=== PATIENT | female | born 1935 | race Caucasian/White ===

== ENCOUNTER 2017-05-13 10:35 | Inpatient (IN) | payer OTHER, BC ==
[~2017-05-13] VITALS: Ht 154.9 cm; Wt 94.4 kg
[~2017-05-13 10:35] MED LIST: ASPI-232 PO; CALC200T PO; CLOP1TAB15 PO; DIGO0.1267 PO; FENO160T PO; FURO40TA3 PO; GABA300C19 PO; INSU70IN2 SC; ISOS60TA2 PO; PANT40TA PO; RMR15 PO; TPRSR/50 PO; TRAM-10 PO; VYT1080 PO; WARF7.5T4 PO
[2017-05-13] MEDS ORDERED: ALBUT/IPRATROP 3MG/0.5MG NEB 3 ML VIAL INH STA (11:07)
--- NOTE | 2017-05-13 11:13 | EMERGENCY ROOM VISIT NOTE ---
History Report prepared by Annalee: Hiren Maravilla Under the Supervision of: Dr. Sin Vemra M.D. First contact with patient: 10:57 Chief Complaint: NAUSEA Stated Complaint: NAUSEA, UNABLE TO STAND UP Nursing Triage Summary: Nauseated since last night and dyspnea. Last BM a few days ago. Chronic constipation issues. History of Present Illness The patient is an 81 year old female who presents to the Emergency Room with complaints of persistent nausea since last night. That patient's states that "she just feels sick." She describes feeling generally weak. This morning she has also had urinary frequency and burning with urination. She has baseline shortness of breath secondary to asthma, but notes that she is more short of breath today. She also started coughing yesterday. She has inhalers at home. She denies fevers, headache, chest pain, abdominal pain, back pain, or numbness. The patient states that she hasn't taken her medications for two days , however her states that she took her medications this morning. The patient denies the possibility of taking too much medication. The patient has constipation chronically. She hasn't had a BM in several days. The patient takes Plavix, Coumadin, and Digoxin. She is diabetic. The patient's BSG was 219 this morning per . She takes insulin. The patient's notes that she is intermittently confused. The patient has a history of cancer, and is currently in remission. The patient is s/p colon resection. Source of History: patient, spouse/significant other Onset: last night Position: other (GI) Quality: other (nausea) Timing: other (persistent) Associated Symptoms: + cough, + SOB, + urinary symptoms, + weakness, No fevers, No headache, No chest pain, No vomiting, No abdominal pain, No back pain , No numbness Review of Systems See HPI for pertinent positives & negatives. A total of 10 systems reviewed and were otherwise negative. Past Medical & Surgical Medical Problems: (1) Coronary artery disease (2) Depression (3) Diabetes (4) Elevated troponin (5) Fever Old medical records were reviewed. Nurse's notes were reviewed and I agree with. Cardiac disease. She tells me she's had 7 stents in the past Family History Patient reports no known family medical history. Social History Smoking Status: Never Smoker Drug Use: none Marital Status: Occupation Status: retired Current/Historical Medications Scheduled Aspirin (Aspir-81), 81 MG PO DAILY Calcium Carbonate-Vitamin D (Oscal 500/200 D-3), 1 TAB PO BID Citalopram Hydrobromide (Celexa), 20 MG PO DAILY Clopidogrel (Plavix), 75 MG PO DAILY Digoxin (Digoxin), 0.125 MG PO MWF Ezetimibe/Simvastatin (Vytorin 10-80 mg), 1 TAB PO QPM Fenofibrate (Tricor), 160 MG PO DAILY Fluticasone-Salmeterol 115/21 Mcg (Advair Hfa 115/21 Mcg), 2 PUFF INH BID Gabapentin (Neurontin), 300 MG PO HS Insulin Isophan/Regular (Novolin 70/30), 32 UNITS SC QAM Insulin Isophan/Regular (Novolin 70/30), 34 UNITS SC QPM Isosorbide Mononitrate Ext Rel (Imdur Ext Rel), 30 MG PO DAILY Metoprolol Succinate (Metoprolol Succinate ER), 75 MG PO DAILY Nitroglycerin (Nitrostat), 0.4 MG UT PRN Pantoprazole Sodium (Protonix), 40 MG PO DAILY Warfarin Sodium (Warfarin Sodium), 0 PO UD Scheduled PRN Albuterol Sulfate (Proventil Hfa), 2 PUFFS INH Q4 PRN for Wheezing Furosemide (Lasix), 40 MG PO PRN PRN for fluid retention Hydrocodone/Acetaminophen 5MG/325MG ([place] 5MG/325MG), 1 TABLET PO Q4H PRN for Pain Allergies Coded Allergies: Sulfa Antibiotics (Unverified Allergy, Unknown, HIVES, 06/07/16) Physical Exam Vital Signs Date Time Temp Pulse Resp B/P (MAP) Pulse Ox O2 Delivery O2 Flow Rate FiO2 05/13/17 13:13 95 Room Air 05/13/17 12:33 85 25 190/108 95 Room Air 05/13/17 10:50 36.7 62 24 195/92 94 Room Air Physical Exam General: Mildly tachypneic older female, otherwise in no acute distress. Alert to person and place but not date. HEENT: Normal cephalic atraumatic. Pupils are equal round and reactive to light. Extraocular movements are intact. Oropharynx is pink with moist mucous membranes. No swelling of the mouth lips or tongue. Neck: Supple with a midline trachea. No meningeal signs or stiffness, no JVD or bruits. No Stridor. Chest: Clear to auscultation bilaterally. No wheezes or rhonchi. No increased work of breathing. Heart: regular rate and rhythm. Abdomen: Soft nontender, nondistended without rebound guarding or rigidity. Extremities: 1+ bilateral lower extremity edema with chronic venous changes. No cyanosis or clubbing. No calf tenderness or assymetry Spine/Back. Non tender to palpation. No CVA tenderness Skin: Good turgor without rashes. Neurologic exam: Cranial nerves two through 12 are intact. Motor and sensation are intact and symmetrical throughout. Medical Decision & Procedures ER Provider Diagnostic Interpretation: X-ray results as stated below per interpretation by me and the radiologist: Radiology results as stated below per my review and radiologist interpretation: CHEST ONE VIEW PORTABLE CLINICAL HISTORY: Chest pain and nausea. COMPARISON STUDY: Chest radiograph June 07, 2016. FINDINGS: There is no pneumothorax or pleural effusion. There is no evidence for pulmonary edema. There is mild lower lung interstitial thickening which is similar to prior exam. Moderate cardiomegaly is noted. There is no lobar consolidation. IMPRESSION: 1. Mild lower lung interstitial thickening. This is similar to prior exam and may be chronic. 2. Moderate cardiomegaly. No evidence of overt edema. Electronically signed by: Artie Hassan M.D. 05/13/2017 11:39 AM Dictated Date/Time: 05/13/2017 11:[address] OF THE HEAD WITHOUT CONTRAST CLINICAL HISTORY: Weakness. Nausea. COMPARISON STUDY: No previous studies for comparison. CT DOSE: 537.48 mGy.cm TECHNIQUE: Helical axial images of the head were obtained without IV contrast. Automated exposure control was utilized for the study. FINDINGS: No acute intracranial hemorrhage, midline shift or mass effect is present. Ventricular system is unremarkable for age. Basilar cisterns are patent. There are no extra axial collections. White matter hypodensity suggests small vessel disease. There are no findings to suggest acute dural sinus thrombosis or acute territorial infarct. There are no significant calvarial abnormalities. Visualized portions of the sinuses and mastoid air cells are clear. IMPRESSION: No acute intracranial findings. Electronically signed by: Artie Hassan M.D. 05/13/2017 12:28 PM Dictated Date/Time: 05/13/2017 12:26 PM Laboratory Results 05/13/17 11:20 Red Blood Count 5.17, Mean Corpuscular Volume 89.2, Mean Corpuscular Hemoglobin 27.7, Mean Corpuscular Hemoglobin Concent 31.0, Mean Platelet Volume 10.8, Neutrophils (%) (Auto) 74.3, Lymphocytes (%) (Auto) 14.3, Monocytes (%) (Auto) 9.0, Eosinophils (%) (Auto) 1.4, Basophils (%) (Auto) 0.3, Neutrophils # (Auto) 5.17, Lymphocytes # (Auto) 1.00, Monocytes # (Auto) 0.63, Eosinophils # (Auto) 0.10, Basophils # (Auto) 0.02 05/13/17 11:20 Test 05/13/17 11:20 05/13/17 12:07 White Blood Count 6.97 K/uL (4.8-10.8) Red Blood Count 5.17 M/uL (4.2-5.4) Hemoglobin 14.3 g/dL (12.0-16.0) Hematocrit 46.1 % (37-47) Mean Corpuscular Volume 89.2 fL (80-100) Mean Corpuscular Hemoglobin 27.7 pg (25-34) Mean Corpuscular Hemoglobin Concent 31.0 g/dl (32-36) Platelet Count 216 K/uL (130-400) Mean Platelet Volume 10.8 fL (7.4-10.4) Neutrophils (%) (Auto) 74.3 % Lymphocytes (%) (Auto) 14.3 % Monocytes (%) (Auto) 9.0 % Eosinophils (%) (Auto) 1.4 % Basophils (%) (Auto) 0.3 % Neutrophils # (Auto) 5.17 K/uL (1.4-6.5) Lymphocytes # (Auto) 1.00 K/uL (1.2-3.4) Monocytes # (Auto) 0.63 K/uL (0.11-0.59) Eosinophils # (Auto) 0.10 K/uL (0-0.5) Basophils # (Auto) 0.02 K/uL (0-0.2) RDW Standard Deviation 44.4 fL (36.4-46.3) RDW Coefficient of Variation 13.6 % (11.5-14.5) Immature Granulocyte % (Auto) 0.7 % Immature Granulocyte # (Auto) 0.05 K/uL (0.00-0.02) Prothrombin Time 16.5 SECONDS (9.0-12.0) Prothromb Time International Ratio 1.5 (0.9-1.1) Activated Partial Thromboplast Time 31.7 SECONDS (21.0-31.0) Partial Thromboplastin Ratio 1.2 Anion Gap 8.0 mmol/L (3-11) Est Creatinine Clear Calc Drug Dose 33.7 ml/min Estimated GFR () 41.0 Estimated GFR (Non- 35.4 BUN/Creatinine Ratio 9.3 (10-20) Calcium Level 9.3 mg/dl (8.5-10.1) Total Bilirubin 0.9 mg/dl (0.2-1) Direct Bilirubin 0.2 mg/dl (0-0.2) Aspartate Amino Transf (AST/SGOT) 14 U/L (15-37) Alanine Aminotransferase (ALT/SGPT) 22 U/L (12-78) Alkaline Phosphatase 71 U/L (45-117) Total Creatine Kinase 104 U/L (26-192) Creatine Kinase MB 1.5 ng/ml (0.5-3.6) Creatine Kinase MB Ratio 1.4 (0-3.0) Troponin I 0.121 ng/ml (0-0.045) Total Protein 7.5 gm/dl (6.4-8.2) Albumin 3.8 gm/dl (3.4-5.0) Lipase 170 U/L (73-393) Thyroid Stimulating Hormone (TSH) 1.520 uIu/ml (0.300-4.500) Digoxin Level 0.5 ng/ml (0.8-2.0) Urine Color YELLOW Urine Appearance CLEAR (CLEAR) Urine pH >= 9.0 (4.5-7.5) Urine Specific [place] 1.018 (1.000-1.030) Urine Protein NEG (NEG) Urine Glucose (UA) 2+ (NEG) Urine Ketones NEG (NEG) Urine Occult Blood NEG (NEG) Urine Nitrite NEG (NEG) Urine Bilirubin NEG (NEG) Urine Urobilinogen NEG (NEG) Urine Leukocyte Esterase MODERATE (NEG) Urine WBC (Auto) >30 /hpf (0-5) Urine RBC (Auto) 0-4 /hpf (0-4) Urine Hyaline Casts (Auto) 1-5 /lpf (0-5) Urine Epithelial Cells (Auto) >30 /lpf (0-5) Urine Bacteria (Auto) NEG (NEG) Urine Renal Epithelial Cells /lpf (0-5) Laboratory studies as stated above per my review. Medications Administered Medications (Trade) Dose Ordered Sig/Jos Route Start Time Stop Time Status Last Admin Dose Admin Albuterol/ Ipratropium (Duoneb) 3 ml NOW STAT INH 05/13/17 11:07 05/13/17 11:10 DC 05/13/17 11:39 3 ML Aspirin (Aspirin Chew) 324 mg NOW STAT PO 05/13/17 12:56 05/13/17 12:57 DC 05/13/17 13:00 324 MG ECG Indication: weakness Rate (beats per minute): 78 Rhythm: atrial fibrillation Findings: other (non-specific T wave abnormalities, no ST elevation) Comparison ECG Date: 09 June 2016 Change: no significant change ED Course 1100: Past medical records reviewed. The patient was evaluated in room B5, and a complete history and physical examination were performed. 1107: DuoNeb 3 ml INH. 1140: The patient was resting comfortably. IV was established she is receiving a Nebulizer treatment while an EKG is being obtained. 1235: Rechecked the patient. 1255: The patient was resting comfortably. I discussed hospitalization with her and she agrees with the plan. 1256: Aspirin 324 mg PO. 1315: Discussed the case with Dr. Ram, [facility] Hospitalist .The patient will be evaluated. Medical Decision Differential diagnosis includes CHF, cardiac disease, electrolyte or metabolic abnormality, infection, intracranial process. Blood pressure Screening: Patient was found to have an elevated blood pressure and was referred to their primary doctor for recheck and further treatment. Medication Reconciliation: I attest that I have personally reviewed the patient' s current medication list. This patient comes in as described above. She has vague symptoms of not feeling well. I saw her when she was brought back from triage and she seemed pretty tachypneic after just transporting from the wheelchair to the bed after while she seemed to be doing better and after receiving albuterol/Atrovent neb. She is non-hypoxemic. EKG does not show any definite acute ischemic changes. Her troponin was mildly elevated however. She has no significant electrolyte or metabolic abnormalities acutely. She has nothing to suggest sepsis or infection as far. Chest x-ray shows cardiomegaly but no overt CHF, her BNP was also elevated. I do think she needs to be admitted. She's been weak and tired and also had some mildly elevated troponin and it is possible this is an underlying cardiac event. I have consulted Dr. Ram to see the patient in the ER. Consults Time Called: 1305 Consulting Physician: Dr. Ram [facility] Hospitalist Returned Call: [phone] The patient will be evaluated. Impression Primary Impression: Weakness Additional Impressions: Elevated troponin SOB (shortness of breath) Scribe Attestation The scribe's documentation has been prepared under my direction and personally reviewed by me in its entirety. I confirm that the note above accurately reflects all work, treatment, procedures, and medical decision making performed by me. Departure Information Dispostion Being Evaluated By Hospitalist Referrals Dipika Cox M.D. (PCP) Patient Instructions [facility] Problem Qualifiers
[2017-05-13 11:40] LABS: BASO % 0.3 %; BASO ABS # 0.02 K/uL (0-0.2); COMPLETE YES; EOS % 1.4 %; HEMATOCRIT 46.1 % (37-47); IG% 0.7 %; LYMPH % 14.3 %; MEAN CELL VOLUME 89.2 fL (80-100); MEAN CORPUSCULAR HEMOGLOBIN 27.7 pg (25-34); MEAN PLATELET VOLUME 10.8 fL (7.4-10.4); NEUT % 74.3 %; PLATELET COUNT 216 K/uL (130-400); RED BLOOD COUNT 5.17 M/uL (4.2-5.4); WHITE BLOOD COUNT 6.97 K/uL (4.8-10.8)
--- NOTE | 2017-05-13 11:40 | DIAGNOSTIC IMAGING REPORT ---
CHEST ONE VIEW PORTABLE CLINICAL HISTORY: Chest pain and nausea. COMPARISON STUDY: Chest radiograph June 07, 2016. FINDINGS: There is no pneumothorax or pleural effusion. There is no evidence for pulmonary edema. There is mild lower lung interstitial thickening which is similar to prior exam. Moderate cardiomegaly is noted. There is no lobar consolidation. IMPRESSION: 1. Mild lower lung interstitial thickening. This is similar to prior exam and may be chronic. 2. Moderate cardiomegaly. No evidence of overt edema. Electronically signed by: Artie Hassan M.D. 05/13/2017 11:39 AM Dictated Date/Time: 05/13/2017 11:37 AM
[2017-05-13 11:57] LABS: BUN/CREATININE RATIO 9.3 (10-20); CALCIUM 9.3 mg/dl (8.5-10.1); CREATININE 1.4 mg/dl (0.60-1.20); INR 1.5 (0.9-1.1); PARTIAL THROMBOPLASTIN RATIO 1.2; POTASSIUM 3.8 mmol/L (3.5-5.1); PROTHROMBIN TIME (PATIENT) 16.5 SECONDS (9.0-12.0)
[2017-05-13 12:08] LABS: CKMB/CK RATIO 1.4 (0-3.0); THYROID STIMULATING HORMONE 1.52 uIu/ml (0.300-4.500)
--- NOTE | 2017-05-13 12:30 | DIAGNOSTIC IMAGING REPORT ---
CT OF THE HEAD WITHOUT CONTRAST CLINICAL HISTORY: Weakness. Nausea. COMPARISON STUDY: No previous studies for comparison. CT DOSE: 537.48 mGy.cm TECHNIQUE: Helical axial images of the head were obtained without IV contrast. Automated exposure control was utilized for the study. FINDINGS: No acute intracranial hemorrhage, midline shift or mass effect is present. Ventricular system is unremarkable for age. Basilar cisterns are patent. There are no extra axial collections. White matter hypodensity suggests small vessel disease. There are no findings to suggest acute dural sinus thrombosis or acute territorial infarct. There are no significant calvarial abnormalities. Visualized portions of the sinuses and mastoid air cells are clear. IMPRESSION: No acute intracranial findings. Electronically signed by: Artie Hassan M.D. 05/13/2017 12:28 PM Dictated Date/Time: 05/13/2017 12:26 PM
[2017-05-13] MEDS ORDERED: INSU70IN2 SC ×2 (12:35)
[2017-05-13] MEDS ORDERED: ISOS30TA35 PO (12:35)
[2017-05-13] MEDS ORDERED: MRP15 PO (12:35)
[2017-05-13] MEDS ORDERED: LNX125 PO (12:35)
[2017-05-13] MEDS ORDERED: CITA20TA9 PO (12:35)
[2017-05-13] MEDS ORDERED: ASPIRIN 81 MG CHEW PO STA (12:56)
[2017-05-13 13:08] LABS: URINE APPEARANCE CLEAR (CLEAR); URINE BILIRUBIN NEG (NEG); URINE COLOR YELLOW; URINE EPITHELIAL CELL AUTO >30 /lpf (0-5); URINE NITRITE NEG (NEG); URINE PH >= 9.0 (4.5-7.5); URINE SPECIFIC GRAVITY 1.018 (1.000-1.030); UROBILINOGEN NEG (NEG)
[2017-05-13 13:13] VITALS: O2SAT 95; Ht 154.9 cm; Wt 94.4 kg
--- NOTE | 2017-05-13 13:15 | History and Physical ---
History & Physical Date & Time of Service: May 13, 2017 at 13:15 . Chief Complaint: nausea, weakness . Primary Care Physician: Dipika Cox M.D. . History of Present Illness Source: patient, family, clinic records, hospital records 81-year-old female followed by Dr. Cox. History of ischemic heart disease, CHF, chronic atrial fibrillation, asthma, diabetes, and other problems noted below. Did not feel well last night or this morning. She has been experiencing nausea and weakness. No fever. No chest pain. No cough. Chronic dyspnea on exertion unchanged. No abdominal pain, vomiting, diarrhea, melena, hematochezia. No urinary symptoms. No headache or focal neurologic symptoms. Did not take any of her medications this morning. Blood sugar at home was around 200 at 8 a.m. . Past Medical/Surgical History Chronic and Resolved Medical Problems: (1) Anemia Status: Chronic (2) Anxiety Status: Chronic (3) Asthma Status: Chronic (4) Carpal tunnel syndrome Status: Chronic (5) Chronic kidney disease (CKD), stage III (moderate) Status: Chronic (6) Coronary artery disease Permanent Comment: s/p UT, s/p PCI Status: Chronic (7) Depression Status: Resolved (8) Depression Status: Chronic (9) Diabetes mellitus, type 2 Status: Chronic (10) Diastolic CHF, chronic Status: Chronic (11) Dyslipidemia Status: Chronic (12) GERD (gastroesophageal reflux disease) Status: Chronic (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 Status: Chronic (14) History of colon cancer Status: Chronic (15) History of herpes zoster Status: Chronic (16) Nonalcoholic fatty liver disease Status: Chronic (17) Obesity, Class III, BMI 40-49.9 (morbid obesity) Status: Chronic (18) Osteoarthritis Status: Chronic (19) Pulmonary nodules Permanent Comment: CT and PET 2011 Status: Chronic (20) Restless leg syndrome Status: Chronic (21) Sleep apnea Status: Chronic (22) Systolic CHF, chronic Permanent Comment: LVEF 35% Status: Chronic Surgical Problems: (1) Status post radical removal vulva and nodes Status: Chronic (2) Status post cardiac catheterization Status: Chronic (3) Status post cholecystectomy Status: Chronic (4) Status post coronary artery stent placement Status: Chronic (5) Status post hysterectomy Status: Chronic (6) Status post partial colectomy Permanent Comment: colon Ca Status: Chronic . Family History FATHER Heart disease Stroke MOTHER Heart disease SON Kidney disease Diabetes mellitus DAUGHTER Heart disease Seizures Social History Smoking Status: Never Smoker Alcohol Use: occasionally (very rare) Drug Use: none Marital Status: Occupational Status: retired Multi-Drug Resistant Organisms History of MDRO: No Allergies Coded Allergies: Sulfa Antibiotics (Unverified Allergy, Unknown, HIVES, 06/07/16) Home Medications Scheduled Aspirin (Aspir-81), 81 MG PO DAILY Calcium Carbonate-Vitamin D (Oscal 500/200 D-3), 1 TAB PO BID Citalopram Hydrobromide (Celexa), 20 MG PO DAILY Clopidogrel (Plavix), 75 MG PO DAILY Digoxin (Digoxin), 0.125 MG PO MWF Ezetimibe/Simvastatin (Vytorin 10-80 mg), 1 TAB PO QPM Fenofibrate (Tricor), 160 MG PO DAILY Fluticasone-Salmeterol 115/21 Mcg (Advair Hfa 115/21 Mcg), 2 PUFF INH BID Gabapentin (Neurontin), 300 MG PO HS Insulin Isophan/Regular (Novolin 70/30), 32 UNITS SC QAM Insulin Isophan/Regular (Novolin 70/30), 34 UNITS SC QPM Isosorbide Mononitrate Ext Rel (Imdur Ext Rel), 30 MG PO DAILY Metoprolol Succinate (Metoprolol Succinate ER), 75 MG PO DAILY Nitroglycerin (Nitrostat), 0.4 MG UT PRN Pantoprazole Sodium (Protonix), 40 MG PO DAILY Warfarin Sodium (Warfarin Sodium), 0 PO UD Scheduled PRN Albuterol Sulfate (Proventil Hfa), 2 PUFFS INH Q4 PRN for Wheezing Furosemide (Lasix), 40 MG PO PRN PRN for fluid retention Hydrocodone/Acetaminophen 5MG/325MG ([place] 5MG/325MG), 1 TABLET PO Q4H PRN for Pain Review of Systems Constitutional: No fever, No weight loss Eyes: + worsening of vision (intermittent blurred vision) ENT: No hearing loss, No nasal symptoms, No sore throat Respiratory: + dyspnea on exertion (chronic), No cough Cardiovascular: + edema, No chest pain, No palpitations Abdomen: + nausea, No pain, No vomiting, No diarrhea, No GI bleeding Musculoskeletal: + joint pain (knees) Genitourinary - Female: No dysuria, No hematuria Neurologic: + memory loss, + problem reported (no headaches; no diabetic neuropathy) Psychiatric: + depression symptoms Endocrine: + fatigue, + problem reported (blood sugars fluctuate), No excessive thirst, No excessive urination Hematologic / Lymphatic: No abnormal bleeding/bruising, No swollen lymph nodes Integumentary: No rash, No new/changing skin lesions Physical Exam Vital Signs Date Time Temp Pulse Resp B/P (MAP) Pulse Ox O2 Delivery O2 Flow Rate FiO2 05/13/17 12:33 85 25 190/108 95 Room Air 05/13/17 10:50 36.7 62 24 195/92 94 Room Air General Appearance: WD/WN, no apparent distress, + obese Head: normocephalic, atraumatic Eyes: normal inspection, PERRL, EOMI, sclerae normal, + pertinent finding ( conjunctivae pink) ENT: hearing grossly normal, pharynx normal Neck: supple, no adenopathy, thyroid normal, no JVD, trachea midline Respiratory/Chest: lungs clear, no respiratory distress, no accessory muscle use Cardiovascular: regular rate, rhythm, no edema, no gallop, no JVD, no murmur, + pertinent finding (DP pulses palpable; PT pulses not palpable; capillary refill toes 2 sec) Abdomen/GI: normal bowel sounds, non tender, soft, no organomegaly Extremities/Musculoskelatal: no calf tenderness, no pedal edema, + pertinent finding (degenerative changes knees) Neurologic/Psych: 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 (PERRL, EOMI, no dysarthria, no facial palsy), no motor/sensory deficits (motor strength upper and lower extremties 4+/5 bilat), normal reflexes (plantar reflexes downgoing), + disoriented (oriented to person and place, not date; can name current but not past president; can name months forward, but not backward) Skin: normal color, warm/dry, no rash Lymphatic: no adenopathy (cervical) Diagnostics Laboratory Results Results Past 24 Hours Test 05/13/17 11:07 05/13/17 11:20 05/13/17 12:07 Range/Units Creatine Kinase MB Ratio 1.4 0-3.0 White Blood Count 6.97 4.8-10.8 K/uL Red Blood Count 5.17 4.2-5.4 M/uL Hemoglobin 14.3 12.0-16.0 g/dL Hematocrit 46.1 37-47 % Mean Corpuscular Volume 89.2 80-100 fL Mean Corpuscular Hemoglobin 27.7 25-34 pg Mean Corpuscular Hemoglobin Concent 31.0 32-36 g/dl Platelet Count 216 130-400 K/uL Mean Platelet Volume 10.8 7.4-10.4 fL Neutrophils (%) (Auto) 74.3 % Lymphocytes (%) (Auto) 14.3 % Monocytes (%) (Auto) 9.0 % Eosinophils (%) (Auto) 1.4 % Basophils (%) (Auto) 0.3 % Neutrophils # (Auto) 5.17 1.4-6.5 K/uL Lymphocytes # (Auto) 1.00 1.2-3.4 K/uL Monocytes # (Auto) 0.63 0.11-0.59 K/uL Eosinophils # (Auto) 0.10 0-0.5 K/uL Basophils # (Auto) 0.02 0-0.2 K/uL RDW Standard Deviation 44.4 36.4-46.3 fL RDW Coefficient of Variation 13.6 11.5-14.5 % Immature Granulocyte % (Auto) 0.7 % Immature Granulocyte # (Auto) 0.05 0.00-0.02 K/uL Prothrombin Time 16.5 9.0-12.0 SECONDS Prothromb Time International Ratio 1.5 0.9-1.1 Activated Partial Thromboplast Time 31.7 21.0-31.0 SECONDS Partial Thromboplastin Ratio 1.2 Sodium Level 140 136-145 mmol/L Potassium Level 3.8 3.5-5.1 mmol/L Chloride Level 108 98-107 mmol/L Carbon Dioxide Level 24 21-32 mmol/L Anion Gap 8.0 3-11 mmol/L Blood Urea Nitrogen 13 7-18 mg/dl Creatinine 1.40 0.60-1.20 mg/dl Est Creatinine Clear Calc Drug Dose 33.7 ml/min Estimated GFR () 41.0 Estimated GFR (Non- 35.4 BUN/Creatinine Ratio 9.3 10-20 Random Glucose 204 70-99 mg/dl Calcium Level 9.3 8.5-10.1 mg/dl Total Bilirubin 0.9 0.2-1 mg/dl Direct Bilirubin 0.2 0-0.2 mg/dl Aspartate Amino Transf (AST/SGOT) 14 15-37 U/L Alanine Aminotransferase (ALT/SGPT) 22 12-78 U/L Alkaline Phosphatase 71 45-117 U/L Total Creatine Kinase 104 26-192 U/L Creatine Kinase MB 1.5 0.5-3.6 ng/ml Troponin I 0.121 0-0.045 ng/ml Total Protein 7.5 6.4-8.2 gm/dl Albumin 3.8 3.4-5.0 gm/dl Lipase 170 73-393 U/L Thyroid Stimulating Hormone (TSH) 1.520 0.300-4.500 uIu/ml Digoxin Level 0.5 0.8-2.0 ng/ml Microbiology Results 05/13/17 Urine Culture, Received Pending Diagnostic Radiology CHEST ONE VIEW PORTABLE FINDINGS: There is no pneumothorax or pleural effusion. There is no evidence for pulmonary edema. There is mild lower lung interstitial thickening which is similar to prior exam. Moderate cardiomegaly is noted. There is no lobar consolidation. IMPRESSION: 1. Mild lower lung interstitial thickening. This is similar to prior exam and may be chronic. 2. Moderate cardiomegaly. No evidence of overt edema. Electronically signed by: Artie Hassan M.D. 05/13/2017 11:[address] OF THE HEAD WITHOUT CONTRAST CLINICAL HISTORY: Weakness. Nausea. COMPARISON STUDY: No previous studies for comparison. CT DOSE: 537.48 mGy.cm TECHNIQUE: Helical axial images of the head were obtained without IV contrast. Automated exposure control was utilized for the study. FINDINGS: No acute intracranial hemorrhage, midline shift or mass effect is present. Ventricular system is unremarkable for age. Basilar cisterns are patent. There are no extra axial collections. White matter hypodensity suggests small vessel disease. There are no findings to suggest acute dural sinus thrombosis or acute territorial infarct. There are no significant calvarial abnormalities. Visualized portions of the sinuses and mastoid air cells are clear. IMPRESSION: No acute intracranial findings. Electronically signed by: Artie Hassan M.D. 05/13/2017 12:28 PM . EKG EKG performed at 14:57 reviewed and demonstrated AF at 80 / minute, slight ST depression in inferior and lateral leads. . Impression Assessment and Plan CORONARY ARTERY DISEASE No chest pain. Serum troponin slightly elevated. EKG shows AF with slight ST depression in inferior and lateral leads. Check serial cardiac markers. Continue aspirin, metoprolol, nitrates, statin. CHF Records indicate both left ventricular systolic + diastolic heart failure. LVEF 35% in 2009. Compensated. ATRIAL FIBRILLATION Rate controlled. Continue metoprolol, digoxin, warfarin. ASTHMA Stable. Continue Advair, albuterol. DM TYPE 2 Blood sugars fluctuate at home. Uses 70/30 BID. Did not eat or take insulin this morning. Check Hgb A1C. Lantus / NovoLog during hospital stay. DYSLIPIDEMIA Check lipid profile. Continue ezetimibe, simvastatin, fenofibrate. DEPRESSION Continue citalopram. Consider Psychiatry consult. MEMORY DIFFICULTIES Possible early dementia. CT head shows small vessel ischemic changes. Check B12, TSH. VTE PROPHYLAXIS Continue warfarin. Ambulate. RESUSCITATION STATUS Discussed with patient and her . She does not have a living will. She would like resuscitation attempted in the event of a cardiopulmonary arrest if there is a reasonable chance of a meaningful recovery, but does not want prolonged extraordinary measures if prognosis is poor. Therefore, code status = "Level 1" (full resuscitation). DISPOSITION Expected discharge to home. Internal Medicine follow-up with Dr. Cox. . VTE Prophylaxis Given or contraindicated: Warfarin (Coumadin)
[2017-05-13 13:16] LABS: MANUAL MICROSCOPIC REQUIRED? NO; REVIEW REQ? YES; SULFASALICYLIC ACID NEG (NEG)
[2017-05-13] MEDS ORDERED: NITROGLYCERIN 0.4 MG SL PER TAB CHARGE SL PRN (13:30)
[2017-05-13] MEDS ORDERED: NTRGSL/4 UT (14:13)
[2017-05-13] MEDS ORDERED: ALBUAER INH (14:13)
[2017-05-13] MEDS ORDERED: HYDR-5688 PO (14:13)
[2017-05-13] MEDS ORDERED: FLUT115A INH (14:13)
[2017-05-13] MEDS ORDERED: WARF4TAB43 PO (14:13)
[2017-05-13] MEDS ORDERED: HYDROCODONE/ACETAMOPHEN 5/325MG TAB PO PRN (14:15)
[2017-05-13] MEDS ORDERED: ALBUTEROL HFA 8 GM INHALER INH PRN (14:15)
[2017-05-13 14:20] VITALS: BP 217/129; PULSE 89; TEMP 36.8; O2SAT 95
[2017-05-13] MEDS ORDERED: CLOPIDOGREL BISULFATE 75 MG TAB PO ONE (14:22)
[2017-05-13] MEDS ORDERED: PANTOprazole SOD 40 MG TAB PO ONE (14:22)
[2017-05-13] MEDS ORDERED: CITALOPRAM 20 MG TAB PO ONE (14:22)
[2017-05-13] MEDS ORDERED: ISOSORBIDE MONONITRATE 30 MG TABCR PO ONE (14:22)
[2017-05-13] MEDS ORDERED: METOPROLOL SUCC 50MG EXT REL TAB PO ONE (14:22)
[2017-05-13] MEDS ORDERED: LEVALBUTEROL 0.63MG/3 ML NEB INH PRN (14:30)
[2017-05-13] MEDS ORDERED: ONDANSETRON INJ 2 MG/ML 2 ML VIAL IV PRN (14:30)
[2017-05-13] MEDS ORDERED: GLUCAGON FOR INJ 1 MG VIAL SQ PRN (15:00)
[2017-05-13] MEDS ORDERED: GLUCOSE 40% GEL 15 GM TUBE PO PRN (15:00)
[2017-05-13] MEDS ORDERED: GLUCOSE 10 TABS/TUBE PO PRN (15:00)
[2017-05-13] MEDS ORDERED: DEXTROSE 50% 50 ML SYR IV PRN (15:00)
[2017-05-13] MEDS ORDERED: ENALAPRILAT IV 0.625 MG in DEXTROSE 5% 25ML 25 ML IV PRN (15:30)
[2017-05-13 15:49] VITALS: BP 178/98; PULSE 68; TEMP 37.1; O2SAT 94
[2017-05-13 16:00] VITALS: O2SAT 94
[2017-05-13] MEDS ORDERED: WARFARIN SOD 2 MG TAB PO ONE (16:00)
[2017-05-13] MEDS: INSULIN ASPART 100 UNITS/ML 3 ML PEN SC SCH ×2 (17:30→21:00)
[2017-05-13 20:19] VITALS: BP 179/87; PULSE 65; TEMP 37; O2SAT 96
[2017-05-13] MEDS: SIMVASTATIN 80 MG TAB PO SCH (21:18)
[2017-05-13] MEDS: EZETIMIBE 10MG TAB PO SCH (21:18)
[2017-05-13] MEDS: GABAPENTIN 300 MG CAP PO SCH (21:19)
[2017-05-13] MEDS: INSULIN GLARGINE SOLOSTAR 100 UNITS/ML 3 ML PEN SC SCH (21:23)
[2017-05-13] MEDS: HEPARIN SOD 5000 UNIT/0.5 ML CARP SQ SCH (21:24)
[2017-05-13 23:16] VITALS: BP_SYST 151; BP_SYST 156; BP_SYST 168; BP_DIAS 72; BP_DIAS 73; BP_DIAS 90; PULSE 100; PULSE 73; PULSE 80; TEMP 36.6; O2SAT 95
[2017-05-14] VITALS (9 sets, daily range): BP systolic 124–162; BP diastolic 71–82; PULSE 56–78; TEMP 36.4–37.1; O2SAT 90–97
[2017-05-14] MEDS: ACETAMINOPHEN 325 MG TAB PO PRN (00:38)
[2017-05-14] MEDS ORDERED: HYDROmorphone INJ 0.5 MG/0.5 ML SYR IV PRN (01:15)
[2017-05-14] MEDS: HEPARIN SOD 5000 UNIT/0.5 ML CARP SQ SCH ×2 (05:40→20:57)
[2017-05-14 06:44] LABS: BUN/CREATININE RATIO 11.4 (10-20); CALCIUM 8.6 mg/dl (8.5-10.1); CREATININE 1.4 mg/dl (0.60-1.20); POTASSIUM 4.2 mmol/L (3.5-5.1)
[2017-05-14 06:45] LABS: INR 1.3 (0.9-1.1); PROTHROMBIN TIME (PATIENT) 13.9 SECONDS (9.0-12.0)
[2017-05-14 06:56] LABS: CHOLESTEROL/HDL RATIO 4.8; CKMB/CK RATIO 1.6 (0-3.0)
[2017-05-14] MEDS: INSULIN ASPART 100 UNITS/ML 3 ML PEN SC SCH ×4 (08:02→20:55)
[2017-05-14] MEDS: INSULIN GLARGINE SOLOSTAR 100 UNITS/ML 3 ML PEN SC SCH ×2 (08:03→20:56)
[2017-05-14] MEDS: METOPROLOL SUCC 50MG EXT REL TAB PO SCH (08:03)
[2017-05-14] MEDS: PANTOprazole SOD 40 MG TAB PO SCH (08:03)
[2017-05-14] MEDS: CITALOPRAM 20 MG TAB PO SCH (08:04)
[2017-05-14] MEDS: CLOPIDOGREL BISULFATE 75 MG TAB PO SCH (08:04)
[2017-05-14] MEDS: ISOSORBIDE MONONITRATE 30 MG TABCR PO SCH (08:04)
[2017-05-14] MEDS: ASPIRIN 81 MG ECTAB PO SCH (08:04)
[2017-05-14] MEDS ORDERED: HEPARIN SOD 5000 UNIT/0.5 ML CARP SQ ONE (09:42)
--- NOTE | 2017-05-14 09:59 | Progress Note ---
Medicine Progress Note Date & Time of Visit: May 14, 2017 at 09:20 . Subjective No fever. No chest pain. Dyspnea on exertion- no change from baseline. Nausea improved. No diarrhea, melena, hematochezia. Mild dysuria, chronic. . Objective Last 8 Hrs Date Time Temp Pulse Resp B/P (MAP) Pulse Ox O2 Delivery O2 Flow Rate FiO2 05/14/17 07:34 78 21 161/82 (108) 95 Room Air 05/14/17 07:31 72 22 127/78 (94) 95 Room Air 05/14/17 07:28 36.4 68 19 151/71 (97) 91 Room Air 05/14/17 04:00 Room Air 05/14/17 03:03 36.4 67 20 138/77 (97) 90 Room Air Physical Exam: General- no distress Neck- no JVD Lungs- clear to auscultation Heart- irregular, no gallop appreciated Abdomen- + BS, soft, nontender Extremities- trace ankle edema, no calf tenderness Neuro- alert, anxious, oriented to person and place, can state day of the week, but not the year, can name last president, but not current one; can name months forward, but not backward . Laboratory Results: Last 24 Hours Test 05/13/17 11:07 05/13/17 11:20 05/13/17 12:07 05/13/17 16:16 Creatine Kinase MB Ratio 1.4 White Blood Count 6.97 K/uL Red Blood Count 5.17 M/uL Hemoglobin 14.3 g/dL Hematocrit 46.1 % Mean Corpuscular Volume 89.2 fL Mean Corpuscular Hemoglobin 27.7 pg Mean Corpuscular Hemoglobin Concent 31.0 g/dl Platelet Count 216 K/uL Mean Platelet Volume 10.8 fL Neutrophils (%) (Auto) 74.3 % Lymphocytes (%) (Auto) 14.3 % Monocytes (%) (Auto) 9.0 % Eosinophils (%) (Auto) 1.4 % Basophils (%) (Auto) 0.3 % Neutrophils # (Auto) 5.17 K/uL Lymphocytes # (Auto) 1.00 K/uL Monocytes # (Auto) 0.63 K/uL Eosinophils # (Auto) 0.10 K/uL Basophils # (Auto) 0.02 K/uL RDW Standard Deviation 44.4 fL RDW Coefficient of Variation 13.6 % Immature Granulocyte % (Auto) 0.7 % Immature Granulocyte # (Auto) 0.05 K/uL Prothrombin Time 16.5 SECONDS Prothromb Time International Ratio 1.5 Activated Partial Thromboplast Time 31.7 SECONDS Partial Thromboplastin Ratio 1.2 Sodium Level 140 mmol/L Potassium Level 3.8 mmol/L Chloride Level 108 mmol/L Carbon Dioxide Level 24 mmol/L Anion Gap 8.0 mmol/L Blood Urea Nitrogen 13 mg/dl Creatinine 1.40 mg/dl Est Creatinine Clear Calc Drug Dose 33.7 ml/min Estimated GFR () 41.0 Estimated GFR (Non- 35.4 BUN/Creatinine Ratio 9.3 Random Glucose 204 mg/dl Calcium Level 9.3 mg/dl Total Bilirubin 0.9 mg/dl Direct Bilirubin 0.2 mg/dl Aspartate Amino Transf (AST/SGOT) 14 U/L Alanine Aminotransferase (ALT/SGPT) 22 U/L Alkaline Phosphatase 71 U/L Total Creatine Kinase 104 U/L Creatine Kinase MB 1.5 ng/ml Troponin I 0.121 ng/ml Total Protein 7.5 gm/dl Albumin 3.8 gm/dl Lipase 170 U/L Thyroid Stimulating Hormone (TSH) 1.520 uIu/ml Digoxin Level 0.5 ng/ml Urine Color YELLOW Urine Appearance CLEAR Urine pH >= 9.0 Urine Specific [place] 1.018 Urine Protein NEG Urine Glucose (UA) 2+ Urine Ketones NEG Urine Occult Blood NEG Urine Nitrite NEG Urine Bilirubin NEG Urine Urobilinogen NEG Urine Leukocyte Esterase MODERATE Urine WBC (Auto) >30 /hpf Urine RBC (Auto) 0-4 /hpf Urine Hyaline Casts (Auto) 1-5 /lpf Urine Epithelial Cells (Auto) >30 /lpf Urine Bacteria (Auto) NEG Urine Renal Epithelial Cells /lpf Bedside Glucose 199 mg/dl Test 05/13/17 20:45 05/13/17 20:50 05/14/17 05:22 05/14/17 06:42 Bedside Glucose 178 mg/dl 187 mg/dl Total Creatine Kinase 103 U/L 90 U/L Creatine Kinase MB 1.0 ng/ml 1.4 ng/ml Creatine Kinase MB Ratio 1.0 1.6 Troponin I 0.111 ng/ml 0.098 ng/ml Prothrombin Time 13.9 SECONDS Prothromb Time International Ratio 1.3 Sodium Level 140 mmol/L Potassium Level 4.2 mmol/L Chloride Level 106 mmol/L Carbon Dioxide Level 30 mmol/L Anion Gap 4.0 mmol/L Blood Urea Nitrogen 16 mg/dl Creatinine 1.40 mg/dl Est Creatinine Clear Calc Drug Dose 33.9 ml/min Estimated GFR () 41.0 Estimated GFR (Non- 35.4 BUN/Creatinine Ratio 11.4 Random Glucose 201 mg/dl Calcium Level 8.6 mg/dl Triglycerides Level 235 mg/dl Cholesterol Level 134 mg/dl HDL Cholesterol 28 mg/dl LDL Cholesterol, Calculated 59 mg/dl VLDL Cholesterol, Calculated 47 mg/dl Cholesterol/HDL Ratio 4.8 Vitamin B12 Level 256 pg/mL Date/Time Source Procedure Growth Status 05/13/17 12:07 Urine , Clean Catch Urine Culture Pending Received Other Studies: EKG performed at 06:32 reviewed and demonstrated AF at 60 / minute, poor R-wave progression, slight ST depression lateral limb leads, inverted T-waves V2-6. . Assessment & Plan CORONARY ARTERY DISEASE History coronary artery disease, s/p AR, s/p cardiac cath and PCI in [place]. Presented with vague symptoms- nausea, weakness, no chest pain. Serum troponins slightly elevated- 0.121- 0.111, 0.098. Total CPK's and CPK-MB' s normal. Admission EKG showed AF with old septal infarct, slight ST depression in inferior and lateral leads. Repeat EKG today shows AF, old septal infarct, new anterolateral T-wave inversions. Continue aspirin, metoprolol, nitrates, statin. Consult Cardiology. CHF Records indicate history of both left ventricular systolic + diastolic heart failure. LVEF 35% in 2009. Last echo at [facility] 06/08/16 showed hypokinesis anterior septus, overall LVEF 50-54 %, mild MR, mild TR. Compensated. ATRIAL FIBRILLATION Rate controlled. Continue metoprolol, digoxin, warfarin. INR low- titrate warfarin. ASTHMA Stable. Continue Advair, albuterol. DM TYPE 2 Blood sugars fluctuate at home. Uses 70/30 BID. Did not eat or take insulin the morning of admission. Random blood sugar in ED was 204. Hgb A1C pending. Lantus / NovoLog during hospital stay. FBS today = 187. DYSLIPIDEMIA Total chol = 134, LDL-c = 59, TG = 235. Continue ezetimibe, simvastatin, fenofibrate. DEPRESSION Continue citalopram. MEMORY DIFFICULTIES Possible early dementia. CT head shows small vessel ischemic changes. TSH normal. B 12 = 256. DYSURIA UA showed WBC's. Urine C&S pending. VTE PROPHYLAXIS On warfarin, but INR only 1.3. Titrate warfarin. SQ heparin until INR therapeutic. Ambulate. RESUSCITATION STATUS Full code as noted in admission H&P. DISPOSITION Expected discharge to home. Internal Medicine follow-up with Dr. Cox. Cardiology follow-up with Dr. Knight. . Current Inpatient Medications: Current Inpatient Medications Medications (Trade) Dose Ordered Sig/Jos Route Start Time Stop Time Status Last Admin Dose Admin Acetaminophen (Tylenol Tab) 650 mg Q4H PRN PO 05/13/17 13:30 06/12/17 13:29 05/14/17 00:38 650 MG Nitroglycerin (Nitrostat Tab) 0.4 mg UD PRN SL 05/13/17 13:30 06/12/17 13:29 Albuterol (Ventolin Hfa Inhaler) 2 puffs Q4 PRN INH 05/13/17 14:15 06/12/17 14:14 05/14/17 01:59 2 PUFFS Aspirin (Ecotrin Tab) 81 mg DAILY PO 05/14/17 09:00 06/13/17 08:59 05/14/17 08:04 81 MG Citalopram Hydrobromide (celeXA TAB) 20 mg DAILY PO 05/14/17 09:00 06/13/17 08:59 05/14/17 08:04 20 MG Clopidogrel Bisulfate (plAVix TAB) 75 mg DAILY PO 05/14/17 09:00 06/13/17 08:59 05/14/17 08:04 75 MG Digoxin (Lanoxin Tab) 0.125 mg MoWeFr@1600 PO 05/15/17 16:00 06/14/17 15:59 EZETIMIBE (Zetia Tab) 10 mg QPM PO 05/13/17 21:00 06/12/17 20:59 05/13/17 21:18 10 MG Gabapentin (Neurontin Cap) 300 mg HS PO 05/13/17 21:00 06/12/17 20:59 05/13/17 21:19 300 MG Acetaminophen/ Hydrocodone Bitart ([place] 5/325 Tab) 1 tab Q4H PRN PO 05/13/17 14:15 05/27/17 14:14 05/13/17 21:17 1 TAB Isosorbide Mononitrate (Imdur Ext Rel Tab) 30 mg DAILY PO 05/14/17 09:00 06/13/17 08:59 05/14/17 08:04 30 MG Metoprolol Succinate (Toprol Xl Tab) 75 mg DAILY PO 05/14/17 09:00 06/13/17 08:59 05/14/17 08:03 75 MG Pantoprazole Sodium (Protonix Tab) 40 mg DAILY PO 05/14/17 09:00 06/13/17 08:59 05/14/17 08:03 40 MG Miscellaneous Information (Order Awaiting Action) 1 ea QS N/A 05/13/17 16:00 06/12/17 15:59 Warfarin Sodium (Coumadin Tab) 2 mg DAILY@16 PO 05/14/17 16:00 06/13/17 15:59 Insulin Glargine (Lantus Solostar Pen) 16 units BID SC 05/13/17 21:00 06/12/17 20:59 05/14/17 08:03 16 UNITS Insulin Aspart (novoLOG ASPART) SLIDING SCALE G... ACHS SC 05/13/17 16:15 06/12/17 15:59 05/14/17 08:02 3 UNITS Heparin Sodium (Porcine) (Heparin Sq 5000 Unit/0.5ml) 5,000 unit Q8 SQ 05/13/17 22:00 06/12/17 21:59 05/14/17 05:40 5,000 UNIT Ondansetron HCl (Zofran Inj) 4 mg Q6H PRN IV 05/13/17 14:30 06/12/17 14:29 Levalbuterol (Xopenex 0.63 Mg/ 3 Ml Neb) 0.63 mg Q6H PRN INH 05/13/17 14:30 06/12/17 14:29 Glucose (Glucose 40% Gel) 15-30 GRAMS 15 GRAMS... UD PRN PO 05/13/17 15:00 06/12/17 14:59 Glucose (Glucose Chew Tab) 4-8 Tablets 4 Tabl... UD PRN PO 05/13/17 15:00 06/12/17 14:59 Dextrose (Dextrose 50% 50ML Syringe) 25-50ML OF 50% DW IV FOR... UD PRN IV 05/13/17 15:00 06/12/17 14:59 Glucagon (Glucagon Inj) 1 mg UD PRN SQ 05/13/17 15:00 06/12/17 14:59 Simvastatin (Zocor Tab) 80 mg QPM PO 05/13/17 21:00 06/12/17 20:59 05/13/17 21:18 80 MG Enalaprilat 0.625 mg/Dextrose 25.5 ml @ 100 mls/hr Q6H PRN IV 05/13/17 15:30 06/12/17 15:29 05/13/17 21:19 100 MLS/HR Hydromorphone HCl (Dilaudid Inj) 0.5 mg Q4H PRN IV 05/14/17 01:15 05/28/17 01:14 05/14/17 01:58 0.5 MG
--- NOTE | 2017-05-14 11:30 | Cardiology Consultation ---
Cardiology Consultation Date of Consultation: May 14, 2017 Requesting Physician: rashard Attending Transportation Director: pablito History of Present Illness Patient is a 81 year old female admitted with general weakness and not filling well. Lethargic and feeling like she was in a dream like state. No cardiac symptoms. Blood glucose levels ok. Pt. has chronic afib with rate control. No fever or chills. No SOB or chest pain. History Past Medical History: 1. Atherosclerotic coronary disease, diffuse diabetic status post prior coronary intervention to the left anterior descending, left circumflex, and right coronary arteries. Most recent coronary intervention was to the right coronary artery in November 2014. 2. 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 3. Hypertension. 4. Diabetes mellitus. 5. Chronic renal insufficiency. 6. Hyperlipidemia with low HDL, dyslipidemia. 7. Chronic Atrial Fib Social History: Social History Family and Education Marital Status Number of Children 2 Tobacco Use Never smoked or used smokeless tobacco. Alcohol Use No. Drug Use No. Sexual Activity Not currently sexually active; Male partners. Social Documentation Homemaker Activities of Daily Living Service No Blood Transfusions Yes 2011 after vulvar biopsy at [facility] [place]. 09/13/12 at [facility]. Caffeine Concern Yes Occupational Exposure No Hobby Hazards No Sleep Concern No Stress Concern No Weight Concern Yes Special Diet Yes Back Care No Exercise No Seat Belt Yes Self-Exams Yes Family History: Family History Problem Relation Age of Onset Comments Diabetes Son Heart Disorder Brother Heart Disorder Daughter heart disease, seizure disorder Heart Disorder Father Heart Disorder Mother from a PA Renal Hx Son ESRD s/p dialysis and transplant Stroke Father Past Medical/Surgical History Problem List: Medical Problems: (1) Anemia (2) Anxiety (3) Asthma (4) Carpal tunnel syndrome (5) Chronic kidney disease (CKD), stage III (moderate) (6) Coronary artery disease (7) Depression (8) Depression (9) Diabetes mellitus, type 2 (10) Diastolic CHF, chronic (11) Dyslipidemia (12) GERD (gastroesophageal reflux disease) (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 (14) History of colon cancer (15) History of herpes zoster (16) Nonalcoholic fatty liver disease (17) Obesity, Class III, BMI 40-49.9 (morbid obesity) (18) Osteoarthritis (19) Pulmonary nodules (20) Restless leg syndrome (21) Sleep apnea (22) Systolic CHF, chronic Surgical Problems: (1) Status post radical removal vulva and nodes (2) Status post cardiac catheterization (3) Status post cholecystectomy (4) Status post coronary artery stent placement (5) Status post hysterectomy (6) Status post partial colectomy Review Of Systems General: The patient denies weight change, night sweats, fever, chills. Head: The patient denies headache and prior head trauma. Cardiovascular: The patient denies chest pain or chest discomfort, dyspnea on exertion, palpitations, PND, orthopnea, edema, spontaneous shortness of breath, syncope and near syncope. Pulmonary: The patient denies cough, wheeze, pleurisy, hemoptysis, sputum, and excessive snoring. Gastrointestinal: The patient denies nausea, vomiting, diarrhea, constipation, bloating, hematemesis, hematochezia, and abdominal pain. Skin: The patient denies diaphoresis and rash. Musculoskeletal: The patient denies joint pain, joint swelling, myalgia, back pain, neck pain and prior injuries. Neurological: The patient denies prior stroke and seizures Allergies Coded Allergies: Sulfa Antibiotics (Unverified Allergy, Unknown, HIVES, 06/07/16) Medications Reported Home Medications Medications Dose Route/Sig Max Daily Dose Days Date Category Dose Instructions Proventil Hfa (Albuterol Sulfate) 108 Mcg/Act Aer 2 Puffs INH Q4 PRN 05/13/17 Reported Nitrostat (Nitroglycerin) 0.4 Mg Tab 0.4 Mg UT PRN 05/13/17 Reported Roberts 5MG/325MG (Acetaminophen/Hydrocodone Bitart) Tab 1 Tablet PO Q4H PRN 05/13/17 Reported Advair Hfa 115/21 Mcg (Fluticasone-Salmeterol 115/21 Mcg) 1 Aer Aer 2 Puff INH BID 05/13/17 Reported Warfarin Sodium 2 Mg Tab 0 PO UD 05/13/17 Reported 2 mg Mon, Tues, Wed, Melissa, Sat, Sun 1 mg Fri Celexa (Citalopram Hydrobromide) 20 Mg Tab 20 Mg PO DAILY 05/13/17 Reported Imdur Ext Rel (Isosorbide Mononitrate) 30 Mg Tabcr 30 Mg PO DAILY 05/13/17 Reported Digoxin 0.125 Mg Tab 0.125 Mg PO MWF 05/13/17 Reported Novolin 70/30 (Insulin Human Isoph/Insulin Regular) Susp 34 Units SC QPM 05/13/17 Reported Novolin 70/30 (Insulin Human Isoph/Insulin Regular) Susp 32 Units SC QAM 05/13/17 Reported Plavix (Clopidogrel Bisulfate) 75 Mg Tab 75 Mg PO DAILY 06/07/16 Reported Neurontin (Gabapentin) 300 Mg Cap 300 Mg PO HS 11/27/14 Reported Oscal 500/200 D-3 (Calcium Carbonate-Vitamin D) 1 Tab Tab 1 Tab PO BID 11/27/14 Reported Protonix (Pantoprazole Sodium) 40 Mg Tab 40 Mg PO DAILY 11/27/14 Reported Metoprolol Succinate ER (Metoprolol Succinate) 50 Mg Tabcr 75 Mg PO DAILY 11/27/14 Reported Lasix (Furosemide) 40 Mg Tab 40 Mg PO PRN PRN 11/27/14 Reported Vytorin 10-80 mg (Ezetimibe/Simvastatin) 1 Tab Tab 1 Tab PO QPM 11/27/14 Reported Aspir-81 (Aspirin) 81 Mg Tab 81 Mg PO DAILY 11/27/14 Reported Tricor (Fenofibrate) 160 Mg Tab 160 Mg PO DAILY 11/27/14 Reported Physical Exam Vital Signs (Last 8hrs): Last 8 Hrs Date Time Temp Pulse Resp B/P (MAP) Pulse Ox O2 Delivery O2 Flow Rate FiO2 05/14/17 08:00 Room Air 05/14/17 07:34 78 21 161/82 (108) 95 Room Air 05/14/17 07:31 72 22 127/78 (94) 95 Room Air 05/14/17 07:28 36.4 68 19 151/71 (97) 91 Room Air 05/14/17 04:00 Room Air General Appearance: Alert and Oriented x3. NAD. Head: Normocephalic Atraumatic. Eyes: PERRLA, EOMI, conjunctiva and sclera clear Neck: Supple. No carotid bruits noted. No JVD. No HJD. Respiratory: Breath sounds clear to auscultation bilaterally. No w/r/r. Cardiovascular: Reg rate and rhythm. S1 and S2 noted. No murmurs, rubs, gallops. PMI non displace. Abdomen: Normal bowel sounds, soft nontender. no abdominal bruits. Extremities: No edema, no clubbing or cyanosis. distal pulses 2/4 bilaterally. Neuro: No focal deficits. Psychiatric: Normal affect. Data Last 24 Hours Test 05/13/17 12:07 05/13/17 16:16 05/13/17 20:45 05/13/17 20:50 Urine Color YELLOW Urine Appearance CLEAR Urine pH >= 9.0 Urine Specific [place] 1.018 Urine Protein NEG Urine Glucose (UA) 2+ Urine Ketones NEG Urine Occult Blood NEG Urine Nitrite NEG Urine Bilirubin NEG Urine Urobilinogen NEG Urine Leukocyte Esterase MODERATE Urine WBC (Auto) >30 /hpf Urine RBC (Auto) 0-4 /hpf Urine Hyaline Casts (Auto) 1-5 /lpf Urine Epithelial Cells (Auto) >30 /lpf Urine Bacteria (Auto) NEG Urine Renal Epithelial Cells /lpf Bedside Glucose 199 mg/dl 178 mg/dl Total Creatine Kinase 103 U/L Creatine Kinase MB 1.0 ng/ml Creatine Kinase MB Ratio 1.0 Troponin I 0.111 ng/ml Test 05/14/17 05:22 05/14/17 06:42 Prothrombin Time 13.9 SECONDS Prothromb Time International Ratio 1.3 Sodium Level 140 mmol/L Potassium Level 4.2 mmol/L Chloride Level 106 mmol/L Carbon Dioxide Level 30 mmol/L Anion Gap 4.0 mmol/L Blood Urea Nitrogen 16 mg/dl Creatinine 1.40 mg/dl Est Creatinine Clear Calc Drug Dose 33.9 ml/min Estimated GFR () 41.0 Estimated GFR (Non- 35.4 BUN/Creatinine Ratio 11.4 Random Glucose 201 mg/dl Calcium Level 8.6 mg/dl Total Creatine Kinase 90 U/L Creatine Kinase MB 1.4 ng/ml Creatine Kinase MB Ratio 1.6 Troponin I 0.098 ng/ml Triglycerides Level 235 mg/dl Cholesterol Level 134 mg/dl HDL Cholesterol 28 mg/dl LDL Cholesterol, Calculated 59 mg/dl VLDL Cholesterol, Calculated 47 mg/dl Cholesterol/HDL Ratio 4.8 Vitamin B12 Level 256 pg/mL Bedside Glucose 187 mg/dl Imaging: EKG: Telemetry reviewed: Assessment & Plan 1. Stable CAD with history of multiple coronary interventions 2. Hypertension and diabetes 3. Chronic Atrial Fib 4. Diabetes 5. Lethargy, fatigue and not feeling well Plan: Will await additional labs. Keep on telemetry.
[2017-05-14] MEDS: WARFARIN SOD 2 MG TAB PO SCH (16:38)
[2017-05-14] MEDS: SIMVASTATIN 80 MG TAB PO SCH (20:50)
[2017-05-14] MEDS: EZETIMIBE 10MG TAB PO SCH (20:50)
[2017-05-14] MEDS: GABAPENTIN 300 MG CAP PO SCH (20:51)
[2017-05-14] MEDS ORDERED: WARFARIN SOD 2 MG TAB PO ONE (21:00)
[2017-05-15] VITALS (8 sets, daily range): BP systolic 130–162; BP diastolic 74–93; PULSE 69–91; TEMP 36.6–37; O2SAT 93–97
[2017-05-15 07:05] LABS: INR 1.4 (0.9-1.1)
[2017-05-15 07:47] LABS: ESTIMATED AVERAGE GLUCOSE 169 mg/dl; HA1C FLAG Normal (Normal)
[2017-05-15] MEDS: CITALOPRAM 20 MG TAB PO SCH (08:30)
[2017-05-15] MEDS: CLOPIDOGREL BISULFATE 75 MG TAB PO SCH (08:30)
[2017-05-15] MEDS: ASPIRIN 81 MG ECTAB PO SCH (08:30)
[2017-05-15] MEDS: METOPROLOL SUCC 50MG EXT REL TAB PO SCH (08:30)
[2017-05-15] MEDS: ISOSORBIDE MONONITRATE 30 MG TABCR PO SCH (08:30)
[2017-05-15] MEDS: INSULIN ASPART 100 UNITS/ML 3 ML PEN SC SCH ×4 (08:33→20:33)
[2017-05-15] MEDS: INSULIN GLARGINE SOLOSTAR 100 UNITS/ML 3 ML PEN SC SCH ×2 (08:34→20:33)
[2017-05-15] MEDS: HEPARIN SOD 5000 UNIT/0.5 ML CARP SQ SCH ×2 (08:35→20:34)
[2017-05-15] MEDS: PANTOprazole SOD 40 MG TAB PO SCH (08:35)
--- NOTE | 2017-05-15 09:54 | Cardiology Follow-Up ---
Subjective Subjective Date of Service: May 15, 2017. Pt evaluation today including: conversation w/ patient, conversation w/ family , physical exam, chart review, lab review, review of studies, review of inpatient medication list Problem List Medical Problems: (1) Elevated troponin Status: Acute (2) SOB (shortness of breath) Status: Acute (3) SOB (shortness of breath) Status: Acute (4) Weakness (5) CKD (6) CAD with history of multiple interventions Status: Acute Review of Systems Constitutional: No see HPI, No fever, No chills, No sweats, No weight loss, No weakness, No fatigue, No problem reported Eyes: No see HPI, No worsening of vision, No eye pain, No redness, No discharge , No diplopia, No problem reported ENT: No see HPI, No hearing loss, No unusual epistaxis, No nasal symptoms, No sore throat, No tinnitus, No dental problems, No trouble swallowing, No problem reported Respiratory: No see HPI, No cough, No sputum, No wheezing, No shortness of breath, No dyspnea on exertion, No dyspnea at rest, No hemoptysis, No problem reported Cardiac: No see HPI, No chest pain, No orthopnea, No PND, No edema, No claudication, No palpitations, No problem reported Breast: No see HPI, No breast lump, No change in shape, No nipple discharge, No breast pain, No problem reported Abdomen: No see HPI, No pain, No nausea, No vomiting, No diarrhea, No constipation, No GI bleeding, No problem reported Musculoskeletal: No see HPI, No joint pain, No muscle pain, No swelling, No calf pain, No problem reported Female : No see HPI, No dysuria, No urinary frequency, No hematuria, No incontinence, No abnormal vaginal bleeding, No vaginal discharge, No problem reported Neurologic: No see HPI, No memory loss, No paralysis, No weakness, No numbness/ tingling, No vertigo, No balance problems, No problem reported Psychiatric: No see HPI, No depression symptoms, No anhedonism, No anxiety, No insomnia, No substance abuse, No problem reported Heme: No see HPI, No abnormal bleeding/bruising, No clotting problems, No swollen lymph nodes, No night sweats, No problem reported Endo: No see HPI, No fatigue, No excessive thirst, No excessive urination, No problem reported Skin: No see HPI, No rash, No itch, No new/changing skin lesions, No color change, No bleeding, No problem reported Objective Vital Signs Last Vital Signs Documentation Date Time Temp Pulse Resp B/P (MAP) Pulse Ox O2 Delivery O2 Flow Rate FiO2 05/15/17 07:54 36.6 91 20 142/90 (107) 94 Room Air Physical Exam: ENT: normal ENT inspection Neck: supple, no adenopathy, thyroid normal, no JVD Respiratory/Chest: chest non-tender, lungs clear, normal breath sounds Cardiovascular: regular rate, rhythm, no edema, no gallop, no JVD, no murmur Abdomen: normal bowel sounds, non tender, soft Extremities: normal range of motion, non-tender, no pedal edema Neurologic/Psychiatric: senior center director II-XII nml as tested, no motor/sensory deficits, alert Skin: normal color, warm/dry Lymphatic: no adenopathy Assessment and Plan 1. Stable CAD with history of multiple coronary interventions 2. Hypertension and diabetes 3. Chronic Atrial Fib 4. Diabetes 5. Lethargy, fatigue and not feeling well Plan: Will await additional labs. Keep on telemetry. Will order additional troponin today but feel elevation not due to ACS. Elevation due to CKD? ECHO
[2017-05-15 11:27] LABS: POINT OF CARE PRO-BNP 3631 pg/ml (0-1800)
[2017-05-15] MEDS ORDERED: PERFLUTREN LIPID MICROSPHERE (DEFINITY) IV ONE (14:03)
[2017-05-15] MEDS: WARFARIN SOD 2 MG TAB PO SCH (15:57)
[2017-05-15] MEDS ORDERED: DIGOXIN 0.125 MG TAB PO SCH (16:00)
--- NOTE | 2017-05-15 16:00 | ECHOCARDIOGRAM REPORT ---
*NOTICE TO RECEIVING DEMOCRAT AGENCY This information is strictly Confidential and protected under [place] law. [place] law prohibits you from making any further disclosure of this information unless further disclosure is expressly permitted by the written consent of the person to whom it pertains or is authorized by law. A general authorization for the release of medical or other information is not sufficient for this purpose. Hospital accepts no responsibility if the information is made available to any other person, INCLUDING THE PATIENT. Interpretation Summary * Name: ALMA HOFFMANN Study Date: 05/15/2017 01:32 PM BP: 142/77 mmHg * Patient Location: C.2T\S\S230\S\1 HR: 79 * : 1935 (M/d/yyyy) Gender: Female Height: 61 in * Age: 81 yrs Ethnicity: CA Weight: 211 lb * Ordering Physician: Stu Smalls DO * Performed By: Viky West * * Reason For Study: ISCHEMIC CARDIOMYOPATHY * BSA: 1.9 m2 * The study was technically limited. * -- Conclusions -- * The left ventricle is grossly normal size. * There is moderate to severe apical wall hypokinesis. * Ejection Fraction = 50-55%. * Aortic valve sclerosis moderate, without significant aortic valvular stenosis. Procedure Details * A complete two-dimensional transthoracic echocardiogram was performed (2D, M-mode, Doppler and color flow Doppler). * The study was technically difficult. * There were technical limitations due to patient'sbody habitus * A contrast injection of Definity was performed to improve assessment of LV function. * Contrast was injected into an intravenous site in the left arm. * One vial of Definity ultrasound contrast was diluted in normal saline to a total volume of 10 ml. A total of '4' ml of solution was administered during imaging. * Lot # [id number] of Definity utilized for procedure. * Expiration date 06/30. * The attending nurse who injected the contrast agent was TACHO MEHTA RN. Left Ventricle * The left ventricle is grossly normal size. * Ejection Fraction = 50-55%. * There is moderate to severe apical wall hypokinesis. Right Ventricle * The right ventricle is grossly normal size. * The right ventricular systolic function is normal. Atria * The left atrium is moderately dilated. * The right atrium is moderately dilated. * There is no evidence of atrial septal defect, but resolution does not allow assessment for a patent foramen ovale. Mitral Valve * There is moderate to severe mitral annular calcification. * Significant mitral regurgitation is absent. Tricuspid Valve * The tricuspid valve is not well visualized. * Significant tricuspid regurgitation is absent. Aortic Valve * Aortic valve sclerosis moderate, without significant aortic valvular stenosis. * There is no significant aortic regurgitation. Pulmonic Valve * The pulmonic valve is not well visualized. * There is no significant pulmonary regurgitation. MMode 2D Measurements and Calculations IVSd 1.3 cm IVSs 2.0 cm LVIDd 3.8 cm LVIDs 2.9 cm LVPWd 1.6 cm LVPWs 1.6 cm IVS/LVPW 0.79 FS 25.3 % EDV(Teich) 63.8 ml ESV(Teich) 31.4 ml EF(Teich) 50.7 % EDV(cubed) 56.9 ml ESV(cubed) 23.7 ml EF(cubed) 58.4 % % IVS thick 55.8 % % LVPW thick -0.43 % LV mass(C)d 208.4 grams LV mass(C)dI 107.8 grams/m\S\2 LV mass(C)s 207.0 grams LV mass(C)sI 107.1 grams/m\S\2 CO(Teich) 2.6 l/min CI(Teich) 1.3 l/min/m\S\2 SV(Teich) 32.3 ml SI(Teich) 16.7 ml/m\S\2 CO(cubed) 2.7 l/min CI(cubed) 1.4 l/min/m\S\2 SV(cubed) 33.2 ml SI(cubed) 17.2 ml/m\S\2 ACS 0.71 cm asc Aorta Diam 3.2 cm LVOT diam 1.7 cm LVOT area 2.4 cm\S\2 LVAd ap4 24.0 cm\S\2 LVLd ap4 7.0 cm EDV(MOD-sp4) 67.6 ml LVAs ap4 15.7 cm\S\2 LVLs ap4 6.1 cm ESV(MOD-sp4) 33.7 ml EF(MOD-sp4) 50.1 % LVAd ap2 23.1 cm\S\2 LVLd ap2 6.6 cm EDV(MOD-sp2) 67.1 ml LVAs ap2 16.0 cm\S\2 LVLs ap2 6.7 cm ESV(MOD-sp2) 31.4 ml EF(MOD-sp2) 53.2 % CO(MOD-sp4) 2.7 l/min CI(MOD-sp4) 1.4 l/min/m\S\2 SV(MOD-sp4) 33.9 ml SI(MOD-sp4) 17.5 ml/m\S\2 CO(MOD-sp2) 2.9 l/min CI(MOD-sp2) 1.5 l/min/m\S\2 SV(MOD-sp2) 35.7 ml SI(MOD-sp2) 18.5 ml/m\S\2 Doppler Measurements and Calculations MV E max shelbie 129.4 cm/sec MV A max shelbie 35.6 cm/sec MV E/A 3.6 MV dec time 0.18 sec Ao V2 max 102.4 cm/sec Ao max PG 4.2 mmHg Ao max PG (full) 1.4 mmHg SUJATHA(V,A) 1.9 cm\S\2 SUJATHA(V,D) 1.9 cm\S\2 LV V1 max PG 2.8 mmHg LV V1 max 84.0 cm/sec PA V2 max 55.5 cm/sec PA max PG 1.2 mmHg
[2017-05-15] MEDS ORDERED: POLYETHYLENE (MIRALAX) 17 GM PACK PO SCH (20:00)
[2017-05-15] MEDS: ACETAMINOPHEN 325 MG TAB PO PRN (20:30)
[2017-05-15] MEDS: GABAPENTIN 300 MG CAP PO SCH (20:30)
[2017-05-15] MEDS: EZETIMIBE 10MG TAB PO SCH (20:30)
[2017-05-15] MEDS: SIMVASTATIN 80 MG TAB PO SCH (20:31)
--- NOTE | 2017-05-15 21:25 | Progress Note ---
Medicine Progress Note Date & Time of Visit: May 15, 2017 at 17:20 . Subjective No chest pain. No cough. Dyspnea on exertion at baseline. Nausea resolved. No emesis. No bowel movement today. Ongoing reflection upon past family tragedies. Ongoing bilateral knee pain. Frustrated that she has been advised against having total knee arthroplasties. . Objective Last 8 Hrs Date Time Temp Pulse Resp B/P (MAP) Pulse Ox O2 Delivery O2 Flow Rate FiO2 05/15/17 20:00 97 Room Air 05/15/17 19:41 37.0 79 22 147/80 (102) 97 Room Air 05/15/17 16:00 97 Room Air 05/15/17 15:57 71 05/15/17 15:40 36.8 69 22 162/83 (109) 97 Room Air Physical Exam: General- no distress Neck- no JVD Lungs- clear to auscultation Heart- irregular, no gallop appreciated Abdomen- + BS, soft, nontender Extremities- trace ankle edema, no calf tenderness Neuro- alert, anxious . Laboratory Results: Last 24 Hours Test 05/15/17 05:24 05/15/17 06:34 05/15/17 10:27 05/15/17 11:07 Prothrombin Time 15.0 SECONDS Prothromb Time International Ratio 1.4 Bedside Glucose 171 mg/dl 177 mg/dl Troponin I 0.094 ng/ml Test 05/15/17 16:06 05/15/17 20:01 Bedside Glucose 170 mg/dl 246 mg/dl Assessment & Plan CORONARY ARTERY DISEASE History coronary artery disease, s/p CT, s/p cardiac cath and PCI in [place]. Presented with vague symptoms- nausea, weakness, no chest pain. Serum troponins slightly elevated- 0.121- 0.111, 0.098. Total CPK's and CPK-MB' s normal. Admission EKG showed AF with old septal infarct, slight ST depression in inferior and lateral leads. Repeat EKG 05/14 showed AF, old septal infarct, new anterolateral T-wave inversions. Continue aspirin, metoprolol, nitrates, statin. Cardiology consulted. Echo ordered. CHF Records indicate history of both left ventricular systolic + diastolic heart failure. LVEF 35% in 2009. Last echo at [facility] 06/08/16 showed hypokinesis anterior septus, overall LVEF 50-54 %, mild MR, mild TR. Compensated. ATRIAL FIBRILLATION Rate controlled. Continue metoprolol, digoxin, warfarin. INR 1.4- titrate warfarin. ASTHMA Stable. Continue Advair, albuterol. DM TYPE 2 Blood sugars fluctuate at home. Uses 70/30 BID. Did not eat or take insulin the morning of admission. Random blood sugar in ED was 204. Hgb A1C pending. Lantus / NovoLog during hospital stay. FBS today = 171. DYSLIPIDEMIA Total chol = 134, LDL-c = 59, TG = 235. Continue ezetimibe, simvastatin, fenofibrate. ANXIETY / DEPRESSION Ongoing reflection about passed family tragedies. Psychiatry consultation offered, patient wishes not to pursue. Continue citalopram. MEMORY DIFFICULTIES Possible early dementia. CT head shows small vessel ischemic changes. TSH normal. B 12 = 256. DYSURIA UA showed WBC's, many epithelial cells. Urine C&S grew multiple organisms, probable contaminants. OSTEOARTHRITIS / AMBULATORY DYSFUNCTION Severe bilateral knee pain. Patient has been advised against having total knee arthroplasties. Continue analgesics. Physical Therapy offered, patient declining. VTE PROPHYLAXIS On warfarin, but INR only 1.4. Titrate warfarin. SQ heparin until INR therapeutic. Ambulate. RESUSCITATION STATUS Full code as noted in admission H&P. DISPOSITION Expected discharge to home. Internal Medicine follow-up with Dr. Cox. Cardiology follow-up with Dr. Knight. . Current Inpatient Medications: Current Inpatient Medications Medications (Trade) Dose Ordered Sig/Jso Route Start Time Stop Time Status Last Admin Dose Admin Acetaminophen (Tylenol Tab) 650 mg Q4H PRN PO 05/13/17 13:30 06/12/17 13:29 05/15/17 20:30 650 MG Nitroglycerin (Nitrostat Tab) 0.4 mg UD PRN SL 05/13/17 13:30 06/12/17 13:29 Albuterol (Ventolin Hfa Inhaler) 2 puffs Q4 PRN INH 05/13/17 14:15 06/12/17 14:14 05/14/17 01:59 2 PUFFS Aspirin (Ecotrin Tab) 81 mg DAILY PO 05/14/17 09:00 06/13/17 08:59 05/15/17 08:30 81 MG Citalopram Hydrobromide (celeXA TAB) 20 mg DAILY PO 05/14/17 09:00 06/13/17 08:59 05/15/17 08:30 20 MG Clopidogrel Bisulfate (plAVix TAB) 75 mg DAILY PO 05/14/17 09:00 06/13/17 08:59 05/15/17 08:30 75 MG Digoxin (Lanoxin Tab) 0.125 mg MoWeFr@1600 PO 05/15/17 16:00 06/14/17 15:59 05/15/17 15:57 0.125 MG EZETIMIBE (Zetia Tab) 10 mg QPM PO 05/13/17 21:00 06/12/17 20:59 05/15/17 20:30 10 MG Gabapentin (Neurontin Cap) 300 mg HS PO 05/13/17 21:00 06/12/17 20:59 05/15/17 20:30 300 MG Acetaminophen/ Hydrocodone Bitart ([place] 5/325 Tab) 1 tab Q4H PRN PO 05/13/17 14:15 05/27/17 14:14 05/13/17 21:17 1 TAB Isosorbide Mononitrate (Imdur Ext Rel Tab) 30 mg DAILY PO 05/14/17 09:00 06/13/17 08:59 05/15/17 08:30 30 MG Metoprolol Succinate (Toprol Xl Tab) 75 mg DAILY PO 05/14/17 09:00 06/13/17 08:59 05/15/17 08:30 75 MG Pantoprazole Sodium (Protonix Tab) 40 mg DAILY PO 05/14/17 09:00 06/13/17 08:59 05/15/17 08:35 40 MG Miscellaneous Information (Order Awaiting Action) 1 ea QS N/A 05/13/17 16:00 06/12/17 15:59 Warfarin Sodium (Coumadin Tab) 2 mg DAILY@16 PO 05/14/17 16:00 06/13/17 15:59 05/15/17 15:57 2 MG Insulin Aspart (novoLOG ASPART) SLIDING SCALE G... ACHS SC 05/13/17 16:15 06/12/17 15:59 05/15/17 20:33 3 UNITS Ondansetron HCl (Zofran Inj) 4 mg Q6H PRN IV 05/13/17 14:30 06/12/17 14:29 Levalbuterol (Xopenex 0.63 Mg/ 3 Ml Neb) 0.63 mg Q6H PRN INH 05/13/17 14:30 06/12/17 14:29 Glucose (Glucose 40% Gel) 15-30 GRAMS 15 GRAMS... UD PRN PO 05/13/17 15:00 06/12/17 14:59 Glucose (Glucose Chew Tab) 4-8 Tablets 4 Tabl... UD PRN PO 05/13/17 15:00 06/12/17 14:59 Dextrose (Dextrose 50% 50ML Syringe) 25-50ML OF 50% DW IV FOR... UD PRN IV 05/13/17 15:00 06/12/17 14:59 Glucagon (Glucagon Inj) 1 mg UD PRN SQ 05/13/17 15:00 06/12/17 14:59 Simvastatin (Zocor Tab) 80 mg QPM PO 05/13/17 21:00 06/12/17 20:59 05/15/17 20:31 80 MG Enalaprilat 0.625 mg/Dextrose 25.5 ml @ 100 mls/hr Q6H PRN IV 05/13/17 15:30 06/12/17 15:29 05/13/17 21:19 100 MLS/HR Hydromorphone HCl (Dilaudid Inj) 0.5 mg Q4H PRN IV 05/14/17 01:15 05/28/17 01:14 05/14/17 01:58 0.5 MG Heparin Sodium (Porcine) (Heparin Sq 5000 Unit/0.5ml) 5,000 unit Q12 SQ 05/14/17 21:00 06/13/17 20:59 05/15/17 20:34 5,000 UNIT Insulin Glargine (Lantus Solostar Pen) 20 units BID SC 05/14/17 21:00 06/12/17 20:59 05/15/17 20:33 20 UNITS Polyethylene (Miralax Powder Packet) 17 gm TODAY@2000 PO 05/15/17 20:00 05/15/17 22:00 05/15/17 20:39 17 GM
[2017-05-16] VITALS (8 sets, daily range): BP systolic 136–171; BP diastolic 82–103; PULSE 68–79; TEMP 36.3–36.8; O2SAT 94–97
[2017-05-16 05:56] LABS: MEAN CORPUSCULAR HEMOGLOBIN 28.8 pg (25-34); MEAN CORPUSCULAR HGB CONC 32.4 g/dl (32-36); PLATELET COUNT 187 K/uL (130-400); RED BLOOD COUNT 4.72 M/uL (4.2-5.4); WHITE BLOOD COUNT 4.77 K/uL (4.8-10.8)
[2017-05-16 06:03] LABS: INR 1.7 (0.9-1.1); PROTHROMBIN TIME (PATIENT) 18.5 SECONDS (9.0-12.0)
[2017-05-16 06:31] LABS: CALCIUM 8.6 mg/dl (8.5-10.1); CREATININE 1.3 mg/dl (0.60-1.20); POTASSIUM 3.9 mmol/L (3.5-5.1)
[2017-05-16] MEDS: CITALOPRAM 20 MG TAB PO SCH (07:55)
[2017-05-16] MEDS: METOPROLOL SUCC 50MG EXT REL TAB PO SCH (07:55)
[2017-05-16] MEDS: ASPIRIN 81 MG ECTAB PO SCH (07:55)
[2017-05-16] MEDS: CLOPIDOGREL BISULFATE 75 MG TAB PO SCH (07:55)
[2017-05-16] MEDS: ISOSORBIDE MONONITRATE 30 MG TABCR PO SCH (07:56)
[2017-05-16] MEDS: PANTOprazole SOD 40 MG TAB PO SCH (07:58)
[2017-05-16] MEDS: INSULIN ASPART 100 UNITS/ML 3 ML PEN SC SCH ×3 (08:01→17:03)
[2017-05-16] MEDS: HEPARIN SOD 5000 UNIT/0.5 ML CARP SQ SCH (08:02)
[2017-05-16] MEDS ORDERED: INSULIN GLARGINE SOLOSTAR 100 UNITS/ML 3 ML PEN SC SCH (09:00)
[2017-05-16] MEDS ORDERED: CYANOCOBALAMIN 1000 MCG/ML VIAL IM ONE (12:30)
--- NOTE | 2017-05-16 12:30 | Progress Note ---
Internal Med Progress Note Date of Service: May 16, 2017. Provider Documentation: SUBJECTIVE: Patient is sitting in her bed in no apparent distress. Denies any chest pain/ pressure. Breathing comfortably. Tries to walk but pain in the knees restricts her ambulation. Mood has been bit depressed due to being unable to walk. OBJECTIVE: Vital Signs-as noted below Examination: Physical Exam: General- Alert/Awake, In no apparent distress HEENT: Normocephalic, Eyes, ears , Nose & Throat are normal looking Neck- Supple, Midline trachea. no JVD Lungs- B/L clear to auscultation Heart- irregular, no gallop appreciated Abdomen- Soft, Non-tender, + BS Extremities- trace ankle edema, no calf tenderness Neuro- alert, Little anxious Lab data as noted below. ASSESSMENT & PLAN: Echocardiogram () The left ventricle is grossly normal size. There is moderate to severe apical wall hypokinesis. Ejection Fraction = 50-55%. Aortic valve sclerosis moderate, without significant aortic valvular stenosis. Elevated Troponin with History CAD: History coronary artery disease, s/p [place], s/ p cardiac cath and PCI in [place]. Presented with vague symptoms- nausea, weakness, no chest pain. -Serum Troponin slightly elevated- 0.121- 0.111, 0.098. Total CPK's and CPK- MB's normal. -Admission EKG showed AF with old septal infarct, slight ST depression in inferior and lateral leads. -Repeat EKG 05/14 showed AF, old septal infarct, new anterolateral T-wave inversions. -Continue aspirin, metoprolol, nitrates, statin. -Cardiology consult reviewed. Elevated Troponin likely due to CKD Echocardiogram findings reviewed. History of Biventricular CHF: Records indicate history of both left ventricular systolic + diastolic heart failure. LVEF 35% in 2009.Compensated. Last echo at [facility] 06/08/16 showed hypokinesis anterior septus, overall LVEF 50-54 %, mild MR, mild TR. History Atrial Fibrillation: Rate controlled. -Continue metoprolol, digoxin, warfarin. -INR 1.7- titrate warfarin. Diabetes Type II: Blood sugars fluctuate at home.Uses 70/30 BID. Did not eat or take insulin the morning of admission.Random blood sugar in ED was 204. -Hgb A1C is 7.5. -Lantus / NovoLog during hospital stay. -FBS today = 158. Dysuria: UA showed WBC's, many epithelial cells. -Urine C&S grew multiple organisms, probable contaminants. Dyslipidemia: Total chol = 134, LDL-c = 59, TG = 235. -Continue ezetimibe, simvastatin, fenofibrate. History Bronchial Asthma: Stable. -Continue Advair, albuterol. History Anxiety/Depression: Ongoing reflection about passed family tragedies. -Psychiatry consultation offered, patient wishes not to pursue. -Continue citalopram. Memory Difficulties: Possible early dementia. -CT head shows small vessel ischemic changes. -TSH normal. -B 12 = 256.Ordered B12 1000mcg X one dose I/M. Chronic Osteoarthritis & Ambulatory Dysfunction: Severe bilateral knee pain. Patient has been advised against having total knee arthroplasties. -Continue analgesics. -Physical Therapy offered, patient declining. VTE Prophylaxis:On warfarin, but INR only 1.7.Titrate warfarin. SQ heparin until INR therapeutic.Ambulate as tolerated. Resuscitation Status: Full code as noted in admission H&P. Disposition: Expected discharge to home.Need Cardiology Clearance. Internal Medicine follow-up with Dr. Cox. Cardiology follow-up with Dr. Knight. Vital Signs: Date Time Temp Pulse Resp B/P (MAP) Pulse Ox O2 Delivery O2 Flow Rate FiO2 05/16/17 12:13 36.6 79 18 155/88 (110) 96 Room Air 05/16/17 12:10 Room Air 05/16/17 08:15 Room Air 05/16/17 07:35 36.8 68 18 171/88 (115) 95 Room Air 05/16/17 04:00 97 Room Air 05/16/17 04:00 36.3 74 20 163/82 (109) 97 Room Air 05/16/17 00:50 136/84 (101) 05/16/17 00:13 36.4 74 21 170/103 (125) 96 Room Air 05/16/17 00:00 96 Room Air 05/15/17 20:00 97 Room Air 05/15/17 19:41 37.0 79 22 147/80 (102) 97 Room Air 05/15/17 16:00 97 Room Air 05/15/17 15:57 71 05/15/17 15:40 36.8 69 22 162/83 (109) 97 Room Air Lab Results: Results Past 24 Hours Test 05/15/17 16:06 05/15/17 20:01 05/16/17 05:37 05/16/17 06:44 Range/Units Bedside Glucose 170 246 164 70-90 mg/dl White Blood Count 4.77 4.8-10.8 K/uL Red Blood Count 4.72 4.2-5.4 M/uL Hemoglobin 13.6 12.0-16.0 g/dL Hematocrit 42.0 37-47 % Mean Corpuscular Volume 89.0 80-100 fL Mean Corpuscular Hemoglobin 28.8 25-34 pg Mean Corpuscular Hemoglobin Concent 32.4 32-36 g/dl RDW Standard Deviation 44.5 36.4-46.3 fL RDW Coefficient of Variation 13.7 11.5-14.5 % Platelet Count 187 130-400 K/uL Mean Platelet Volume 11.0 7.4-10.4 fL Prothrombin Time 18.5 9.0-12.0 SECONDS Prothromb Time International Ratio 1.7 0.9-1.1 Sodium Level 139 136-145 mmol/L Potassium Level 3.9 3.5-5.1 mmol/L Chloride Level 107 98-107 mmol/L Carbon Dioxide Level 24 21-32 mmol/L Anion Gap 8.0 3-11 mmol/L Blood Urea Nitrogen 21 7-18 mg/dl Creatinine 1.30 0.60-1.20 mg/dl Est Creatinine Clear Calc Drug Dose 36.2 ml/min Estimated GFR () 44.9 Estimated GFR (Non- 38.7 BUN/Creatinine Ratio 16.0 10-20 Random Glucose 159 70-99 mg/dl Calcium Level 8.6 8.5-10.1 mg/dl Test 05/16/17 11:00 Range/Units Bedside Glucose 158 70-90 mg/dl
--- NOTE | 2017-05-16 12:41 | Cardiology Follow-Up ---
Subjective General Date of Service: May 16, 2017. Chief Complaint: follow-up history of ischemic heart disease, presentation with generalized Pt evaluation today including: conversation w/ patient, conversation w/ family , physical exam History of Present Illness The patient is a 81 year old female seen in cardiology follow-up with initial consultation having been performed by Dr. Smalls of our practice. Patient states that she feels improved. She notes just feeling generally "sick " on admission without any alyce angina. She's had multiple elevated blood pressure readings and received a dose of IV enalapril on 05/13/17. She denies any angina. She cannot walk very far at baseline due to progressive osteoarthritis of her knee. Allergies Coded Allergies: Sulfa Antibiotics (Unverified Allergy, Unknown, HIVES, 06/07/16) Social History Smoking Status: Never Smoker Hx Alcohol Use - Type And Amou: Yes (OCC WINE ) Hx Substance Use - Type And Am: No Problem List Medical Problems: (1) Elevated troponin Status: Acute (2) SOB (shortness of breath) Status: Acute (3) SOB (shortness of breath) Status: Acute (4) Weakness Status: Acute Physical Exam Vital Signs Last Vital Signs Documentation Date Time Temp Pulse Resp B/P (MAP) Pulse Ox O2 Delivery O2 Flow Rate FiO2 05/16/17 12:13 36.6 79 18 155/88 (110) 96 Room Air Physical Exam Constitutional: Level of Distress: NAD, chronically ill Lungs: Auscultation: no wheezing, no rales/crackles, no rhonchi Cardiovascular: Heart Auscultation: normal S2, irregular rate rhythm Extremities: no edema Assessment and Plan Assessment and Plan Impression: 81-year-old female 1. Admitted with generalized feelings of feeling poorly, but no alyce angina, she is not volume overloaded on physical exam 2. Chronic coronary artery disease with history of PCI to the LAD circumflex and RCA, however most recent coronary intervention took place in November 2014 at [facility] with drug-eluting stent placed in the mid RCA at that time, she had known residual ostial stenosis of the LAD in the range of 75% to 90% diagonal stenosis which of been treated medically 3. Chronic atrial fibrillation 4. She is on chronic therapy with aspirin, clopidogrel, plus Coumadin due to her CAD, multivessel PCI, and chronic atrial fibrillation 5. Stage III-IV chronic kidney disease, recent outpatient labs showed that her creatinine had gone up to 2.3, down to 1.3 during this admission 6. Hypertension Plan: Echocardiogram revealed stable findings of apical wall motion abnormality and normal LVEF. Her BP is elevated, and has a history of this. Suspect her mild troponin elevation is due to HTN , renal insufficiency , not due to ACS. Her chronic AF is rate controlled. Her lisinopril 2.5 mg , was discontinued at time of her 04/03/17 nephrology visit. Her BP was well controlled at that time, and her creatinine was higher than now. Her potassium levels have been OK. Would add back low dose lisinopril for her HTN. Stable from my standpoint for discharge. Laboratory Results Last 24 Hours Test 05/15/17 16:06 05/15/17 20:01 05/16/17 05:37 05/16/17 06:44 Bedside Glucose 170 mg/dl 246 mg/dl 164 mg/dl White Blood Count 4.77 K/uL Red Blood Count 4.72 M/uL Hemoglobin 13.6 g/dL Hematocrit 42.0 % Mean Corpuscular Volume 89.0 fL Mean Corpuscular Hemoglobin 28.8 pg Mean Corpuscular Hemoglobin Concent 32.4 g/dl RDW Standard Deviation 44.5 fL RDW Coefficient of Variation 13.7 % Platelet Count 187 K/uL Mean Platelet Volume 11.0 fL Prothrombin Time 18.5 SECONDS Prothromb Time International Ratio 1.7 Sodium Level 139 mmol/L Potassium Level 3.9 mmol/L Chloride Level 107 mmol/L Carbon Dioxide Level 24 mmol/L Anion Gap 8.0 mmol/L Blood Urea Nitrogen 21 mg/dl Creatinine 1.30 mg/dl Est Creatinine Clear Calc Drug Dose 36.2 ml/min Estimated GFR () 44.9 Estimated GFR (Non- 38.7 BUN/Creatinine Ratio 16.0 Random Glucose 159 mg/dl Calcium Level 8.6 mg/dl Test 05/16/17 11:00 Bedside Glucose 158 mg/dl
[2017-05-16] MEDS ORDERED: LISINOPRIL 2.5 MG TAB PO ONE (12:45)
[2017-05-16] MEDS: WARFARIN SOD 2 MG TAB PO SCH (15:38)
[2017-05-16] MEDS ORDERED: LSN25 PO (15:43)
[2017-05-16] MEDS ORDERED: SNK PO (15:43)
--- NOTE | 2017-05-16 15:45 | Discharge Instructions ---
Discharge Instructions Date of Service May 16, 2017. Admission Reason for Admission: Coronary Artery Disease,Elevated Troponin Discharge Discharge Diagnosis / Problem: Elevated Troponin, Stable CAD Discharge Goals Goal(s): Decrease discomfort, Improve function, Increase independence, Improve disease control, Improve nutritional status, Learn about illness, Diagnostic testing, Prevent Disease Progression Activity Recommendations Activity Limitations: resume your previous activity (As Tolerated) Lifting Limitations: no more than 5 pounds Exercise/Sports Limitations: as tolerated Shower/Bathe: no limitations Driving or Machine Use: Do not drive indepemdently . Instructions / Follow-Up Instructions / Follow-Up Follow up with PCP in 3-5 days after discharge Current Hospital Diet Patient's current hospital diet: AHA Diet (Heart Healthy), Diabetes Type 2 Diet Discharge Diet Recommended Diet: AHA Diet (Heart Healthy), Diabetes Type 2 Diet Fluid Restriction: 1800 ml (7 cups) Pending Studies Studies pending at discharge: no Laboratory Results Hemoglobin A1c Test 05/14/17 05:22 Range/Units Estimated Average Glucose 169 mg/dl Hemoglobin A1c 7.5 H 4.5-5.6 % Lipid Panel Test 05/14/17 05:22 Range/Units Triglycerides Level 235 H 0-150 mg/dl Cholesterol Level 134 0-200 mg/dl HDL Cholesterol 28 mg/dl Cholesterol/HDL Ratio 4.8 LDL Cholesterol, Calculated 59 mg/dl Medical Emergencies . Who to Call and When: Medical Emergencies: If at any time you feel your situation is an emergency, please call 911 immediately. . Non-Emergent Contact Non-Emergency issues call your: Primary Care Provider . . "Provider Documentation" section prepared by Vinod Leija. . VTE Core Measure Inpt VTE Proph given/why not?: Unfractionated heparin SQ, Warfarin (Coumadin)
--- NOTE | 2017-05-16 15:48 | Discharge Summary ---
Discharge Summary Date of Service May 16, 2017. Discharge Summary Admission Date: May 13, 2017 at 13:23 Discharge Date: May 16, 2017 Discharge Disposition: Home Principal Diagnosis: Elevate Troponin Stable CAD Secondary Diagnoses/Problems: Stable Biventricular CHF Atrial Fibrillation Diabetes Type II Dyslipidemia Bronchial Asthma Anxiety/Depression Chronic DJD Procedures: NONE Vaccinations: NONE Consultations: Cardiology Medication Reconciliation New Medications: Lisinopril (Lisinopril) 2.5 Mg Tab 2.5 MG PO QAM for 30 Days, #30 TAB Senna (Senna Lax) 8.6 Mg Tab 8.6 MG PO QAM PRN for Constipation, #30 TAB Continued Medications: Albuterol Sulfate (Proventil Hfa) 108 Mcg/Act Aer 2 PUFFS INH Q4 PRN for Wheezing Aspirin (Aspir-81) 81 Mg Tab 81 MG PO DAILY Calcium Carbonate-Vitamin D (Oscal 500/200 D-3) 1 Tab Tab 1 TAB PO BID Citalopram Hydrobromide (Celexa) 20 Mg Tab 20 MG PO DAILY Clopidogrel (Plavix) 75 Mg Tab 75 MG PO DAILY, TAB Digoxin (Digoxin) 0.125 Mg Tab 0.125 MG PO MWF Ezetimibe/Simvastatin (Vytorin 10-80 mg) 1 Tab Tab 1 TAB PO QPM Fenofibrate (Tricor) 160 Mg Tab 160 MG PO DAILY, TAB Fluticasone-Salmeterol 115/21 Mcg (Advair Hfa 115/21 Mcg) 1 Aer Aer 2 PUFF INH BID, AER Furosemide (Lasix) 40 Mg Tab 40 MG PO PRN PRN for fluid retention, TAB Gabapentin (Neurontin) 300 Mg Cap 300 MG PO HS, CAP Hydrocodone/Acetaminophen 5MG/325MG ([place] 5MG/325MG) Tab 1 TABLET PO Q4H PRN for Pain, TAB Insulin Isophan/Regular (Novolin 70/30) Susp 32 UNITS SC QAM Insulin Isophan/Regular (Novolin 70/30) Susp 34 UNITS SC QPM Isosorbide Mononitrate Ext Rel (Imdur Ext Rel) 30 Mg Tabcr 30 MG PO DAILY Metoprolol Succinate (Metoprolol Succinate ER) 50 Mg Tabcr 75 MG PO DAILY Nitroglycerin (Nitrostat) 0.4 Mg Tab 0.4 MG UT PRN, BTL Pantoprazole Sodium (Protonix) 40 Mg Tab 40 MG PO DAILY, TAB Warfarin Sodium (Warfarin Sodium) 2 Mg Tab 0 PO UD, TAB 2 mg Mon, Tues, Wed, Melissa, Sat, Sun 1 mg Fri Admission Information HPI (per Admitting provider): 81-year-old female followed by Dr. Cox. History of ischemic heart disease, CHF, chronic atrial fibrillation, asthma, diabetes, and other problems noted below. Did not feel well last night or this morning. She has been experiencing nausea and weakness. No fever. No chest pain. No cough. Chronic dyspnea on exertion unchanged. No abdominal pain, vomiting, diarrhea, melena, hematochezia. No urinary symptoms. No headache or focal neurologic symptoms. Did not take any of her medications this morning. Blood sugar at home was around 200 at 8 a.m. . Physical Exam (per Admitting): General Appearance: WD/WN, no apparent distress, + obese Head: normocephalic, atraumatic Eyes: normal inspection, PERRL, EOMI, sclerae normal, + pertinent finding ( conjunctivae pink) ENT: hearing grossly normal, pharynx normal Neck: supple, no adenopathy, thyroid normal, no JVD, trachea midline Respiratory/Chest: lungs clear, no respiratory distress, no accessory muscle use Cardiovascular: regular rate, rhythm, no edema, no gallop, no JVD, no murmur , + pertinent finding (DP pulses palpable; PT pulses not palpable; capillary refill toes 2 sec) Abdomen/GI: normal bowel sounds, non tender, soft, no organomegaly Extremities/Musculoskelatal: no calf tenderness, no pedal edema, + pertinent finding (degenerative changes knees) Neurologic/Psych: hand knitter II-XII nml as tested (PERRL, EOMI, no dysarthria, no facial palsy), no motor/sensory deficits (motor strength upper and lower extremties 4+/5 bilat), normal reflexes (plantar reflexes downgoing), + disoriented (oriented to person and place, not date; can name current but not past president; can name months forward, but not backward) Skin: normal color, warm/dry, no rash Lymphatic: no adenopathy (cervical) Hospital Course Echocardiogram () The left ventricle is grossly normal size. There is moderate to severe apical wall hypokinesis. Ejection Fraction = 50-55%. Aortic valve sclerosis moderate, without significant aortic valvular stenosis. Elevated Troponin with History CAD: History coronary artery disease, s/p [place], s/ p cardiac cath and PCI in [place]. Presented with vague symptoms- nausea, weakness, no chest pain. -Serum Troponin slightly elevated- 0.121- 0.111, 0.098. Total CPK's and CPK- MB's normal. -Admission EKG showed AF with old septal infarct, slight ST depression in inferior and lateral leads. -Repeat EKG 05/14 showed AF, old septal infarct, new anterolateral T-wave inversions. -Continue aspirin, metoprolol, nitrates, statin. -Cardiology consult reviewed. Elevated Troponin likely due to CKD Echocardiogram findings reviewed. History of Biventricular CHF: Records indicate history of both left ventricular systolic + diastolic heart failure. LVEF 35% in 2009.Compensated. Last echo at [facility] 06/08/16 showed hypokinesis anterior septus, overall LVEF 50-54 %, mild MR, mild TR. History Atrial Fibrillation: Rate controlled. -Continue metoprolol, digoxin, warfarin. -INR 1.7- titrate warfarin. Diabetes Type II: Blood sugars fluctuate at home.Uses 70/30 BID. Did not eat or take insulin the morning of admission.Random blood sugar in ED was 204. -Hgb A1C is 7.5. -Lantus / NovoLog during hospital stay. -FBS today = 158. Dysuria: UA showed WBC's, many epithelial cells. -Urine C&S grew multiple organisms, probable contaminants. Dyslipidemia: Total chol = 134, LDL-c = 59, TG = 235. -Continue ezetimibe, simvastatin, fenofibrate. History Bronchial Asthma: Stable. -Continue Advair, albuterol. History Anxiety/Depression: Ongoing reflection about passed family tragedies. -Psychiatry consultation offered, patient wishes not to pursue. -Continue citalopram. Memory Difficulties: Possible early dementia. -CT head shows small vessel ischemic changes. -TSH normal. -B 12 = 256.Ordered B12 1000mcg X one dose I/M. Chronic Osteoarthritis & Ambulatory Dysfunction: Severe bilateral knee pain. Patient has been advised against having total knee arthroplasties. -Continue analgesics. -Physical Therapy offered, patient declining. VTE Prophylaxis:On warfarin, but INR only 1.7.Titrate warfarin. SQ heparin until INR therapeutic.Ambulate as tolerated. Resuscitation Status: Full code as noted in admission H&P. Disposition: Expected discharge to home.Need Cardiology Clearance. Internal Medicine follow-up with Dr. Cox. Cardiology follow-up with Dr. Knight. Total time spent on discharge = 42 minutes This includes examination of the patient, discharge planning, medication reconciliation, and communication with other providers. Discharge Instructions Activity Recommendations Activity Limitations: resume your previous activity (As Tolerated) Lifting Limitations: no more than 5 pounds Exercise/Sports Limitations: as tolerated Shower/Bathe: no limitations Driving or Machine Use: Do not drive independently . Instructions / Follow-Up Instructions / Follow-Up Follow up with PCP in 3-5 days after discharge Current Hospital Diet Patient's current hospital diet: AHA Diet (Heart Healthy), Diabetes Type 2 Diet Discharge Diet Recommended Diet: AHA Diet (Heart Healthy), Diabetes Type 2 Diet Fluid Restriction: 1800 ml (7 cups) Additional Copies To Dipika Cox M.D.
[2017-05-16] MEDS ORDERED: HYDROCODONE/ACETAMOPHEN 5/325MG TAB PO PRN (18:00)
[2017-05-17] MEDS ORDERED: SENNA 8.6 MG TAB PO SCH (09:00)
[2017-05-17] MEDS ORDERED: LISINOPRIL 2.5 MG TAB PO SCH (09:00)
== END 2017-05-16 17:35 | disposition home or self-care (01) | DRG 303 ==
LOC: C.EDB 10:39 → C.2T 13:23 → ENRESERV 13:47
PROVIDERS: ADMIT Hospitalist; ATTEND Emergency Medicine
DX: I25.10 Atherosclerotic heart disease of native coronary artery without angina pectoris (principal); I50.40 Unspecified combined systolic (congestive) and diastolic (congestive) heart failure; F32.9 Major depressive disorder, single episode, unspecified; E11.9 Type 2 diabetes mellitus without complications; F41.9 Anxiety disorder, unspecified; J45.909 Unspecified asthma, uncomplicated; N18.3 Chronic kidney disease, stage 3 (moderate); K21.9 Gastro-esophageal reflux disease without esophagitis; E66.01 Morbid (severe) obesity due to excess calories; G47.30 Sleep apnea, unspecified; Z79.82 Long term (current) use of aspirin; Z79.4 Long term (current) use of insulin

== ENCOUNTER 2020-01-12 15:15 | Inpatient (IN) ==
[2020-01-12] MEDS ORDERED: ALBUT/IPRATROP 3MG/0.5MG NEB 3 ML VIAL NEB STA (15:56)
[2020-01-12 16:06] LABS: Basophils # (auto) 0.01 K/uL (0-0.2); Basophils % (auto) 0.2 %; Eosinophils # (auto) 0.08 K/uL (0-0.5); Eosinophils % (auto) 1.2 %; Hematocrit (blood only) 48.7 % (37-47); Hemoglobin 15.9 g/dL (12.0-16.0); Immature Granulocytes # (auto) 0.03 K/uL (0.00-0.02); Immature Granulocytes % (auto) 0.5 %; Lymphocytes # (auto) 1.17 K/uL (1.2-3.4); Lymphocytes % (auto) 17.7 %; Mean Corpuscular Hemoglobin 30.1 pg (25-34); Mean Corpuscular Hgb Conc 32.6 g/dL (32-36); Mean Corpuscular Volume 92.1 fL (80-100); Mean Platelet Volume 12.3 fL (7.4-10.4); Monocytes % (auto) 9.1 %; Neutrophils # (auto) 4.72 K/uL (1.4-6.5); Neutrophils % (auto) 71.3 %; Platelet Count 163 K/uL (130-400); RDW Coefficient of Variation 14.4 % (11.5-14.5); RDW Standard Deviation 48.3 fL (36.4-46.3); Red Blood Count 5.29 M/uL (4.2-5.4); White Blood Count 6.61 K/uL (4.8-10.8)
[2020-01-12 16:13] LABS: BUN Creatinine Ratio 12.4 (10-20); Blood Urea Nitrogen 19 mg/dl (7-18); Calcium 8.9 mg/dl (8.5-10.1); Carbon Dioxide 25 mmol/L (21-32); Chloride 104 mmol/L (98-107); Est GFR (African American) 35.5; Est GFR (Non-African American) 30.6; Glucose 181 mg/dl (70-99); Lipase 210 U/L (73-393); Potassium 4.3 mmol/L (3.5-5.1); Sodium 138 mmol/L (136-145)
--- NOTE | 2020-01-12 16:14 | XRay Report ---
XR chest 1V portable HISTORY: Atypical chest pain. COMPARISON: Chest 05/22/2019. FINDINGS: No pneumothorax. No pleural effusions. The heart remains mildly enlarged. No evidence for p ulmonary edema. Linear density within the right lung base consistent with subsegmental atelectasis. T he lungs are otherwise clear. IMPRESSION: Stable mild cardiomegaly. ACT 112: Negative or not required by law. Electronically signed by: Nestor Pineda M.D. 01/12/2020 4:12 PM
[2020-01-12 16:24] LABS: NT Pro B Type Natriuretic Pept 1182 pg/ml (0-1800); Troponin I 0.164 ng/ml (0-0.045)
[2020-01-12 16:26] LABS: Base Excess VBG 1.2 mEq/L; Oxygen Saturation VBG 70.5 %; pH VBG 7.46 (7.36-7.41)
[2020-01-12] MEDS ORDERED: ASPIRIN CHEW 324 MG PO STA (17:05)
[2020-01-12] MEDS ORDERED: NITROGLYCERIN SL 0.4 MG/TAB TAB SL PRN ×2 (18:06→20:18)
[2020-01-12] MEDS ORDERED: ACETAMINOPHEN 325 MG TAB PO PRN (18:06)
[2020-01-12] MEDS ORDERED: MoRPHine SULFATE 2 MG/ML CARP IV PRN (18:06)
[2020-01-12] MEDS ORDERED: POLYETHYLENE (MIRALAX) 17 GM PACK PO PRN (18:06)
[2020-01-12 18:21] LABS: INR 1.6 (0.9-1.1); Partial Thromboplastin Ratio 1.1; Partial Thromboplastin Time 30.1 Seconds (21.0-31.0); Prothrombin Time 16.2 Seconds (9.0-12.0)
--- NOTE | 2020-01-12 18:26 | History & Physical Report ---
Date of Service January 12, 2020 Assessment & Plan (1) Chest pain: (2) Coronary artery disease: (3) Elevated troponin: 84 year-old female, with history of CAD, status post prior coronary intervention to the LAD, left circumflex, RCA, history of A. fib on Coumadin, diastolic CHF/chronic, diabetes mellitus type 2, hypertension, hyperlipidemia, dementia who presents with chest pain. Pt presents w/ hx of left sided chest pain at rest earlier today, now resolved - trop elevated (in setting of CKD), cont. to trend - Afib on EKG, rate controlled - will admit to telemetry -cardiology notified by ED provider -received ASA 324 mg in the ED - pt on coumadin for Afib, says she is takes her coumadin regularly - INR not available at this time (sample hemolyzed), will follow - pt on ASA and plavix at home for hx of CAD - also takes metoprolol succinate, lasix, spironolactone and isosorbide mono nitrate - pt seen by Dr. Knight (scallop shucker) on 12/24/2019 - at that time no change in meds, pt was doing well - denies any other associated symptoms such as shortness of breath, diaphoresis, nausea, there was no radiation of pain anywhere, CP felt like pressure - on my exam, pt is holding her LUQ abdomen, but denies any current pain, granddaughter insists she was holding her left chest earlier - will obtain KUB to eval poss. abd. pain, pt is very poor historian d/t dementia, relies on family to provide history (4) Diastolic CHF, chronic: - proBNP wnl, no pulm. edema on CXR, no incr. volume status on physical exam - cont. home metoprolol succinate, lasix, spironolactone - well compensated at this time (5) Atrial fibrillation: - rate controlled - on digoxin, coumadin - INR not available yet (sample in ED hemolyzed) - follow up INR (6) Dyslipidemia: - cont. rosuvastatin (7) Diabetes mellitus, type 2: - on insulin at home (NPH), will cont. - will monitor (8) GERD (gastroesophageal reflux disease): - cont. PPI - may have some abd. discomfort (hx is unclear from pt), will obtain KUB (9) Chronic kidney disease (CKD), stage III (moderate): CKD stage 3-4 - follows in CKD clinic - renal function seems to be at baseline - try to avoid nephrotoxic agents - cont. to monitor (10) Obesity, Class III, BMI 40-49.9 (morbid obesity): - lifestyle modification encouraged History of Present Illness Chief Complaint: Left sided chest pain/pressure Primary Care Provider: Camila Olson MD 84 year-old female, with history of CAD, status post prior coronary intervention to the LAD, left circumflex, RCA, history of A. fib on Coumadin, diastolic CHF/chronic,CKD stage 3-4, diabetes mellitus type 2, hypertension, hyperlipidemia, dementia who presents with chest pain. Patient is alert and awake, however history is mostly obtained from her family members, especially her granddaughter who is a family medicine PA. Patient has history of dementia and is unable to provide proper history. Per family, patient woke up this morning and had some discomfort at left chest area. She then got up and had breakfast, and it seemed to bother her more, so she called her granddaughter (who is currently at the bedside). Her granddaughter states that she called her around 1 PM and she arrived at pt's house around 2 PM and at that time it was still bothering her. Patient at that time pointed to left chest area, and said it felt like pressure/heaviness, it did not radiate anywhere. She often gets indigestion, and discomfort is usually relieved by taking Tums and Maalox. She took Tums and Maalox however it did not quite go away right away. She does not remember when the pain stopped however she says that she does not have any right now. Her granddaughter took her vital signs at home, and says that she was stable her O2 saturation on room air was 98%, heart rate in the 70s, blood pressure 118/62. She also did not complain about any shortness of breath, diaphoresis, nausea. The pt's granddaughter says that patient "gets winded" easily. Patient's confirms that patient is mostly in a wheelchair, gets up to the bathroom and back, and she never takes stairs. Her granddaughter report similar incident 2 weeks ago when pt had similar presentation, took tums, maalox and nitro and pain was relieved. Pt did not take nitro this time. She saw her scallop shucker, Dr. Knight on 12/24/2019, at that time there were no medications changes, per Dr. Knight's note, pt's volume status was improved (less edema) and overall she was doing well. In the ED she received ASA 324 mg, cardiology was contacted and ED physician was instructed to call for admission, and that pt will be seen by cardiology tomorrow, no further acute management at this time. Allergies Allergy/AdvReac Type Severity Reaction Status Date / Time Sulfa (Sulfonamide Allergy Unknown HIVES Unverified 01/12/20 16:43 Antibiotics) Home Medications Home Medications Medication Instructions Recorded Confirmed Type clopidogrel [Plavix] 75 mg PO QAM 11/20/18 01/12/20 History gabapentin 300 mg PO BID 11/20/18 01/12/20 History pantoprazole 40 mg PO DAILY 11/20/18 01/12/20 History albuterol sulfate 2 puff INHALATION Q4 PRN 11/21/18 01/12/20 History digoxin 125 mcg PO 3XWK 11/21/18 01/12/20 History furosemide [Lasix] 40 mg PO 3XWK 11/21/18 01/12/20 History insulin NPH and regular human 44 unit SUBCUT BID 11/21/18 01/12/20 History isosorbide mononitrate 30 mg PO DAILY 11/21/18 01/12/20 History metoprolol succinate 50 mg PO DAILY 11/21/18 01/12/20 History nitroglycerin [Nitrostat] 0.4 mg SUBLINGUAL UD PRN 11/21/18 01/12/20 History quetiapine 25 mg PO HS 11/21/18 01/12/20 History rosuvastatin 20 mg PO DAILY 11/21/18 01/12/20 History sennosides [senna] 8.6 mg PO DAILY PRN 11/21/18 01/12/20 History warfarin 1 mg PO Q OTHER DAY 11/21/18 01/12/20 History warfarin 2 mg PO Q OTHER DAY 11/21/18 01/12/20 History acetaminophen [Tylenol Arthritis 650 mg PO Q8H PRN 05/22/19 01/12/20 History Pain] spironolactone 12.5 mg PO DAILY 05/22/19 01/12/20 History tramadol 50 mg PO Q6H PRN #7 tab 05/22/19 01/12/20 Rx triamcinolone acetonide 1 applic TOPICAL BID 05/22/19 01/12/20 History calcium carbonate-vitamin D3 1 tab PO BID 01/12/20 01/12/20 History [Calcium 500 + D] citalopram 10 mg PO HS 01/12/20 01/12/20 History duloxetine 20 mg PO HS 01/12/20 01/12/20 History miconazole nitrate 1 applic TOPICAL DAILY PRN 01/12/20 01/12/20 History Past Med/Surg History Medical History Anemia (Chronic) Anxiety (Chronic) Asthma (Chronic) Carpal tunnel syndrome (Chronic) Chronic kidney disease (CKD), stage III (moderate) (Chronic) Coronary artery disease (Chronic) "s/p IA, s/p PCI " Depression (Chronic) Diabetes mellitus, type 2 (Chronic) Diastolic CHF, chronic (Chronic) Dyslipidemia (Chronic) Elevated troponin (Acute) GERD (gastroesophageal reflux disease) (Chronic) History of cancer of vulva (Chronic) History of colon cancer (Chronic) History of herpes zoster (Chronic) Nonalcoholic fatty liver disease (Chronic) Obesity, Class III, 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) Osteoarthritis (Chronic) Pulmonary nodules (Chronic) "CT and PET 2011" Restless leg syndrome (Chronic) Sleep apnea (Chronic) Systolic CHF, chronic (Chronic) "LVEF 35%" Surgical History Status post cardiac catheterization (Chronic) Status post cholecystectomy (Chronic) Status post coronary artery stent placement (Chronic) Status post hysterectomy (Chronic) Status post partial colectomy (Chronic) "colon Ca" Family History Other Family history non-contributory Social History Preferred Language: Icelandic Communication Ability: Effective Wire Tester Required: No Beliefs That Will Affect Care: None marital status: Current Living Situation: Spouse Other Information That Helps Us Care for You: No Feels Safe at Home: Yes Safety Concerns: Feels Safe At This Time Smoking Status: Never smoker Hx Alcohol Use: No Hx Substance Use: No Review of Systems Review of Systems: All systems reviewed & are unremarkable except as noted in HPI & below Constitutional: no fever and no chills Eyes: as per Subjective / HPI; no problem reported Ear, Nose, Mouth, Throat: as per Subjective / HPI; no dizziness, no nasal discharge and no problem reported Respiratory: + dyspnea (occasional); no cough and no pain on inspiration Cardiovascular: no chest pain, no palpitations and no edema Gastrointestinal: + abdominal pain (poss. LUQ pain); no nausea, no vomiting and no diarrhea/loose stools Genitourinary: as per Subjective / HPI; no dysuria Musculoskeletal: as per Subjective / HPI; no problem reported Integumentary: as per Subjective / HPI; no lesions, no sores and no problem reported Neurologic: + memory loss (pt aware of progressive memory loss - relies on family to help provide medical history) Psychiatric: + anxiety (occasional) Endocrine: as per Subjective / HPI; no problem reported Hematologic / Lymphatic: as per Subjective / HPI and + easy bleeding (pt is on coumadin) Allergy / Immunological: see below Physical Exam Physical Exam: obese elderly female lying in bed, in NAD Constitutional: well developed, well nourished and + obese; no acute distress Eyes: PERRL, conjunctivae normal, anicteric sclerae EOM intact bilaterally ENMT: external ear and nose normal, oropharynx normal Neck: trachea midline, no thyromegaly Respiratory: normal respiratory effort, lungs clear to auscultation Auscultation: + wheezes (mild diffuse); no crackles and no rhonchi Cardiovascular: RRR, no murmur, no edema Chest (Breasts): Chest: normal inspection of chest Gastrointestinal (Abdomen): Inspection/Auscultation: abdomen normal to inspection and normal bowel sounds; abdomen not distended Percussion/Palpation: abdomen soft; abdomen nontender, no guarding and abdomen not rigid obese Musculoskeletal: no cyanosis or clubbing, extremities motor strength 5/5 Head/Neck/Chest: normocephalic, head atraumatic and neck supple Skin: no rashes, warm and dry Neurologic: PERRL, EOMI, accommodation nl, no face palsy, no dysarthria moves all extremities Psychiatric: A+Ox3, euthymic affect poor memory d/t dementia Genitourinary: no CVA tenderness Lymphatic: no cervical or axillary lymphadenopathy Results & Data Vital Signs (Past 12 Hours) Vital Signs Temp Pulse Pulse Resp BP Pulse Ox 01/12/20 18:01 79 13 96 01/12/20 18:00 78 21 146/108 H 96 01/12/20 17:31 85 19 162/96 H 97 01/12/20 17:30 83 21 95 01/12/20 17:01 80 21 96 01/12/20 17:00 77 22 174/93 H 97 01/12/20 16:35 77 18 97 01/12/20 16:31 85 27 H 97 01/12/20 16:30 85 19 145/93 H 96 01/12/20 16:01 87 23 97 01/12/20 16:00 87 27 H 124/85 96 01/12/20 15:57 97 01/12/20 15:55 97 01/12/20 15:46 90 21 123/75 96 01/12/20 15:33 82 25 H 97 01/12/20 15:16 36.7 C 94 H 18 153/73 H 98 Laboratory Results 01/12/20 01/12/20 01/12/20 Range/Units 18:00 16:16 15:35 WBC (4.8-10.8) K/uL RBC (4.2-5.4) M/uL Hgb (12.0-16.0) g/dL Hct (37-47) % MCV (80-100) fL MCH (25-34) pg MCHC (32-36) g/dL RDW Std Deviation (36.4-46.3) fL RDW Coeff of Park (11.5-14.5) % Plt Count (130-400) K/uL MPV (7.4-10.4) fL Immature Gran % (Auto) % Neut % (Auto) % Lymph % (Auto) % Garland % (Auto) % Eos % (Auto) % Baso % (Auto) % Immature Gran # (Auto) (0.00-0.02) K/uL Neut # (Auto) (1.4-6.5) K/uL Lymph # (Auto) (1.2-3.4) K/uL Garland # (Auto) (0.11-0.59) K/uL Eos # (Auto) (0-0.5) K/uL Baso # (Auto) (0-0.2) K/uL PT Pending INR Pending APTT Pending PTT Ratio Pending VBG pH 7.46 H (7.36-7.41) VBG pCO2 35 L (38-50) mmHg VBG pO2 37 mmHg VBG HCO3 25 mmol/L VBG O2 Saturation 70.5 % VBG Base Excess 1.2 mEq/L Barometric Pressure 733.9 mm/Hg Sodium 138 (136-145) mmol/L Potassium 4.3 (3.5-5.1) mmol/L Chloride 104 (98-107) mmol/L Carbon Dioxide 25 (21-32) mmol/L Anion Gap 8.0 (3-11) BUN 19 H (7-18) mg/dl Creatinine 1.55 H (0.6-1.2) mg/dl Est Cr Clr Drug Dosing Not Reportable Est GFR ( Amer) 35.5 Est GFR (Non-Af Amer) 30.6 BUN/Creatinine Ratio 12.4 (10-20) Glucose 181 H (70-99) mg/dl Calcium 8.9 (8.5-10.1) mg/dl Troponin I 0.164 H* (0-0.045) ng/ml NT-Pro-B Natriuret Pep 1182 (0-1800) pg/ml Lipase 210 (73-393) U/L 01/12/20 01/12/20 Range/Units 15:35 15:35 WBC 6.61 (4.8-10.8) K/uL RBC 5.29 (4.2-5.4) M/uL Hgb 15.9 (12.0-16.0) g/dL Hct 48.7 H (37-47) % MCV 92.1 (80-100) fL MCH 30.1 (25-34) pg MCHC 32.6 (32-36) g/dL RDW Std Deviation 48.3 H (36.4-46.3) fL RDW Coeff of Park 14.4 (11.5-14.5) % Plt Count 163 (130-400) K/uL MPV 12.3 H (7.4-10.4) fL Immature Gran % (Auto) 0.5 % Neut % (Auto) 71.3 % Lymph % (Auto) 17.7 % Garland % (Auto) 9.1 % Eos % (Auto) 1.2 % Baso % (Auto) 0.2 % Immature Gran # (Auto) 0.03 H (0.00-0.02) K/uL Neut # (Auto) 4.72 (1.4-6.5) K/uL Lymph # (Auto) 1.17 L (1.2-3.4) K/uL Garland # (Auto) 0.60 H (0.11-0.59) K/uL Eos # (Auto) 0.08 (0-0.5) K/uL Baso # (Auto) 0.01 (0-0.2) K/uL PT Cancelled INR Cancelled APTT Cancelled PTT Ratio Cancelled VBG pH (7.36-7.41) VBG pCO2 (38-50) mmHg VBG pO2 mmHg VBG HCO3 mmol/L VBG O2 Saturation % VBG Base Excess mEq/L Barometric Pressure mm/Hg Sodium (136-145) mmol/L Potassium (3.5-5.1) mmol/L Chloride (98-107) mmol/L Carbon Dioxide (21-32) mmol/L Anion Gap (3-11) BUN (7-18) mg/dl Creatinine (0.6-1.2) mg/dl Est Cr Clr Drug Dosing Est GFR ( Amer) Est GFR (Non-Af Amer) BUN/Creatinine Ratio (10-20) Glucose (70-99) mg/dl Calcium (8.5-10.1) mg/dl Troponin I (0-0.045) ng/ml NT-Pro-B Natriuret Pep (0-1800) pg/ml Lipase (73-393) U/L Diagnostic Findings CXR FINDINGS: No pneumothorax. No pleural effusions. The heart remains mildly enlarged. No evidence for pulmonary edema. Linear density within the right lung base consistent with subsegmental atelectasis. The lungs are otherwise clear. IMPRESSION: Stable mild cardiomegaly. Code Status & VTE Plan Code Status Full
--- NOTE | 2020-01-12 18:52 | XRay Report ---
KUB HISTORY: left quad. abd. Discomfort COMPARISON: None. FINDINGS: The bowel gas pattern is unremarkable. There are no dilated loops of small bowel to suggest an obstruction. No renal calculi. No ureteral calculi. Calcifications in the deep pelvis likely rep resent phleboliths. Vascular calcifications are noted. There are surgical clips within the right groi n. Prior cholecystectomy. Suture material within the right upper quadrant. No pneumoperitoneum or pne umatosis. IMPRESSION: 1. No evidence for bowel obstruction. 2. No renal or ureteral calculi. ACT 112: Negative or not required by law. Electronically signed by: Nestor Pineda M.D. 01/12/2020 6:51 PM
--- NOTE | 2020-01-12 20:06 | Emergency Department Note ---
Entered by Aliza Silva acting as a scribe for Óscar Morales History of Present Illness General Chief complaint: Chest Pain Stated complaint: CHEST PAIN Time Seen by Provider: 01/12/20 15:40 Source: patient and family (granddaughter) History of Present Illness Provider complaint: chest pain Onset (ago): hour(s) 2 Location: chest and left Maximum Pain Intensity: 6 Quality: + other (chest pain) Relieved By: not by medication Associated symptoms: + cough; no fever/chills, no nausea/vomiting and no shortness of breath Treatments prior to arrival: other (Tums; Maalox) The patient, who is a 84 year old female with a medical history of anemia, GERD, and CKD, presents to the Emergency Room with complaints of left sided chest p ain that started today. The patient's granddaughter states that the patient called her at 1300 with this complaint. The patient expresses that her observed that she was not looking well. The patient states that she has a slight cough without bloody production. The patient denies nausea, fevers, vomiting or shortness of breath. The patient states that she had Tums and Maalox that did not alleviate her symptoms. The patient informs that she has not seen her detention attendant Dr. Knight for a while. The patient's granddaughter informs that the patient has diabetes, high cholesterol and 7 to 8 stents. The patient expresses that she is cancer free. The patient denies a smoking history. The pat ient denies any recent travel. The patient's record shows that the patient is currently on Coumadin. Home Medications Home Medications Medication Instructions Recorded Confirmed Type clopidogrel [Plavix] 75 mg PO QAM 11/20/18 01/12/20 History gabapentin 300 mg PO BID 11/20/18 01/12/20 History pantoprazole 40 mg PO DAILY 11/20/18 01/12/20 History albuterol sulfate 2 puff INHALATION Q4 PRN 11/21/18 01/12/20 History digoxin 125 mcg PO 3XWK 11/21/18 01/12/20 History furosemide [Lasix] 40 mg PO 3XWK 11/21/18 01/12/20 History insulin NPH and regular human 44 unit SUBCUT BID 11/21/18 01/12/20 History isosorbide mononitrate 30 mg PO DAILY 11/21/18 01/12/20 History metoprolol succinate 50 mg PO DAILY 11/21/18 01/12/20 History nitroglycerin [Nitrostat] 0.4 mg SUBLINGUAL UD PRN 11/21/18 01/12/20 History quetiapine 25 mg PO HS 11/21/18 01/12/20 History rosuvastatin 20 mg PO DAILY 11/21/18 01/12/20 History sennosides [senna] 8.6 mg PO DAILY PRN 11/21/18 01/12/20 History warfarin 1 mg PO Q OTHER DAY 11/21/18 01/12/20 History warfarin 2 mg PO Q OTHER DAY 11/21/18 01/12/20 History acetaminophen [Tylenol Arthritis 650 mg PO Q8H PRN 05/22/19 01/12/20 History Pain] spironolactone 12.5 mg PO DAILY 05/22/19 01/12/20 History tramadol 50 mg PO Q6H PRN #7 tab 05/22/19 01/12/20 Rx triamcinolone acetonide 1 applic TOPICAL BID 05/22/19 01/12/20 History calcium carbonate-vitamin D3 1 tab PO BID 01/12/20 01/12/20 History [Calcium 500 + D] citalopram 10 mg PO DAILY 01/12/20 01/12/20 History miconazole nitrate 1 applic TOPICAL DAILY PRN 01/12/20 01/12/20 History Allergies Allergy/AdvReac Type Severity Reaction Status Date / Time Sulfa (Sulfonamide Allergy Unknown HIVES Unverified 01/12/20 16:43 Antibiotics) Past Med/Surg History Medical History Anemia (Chronic) Anxiety (Chronic) Asthma (Chronic) Carpal tunnel syndrome (Chronic) Chronic kidney disease (CKD), stage III (moderate) (Chronic) Coronary artery disease (Chronic) "s/p IN, s/p PCI " Depression (Chronic) Diabetes mellitus, type 2 (Chronic) Diastolic CHF, chronic (Chronic) Dyslipidemia (Chronic) Elevated troponin (Acute) GERD (gastroesophageal reflux disease) (Chronic) History of cancer of vulva (Chronic) History of colon cancer (Chronic) History of herpes zoster (Chronic) Nonalcoholic fatty liver disease (Chronic) Obesity, Class III, 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) Osteoarthritis (Chronic) Pulmonary nodules (Chronic) "CT and PET 2011" Restless leg syndrome (Chronic) Sleep apnea (Chronic) Systolic CHF, chronic (Chronic) "LVEF 35%" Surgical History Status post cardiac catheterization (Chronic) Status post cholecystectomy (Chronic) Status post coronary artery stent placement (Chronic) Status post hysterectomy (Chronic) Status post partial colectomy (Chronic) "colon Ca" Family History Other Family history non-contributory Social History Preferred Language: Pakistani Communication Ability: Effective 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 and A total of 10 systems reviewed and were otherwise negative Physical Exam Vital Signs Vital Signs - 24 hr 01/12/20 15:16 01/12/20 15:33 01/12/20 15:35 Temperature 36.7 C Temperature Source Oral Pulse Rate 94 H 82 Pulse Rate [Left Finger] Pulse Rate from SpO2 Sensor 81 Respiratory Rate 18 25 H Respiratory Effort / Characteristics Spontaneous Accessory Muscle Use Labored Short of Breath SOB on Exertion Respiratory Depth Normal Normal Blood Pressure 153/73 H Blood Pressure Mean 99 Pulse Oximetry 98 97 Oxygen Delivery Method Room Air Room Air Sepsis Recent Fever Within 48 Hours No Sepsis Action Taken by Nursing No Action Required 01/12/20 15:46 01/12/20 15:55 01/12/20 15:57 Temperature Temperature Source Pulse Rate 90 Pulse Rate [Left Finger] Pulse Rate from SpO2 Sensor 89 Respiratory Rate 21 Respiratory Effort / Characteristics Respiratory Depth Blood Pressure 123/75 Blood Pressure Mean 86 Pulse Oximetry 96 97 97 Oxygen Delivery Method Room Air Room Air Sepsis Recent Fever Within 48 Hours Sepsis Action Taken by Nursing 01/12/20 16:00 01/12/20 16:01 01/12/20 16:30 Temperature Temperature Source Pulse Rate 87 87 85 Pulse Rate [Left Finger] Pulse Rate from SpO2 Sensor 84 84 85 Respiratory Rate 27 H 23 19 Respiratory Effort / Characteristics Respiratory Depth Blood Pressure 124/85 145/93 H Blood Pressure Mean 95 115 Pulse Oximetry 96 97 96 Oxygen Delivery Method Sepsis Recent Fever Within 48 Hours Sepsis Action Taken by Nursing 01/12/20 16:31 01/12/20 16:35 01/12/20 17:00 Temperature Temperature Source Pulse Rate 85 77 Pulse Rate [Left Finger] 77 Pulse Rate from SpO2 Sensor 79 80 Respiratory Rate 27 H 18 22 Respiratory Effort / Characteristics Non-Labored Spontaneous Respiratory Depth Blood Pressure 174/93 H Blood Pressure Mean 99 Pulse Oximetry 97 97 97 Oxygen Delivery Method Room Air Sepsis Recent Fever Within 48 Hours Sepsis Action Taken by Nursing 01/12/20 17:01 01/12/20 17:30 01/12/20 17:31 Temperature Temperature Source Pulse Rate 80 83 85 Pulse Rate [Left Finger] Pulse Rate from SpO2 Sensor 87 75 82 Respiratory Rate 21 21 19 Respiratory Effort / Characteristics Respiratory Depth Blood Pressure 162/96 H Blood Pressure Mean 109 Pulse Oximetry 96 95 97 Oxygen Delivery Method Sepsis Recent Fever Within 48 Hours Sepsis Action Taken by Nursing 01/12/20 18:00 01/12/20 18:01 01/12/20 18:46 Temperature Temperature Source Pulse Rate 78 79 93 H Pulse Rate [Left Finger] Pulse Rate from SpO2 Sensor 78 79 78 Respiratory Rate 21 13 17 Respiratory Effort / Characteristics Respiratory Depth Blood Pressure 146/108 H Blood Pressure Mean 119 Pulse Oximetry 96 96 97 Oxygen Delivery Method Sepsis Recent Fever Within 48 Hours Sepsis Action Taken by Nursing 01/12/20 18:47 01/12/20 19:00 01/12/20 19:01 Temperature Temperature Source Pulse Rate 74 85 81 Pulse Rate [Left Finger] Pulse Rate from SpO2 Sensor 75 84 78 Respiratory Rate 21 23 17 Respiratory Effort / Characteristics Respiratory Depth Blood Pressure 134/74 155/82 H Blood Pressure Mean 84 91 Pulse Oximetry 99 96 96 Oxygen Delivery Method Sepsis Recent Fever Within 48 Hours Sepsis Action Taken by Nursing GENERAL: She is oriented to person, place, and time. She appears well-developed and well-nourished. She does not appear distressed. HENT: Exam performed. Head: Normocephalic and atraumatic. Right Ear: External ear normal. No mastoid tenderness. Left Ear: External ear normal. No mastoid tenderness. Mouth/Throat: The oropharynx is clear and moist. No trismus in the jaw. No dental abscesses or uvula swelling. No oropharyngeal exudate or tonsillar abscesses. EYES: Conjunctivae and EOM are normal. Pupils are equal, round, and reactive to light. Right eye exhibits no discharge. Left eye exhibits no discharge. No scleral icterus. NECK: Normal range of motion. Neck supple. No JVD present. No spinous process tenderness present. No carotid bruit present. No rigidity. No tracheal deviation and normal range of motion present. No Brudzinski's sign and no Kernig's sign noted. CV: Normal rate, irregular rhythm, normal heart sounds and intact distal pulses. There is no peripheral edema. Palpable radial pulses bue. PULM/CHEST: Effort normal and breath sounds normal. No respiratory distress. No stridor. She has no wheezes. She has no rales. Chest Wall: She exhibits no tenderness. ABD: The abdomen is soft. Bowel sounds are normal. She has no distension. No mass is present. There is no tenderness. There is no rebound, no guarding, no Polanco's sign and no tenderness at McBurney's point. Rovsig negative MUSC/SKEL: Normal range of motion. There is no peripheral edema, tenderness or deformity. LYMPH: No cervical adenopathy. NEURO: She is alert and oriented to person, place, and time. She has normal strength. No cranial nerve deficit or sensory deficit. Coordination and gait normal. GCS eye subscore is 4. GCS verbal subscore is 5. GCS motor subscore is 6. cerbellar tests wnl. SKIN: Skin is warm and dry. She is not diaphoretic. PSYCH: She has a normal mood and affect. Her behavior is normal. Judgment and thought content normal. Course Course 1550: Past medical records reviewed. The patient was evaluated in room C5. A complete history and physical exam was performed. Continuous Cardiac Monitoring: An order was placed for continuous cardiac monitoring. The monitor shows a rate of 90 with atrial fibrillation. 1631: Vital signs stable. Labs show a creatinine of 1.55 which is at his baseline. Troponin is elevated 0.164. The patient has a chronically elevated troponin and in May her troponins were 0.150 and 0.158. Given the patient's extensive cardiac history including multiple cardiac stents, I reviewed the patient's case with Dr. Hurtado, [facility] Cardiology. I informed that the patient's labs showed elevated troponin which is chronically elevated but this episode is higher than previous. He and I both agree that the patient should be admitted to the hospitalist team for further evaluation by cardiology and serial troponins. I informed him that the patient is on Coumadin however her INR hemolyzed. He informs to hold off on Heparin even if INR is supratherapeutic. 1647: I reviewed the [facility]. He will evaluate the patient for further management. Consultations Consultation #1: I reviewed the patient's case with Dr. Hurtado, [facility] Cardiology. I informed that the patient's labs showed elevated troponin which is chronically elevated but this episode is higher than previous. He suggests that we admit the patient. He informs to hold off on Heprin even if INR is supratherapeutic. Time: 16:31 Consultation #2: I reviewed the patient's case with Dr. Nguyễn, [facility]. He will evaluate the patient for further management. Time: 16:47 Administered Medications Discontinued Medications Albuterol (Duoneb) 3 ml NEB NOW STA Stop: 01/12/20 15:57 Last Admin: 01/12/20 16:35 Dose: 3 ml Documented by: [id number] Aspirin (Aspirin) 324 mg PO NOW STA Stop: 01/12/20 17:06 Last Admin: 01/12/20 17:14 Dose: 324 mg Documented by: [id number] Medical Decision Making Medical Records Attestation: I reviewed the patient's medical records. Home Medications Current Medication List: was personally reviewed by me Laboratory Data Attestation: I reviewed the patient's lab results. Result diagrams: 01/12/20 15:35 01/12/20 15:35 Lab Results 01/12/20 01/12/20 01/12/20 Range/Units 15:35 15:35 15:35 WBC 6.61 (4.8-10.8) K/uL RBC 5.29 (4.2-5.4) M/uL Hgb 15.9 (12.0-16.0) g/dL Hct 48.7 H (37-47) % MCV 92.1 (80-100) fL MCH 30.1 (25-34) pg MCHC 32.6 (32-36) g/dL RDW Std Deviation 48.3 H (36.4-46.3) fL RDW Coeff of [place] 14.4 (11.5-14.5) % Plt Count 163 (130-400) K/uL MPV 12.3 H (7.4-10.4) fL Immature Gran % (Auto) 0.5 % Neut % (Auto) 71.3 % Lymph % (Auto) 17.7 % [place] % (Auto) 9.1 % Eos % (Auto) 1.2 % Baso % (Auto) 0.2 % Immature Gran # (Auto) 0.03 H (0.00-0.02) K/uL Neut # (Auto) 4.72 (1.4-6.5) K/uL Lymph # (Auto) 1.17 L (1.2-3.4) K/uL [place] # (Auto) 0.60 H (0.11-0.59) K/uL Eos # (Auto) 0.08 (0-0.5) K/uL Baso # (Auto) 0.01 (0-0.2) K/uL PT Cancelled INR Cancelled APTT Cancelled PTT Ratio Cancelled VBG pH (7.36-7.41) VBG pCO2 (38-50) mmHg VBG pO2 mmHg VBG HCO3 mmol/L VBG O2 Saturation % VBG Base Excess mEq/L Barometric Pressure mm/Hg Sodium 138 (136-145) mmol/L Potassium 4.3 (3.5-5.1) mmol/L Chloride 104 (98-107) mmol/L Carbon Dioxide 25 (21-32) mmol/L Anion Gap 8.0 (3-11) BUN 19 H (7-18) mg/dl Creatinine 1.55 H (0.6-1.2) mg/dl Est Cr Clr Drug Dosing Not Reportable Est GFR ( Amer) 35.5 Est GFR (Non-Af Amer) 30.6 BUN/Creatinine Ratio 12.4 (10-20) Glucose 181 H (70-99) mg/dl Calcium 8.9 (8.5-10.1) mg/dl Troponin I 0.164 H* (0-0.045) ng/ml NT-Pro-B Natriuret Pep 1182 (0-1800) pg/ml Lipase 210 (73-393) U/L 01/12/20 01/12/20 Range/Units 16:16 18:00 WBC (4.8-10.8) K/uL RBC (4.2-5.4) M/uL Hgb (12.0-16.0) g/dL Hct (37-47) % MCV (80-100) fL MCH (25-34) pg MCHC (32-36) g/dL RDW Std Deviation (36.4-46.3) fL RDW Coeff of [place] (11.5-14.5) % Plt Count (130-400) K/uL MPV (7.4-10.4) fL Immature Gran % (Auto) % Neut % (Auto) % Lymph % (Auto) % [place] % (Auto) % Eos % (Auto) % Baso % (Auto) % Immature Gran # (Auto) (0.00-0.02) K/uL Neut # (Auto) (1.4-6.5) K/uL Lymph # (Auto) (1.2-3.4) K/uL [place] # (Auto) (0.11-0.59) K/uL Eos # (Auto) (0-0.5) K/uL Baso # (Auto) (0-0.2) K/uL PT 16.2 H INR 1.6 H APTT 30.1 PTT Ratio 1.1 VBG pH 7.46 H (7.36-7.41) VBG pCO2 35 L (38-50) mmHg VBG pO2 37 mmHg VBG HCO3 25 mmol/L VBG O2 Saturation 70.5 % VBG Base Excess 1.2 mEq/L Barometric Pressure 733.9 mm/Hg Sodium (136-145) mmol/L Potassium (3.5-5.1) mmol/L Chloride (98-107) mmol/L Carbon Dioxide (21-32) mmol/L Anion Gap (3-11) BUN (7-18) mg/dl Creatinine (0.6-1.2) mg/dl Est Cr Clr Drug Dosing Est GFR ( Amer) Est GFR (Non-Af Amer) BUN/Creatinine Ratio (10-20) Glucose (70-99) mg/dl Calcium (8.5-10.1) mg/dl Troponin I (0-0.045) ng/ml NT-Pro-B Natriuret Pep (0-1800) pg/ml Lipase (73-393) U/L Imaging Data Radiologist's Impression: Radiology results as stated below per my review and the radiologist's interpretation: XR chest 1V portable HISTORY: Atypical chest pain. COMPARISON: Chest 05/22/2019. FINDINGS: No pneumothorax. No pleural effusions. The heart remains mildly enlarged. No evidence for pulmonary edema. Linear density within the right lung base consistent with subsegmental atelectasis. The lungs are otherwise clear. IMPRESSION: Stable mild cardiomegaly. ACT 112: Negative or not required by law. Electronically signed by: Nestor Pineda M.D. 01/12/2020 4:12 PM KUB HISTORY: left quad. abd. Discomfort COMPARISON: None. FINDINGS: The bowel gas pattern is unremarkable. There are no dilated loops of small bowel to suggest an obstruction. No renal calculi. No ureteral calculi. Calcifications in the deep pelvis likely represent phleboliths. Vascular calcifications are noted. There are surgical clips within the right groin. Prior cholecystectomy. Suture material within the right upper quadrant. No pn eumoperitoneum or pneumatosis. IMPRESSION: 1. No evidence for bowel obstruction. 2. No renal or ureteral calculi. ACT 112: Negative or not required by law. Electronically signed by: Nestor Pineda M.D. 01/12/2020 6:51 PM ECG Data Attestation: I personally reviewed and interpreted this ECG as follows: Indication: + chest pain Rate (beats per minute): 89 Rhythm: + atrial fibrillation ECG Intervals/blocks: + Normal QRS, + Normal [place] and + Normal QT-c ECG ST segments: no ST depression and no ST elevation Blood Pressure Blood Pressure Findings: Elevated blood pressure Blood Pressure Disposition: further management by hospitalist SANDY Narrative 1550: Past medical records reviewed. The patient was evaluated in room C5. A complete history and physical exam was performed. Continuous Cardiac Monitoring: An order was placed for continuous cardiac monitoring. The monitor shows a rate of 90 with atrial fibrillation. 1631: Vital signs stable. Labs show a creatinine of 1.55 which is at his baseline. Troponin is elevated 0.164. The patient has a chronically elevated troponin and in May her troponins were 0.150 and 0.158. Given the patient's extensive cardiac history including multiple cardiac stents, I reviewed the patient's case with Dr. Hurtado, [facility] Cardiology. I informed that the patient's labs showed elevated troponin which is chronically elevated but this episode is higher than previous. He and I both agree that the patient should be admitted to the hospitalist team for further evaluation by cardiology and serial troponins. I informed him that the patient is on Coumadin however her INR hemolyzed. He informs to hold off on Heparin even if INR is supratherapeutic. 1647: I reviewed the patient's case with Dr. Martínez, [facility] Hospitalist. He will evaluate the patient for further management. Impression & Plan Non-ST elevation IN (NSTEMI) Discharge Plan Visit Data Chief Complaint: Chest Pain Stated Complaint: CHEST PAIN ED Provider: Óscar Morales Discharge Problem: Non-ST elevation IN (NSTEMI) Patient Disposition: Being Evaluated by Hospitalist Discharge Instructions Interventions: ED Discharge Assessment Last Done: 01/12/20 19:13 Forms Stand Alone Forms: [facility] [employer] Prescriptions Prescriptions: No Action gabapentin 300 mg capsule 300 mg PO BID RF: 0 clopidogrel [Plavix] 75 mg Tablet 75 mg PO QAM RF: 0 pantoprazole 40 mg Tablet,Delayed Release (Dr/Ec) 40 mg PO DAILY RF: 0 nitroglycerin [Nitrostat] 0.4 mg Tablet, Sublingual 0.4 mg Sublingual UD PRN (Reason: Chest Pain) RF: 0 furosemide [Lasix] 40 mg Tablet 40 mg PO 3XWK RF: 0 rosuvastatin 20 mg tablet 20 mg PO DAILY RF: 0 metoprolol succinate 50 mg tablet extended release 24 hr 50 mg PO DAILY RF: 0 isosorbide mononitrate 30 mg tablet extended release 24 hr 30 mg PO DAILY RF: 0 digoxin 125 mcg tablet 125 mcg PO 3XWK RF: 0 quetiapine 25 mg tablet 25 mg PO HS RF: 0 insulin NPH and regular human 100 unit/mL (70-30) suspension 44 unit subcut BID RF: 0 warfarin 2 mg tablet 1 mg PO Q OTHER DAY RF: 0 warfarin 2 mg tablet 2 mg PO Q OTHER DAY RF: 0 sennosides [senna] 8.6 mg Tablet 8.6 mg PO DAILY PRN (Reason: Constipation) RF: 0 albuterol sulfate 90 mcg/actuation Hfa Aerosol Inhaler 2 puff INHALATION Q4 PRN (Reason: Shortness Of Breath Or Wheezing) RF: 0 citalopram 10 mg tablet 10 mg PO DAILY RF: 0 miconazole nitrate 2 % Powder 1 applic TOPICAL DAILY PRN (Reason: Rash) RF: 0 calcium carbonate-vitamin D3 [Calcium 500 + D] 500 mg(1,250mg) -200 unit Tablet 1 tab PO BID RF: 0 triamcinolone acetonide 0.1 % Cream 1 applic TOPICAL BID RF: 0 spironolactone 25 mg Tablet 12.5 mg PO DAILY RF: 0 acetaminophen [Tylenol Arthritis Pain] 650 mg Tablet Extended Release 650 mg PO Q8H PRN (Reason: PAIN) RF: 0 tramadol 50 mg tablet 50 mg PO Q6H PRN (Reason: pain) Qty: 7 RF: 0 Referrals Referrals: Camila Olson MD [Primary Care Provider] - The scribe's documentation has been prepared under my direction and personally reviewed by me in its entirety. I confirm that the note above accurately reflects all work, treatment, procedures, and medical decision making performed by me.
[2020-01-12] MEDS ORDERED: ALBUTEROL HFA 8 GM INHALER INH PRN (20:18)
[2020-01-12] MEDS ORDERED: WARFARIN SOD 1 MG TAB PO SCH (20:18)
[2020-01-12] MEDS ORDERED: MICONAZOLE NITRATE POWDER 43 GM TOP PRN (20:18)
[2020-01-12] MEDS ORDERED: NON-FORMULARY MEDICATION (Acetaminophen [Tylenol Arthritis Pain] 650 MG) PO PRN (20:18)
[2020-01-12] MEDS ORDERED: SENNA 8.6 MG TAB PO PRN (20:18)
[2020-01-12] MEDS ORDERED: TRAMADOL HCL 50 MG TABLET PO PRN (20:18)
[2020-01-12] MEDS ORDERED: GLUCOSE 40% GEL 15 GM TUBE PO PRN (20:30)
[2020-01-12] MEDS ORDERED: GLUCOSE 10 TABS/TUBE PO PRN (20:30)
[2020-01-12] MEDS ORDERED: GLUCAGON FOR INJ 1 MG VIAL IM PRN (20:30)
[2020-01-12] MEDS ORDERED: CARBOHYDRATES FOR HYPOGLYCEMIA PO PRN (20:30)
[2020-01-12] MEDS ORDERED: DEXTROSE 50% 50 ML SYRINGE IV PRN (20:30)
[2020-01-12] MEDS: INSULIN HUMAN 70% NPH/30% REGULAR SC SCH (21:13)
[2020-01-12] MEDS: GABAPENTIN 300 MG CAP PO SCH (21:14)
[2020-01-12] MEDS: TRIAMCINOLONE ACET 0.1% CR 15 GM TUBE TOP SCH (21:14)
[2020-01-12] MEDS: QUETIAPINE FUMARATE 25 MG TABLET PO SCH (21:15)
[2020-01-12] MEDS ORDERED: Nursing to Pharmacy Communication ONE (21:29)
[2020-01-12] MEDS: DULOXETINE HCL 20 MG CAP PO SCH (21:45)
[2020-01-12] MEDS: CITALOPRAM 20 MG TAB PO SCH (21:45)
[2020-01-13] MEDS ORDERED: WARFARIN SOD 1 MG TAB PO STA (00:03)
--- NOTE | 2020-01-13 03:11 | Communication Note ---
Date of Service: January 13, 2020 Made aware by RN of [email or web address] troponin of 2. Patient comfortable as per RN. INR 1.8 AP ACS Continue antiplatelet, beta-davin, statin Rx IV heparin for now while INR subtherapeutic Will relay to AM provider.
[2020-01-13 03:59] LABS: Basophils # (auto) 0.02 K/uL (0-0.2); Basophils % (auto) 0.3 %; Eosinophils # (auto) 0.09 K/uL (0-0.5); Eosinophils % (auto) 1.5 %; Hematocrit (blood only) 45.6 % (37-47); Hemoglobin 14.9 g/dL (12.0-16.0); Immature Granulocytes # (auto) 0.03 K/uL (0.00-0.02); Immature Granulocytes % (auto) 0.5 %; Lymphocytes # (auto) 1.39 K/uL (1.2-3.4); Lymphocytes % (auto) 23.8 %; Mean Corpuscular Hgb Conc 32.7 g/dL (32-36); Mean Corpuscular Volume 91.8 fL (80-100); Mean Platelet Volume 11.8 fL (7.4-10.4); Monocytes # (auto) 0.74 K/uL (0.11-0.59); Monocytes % (auto) 12.6 %; Neutrophils # (auto) 3.58 K/uL (1.4-6.5); Neutrophils % (auto) 61.3 %; Platelet Count 161 K/uL (130-400); RDW Coefficient of Variation 14.1 % (11.5-14.5); RDW Standard Deviation 47.2 fL (36.4-46.3); Red Blood Count 4.97 M/uL (4.2-5.4); White Blood Count 5.85 K/uL (4.8-10.8)
[2020-01-13 04:07] LABS: INR 1.8 (0.9-1.1); Partial Thromboplastin Ratio 1.1; Partial Thromboplastin Time 30.8 Seconds (21.0-31.0); Prothrombin Time 17.5 Seconds (9.0-12.0)
[2020-01-13] MEDS ORDERED: Heparin IV Standard *NO* Bolus IV STA (04:16)
[2020-01-13 04:22] LABS: BUN Creatinine Ratio 12.1 (10-20); Calcium 8.7 mg/dl (8.5-10.1); Creatinine Clr Calc Pharmacy 33.3 ml/min; Est GFR (African American) 38.8; Est GFR (Non-African American) 33.5; Magnesium 2.1 mg/dl (1.8-2.4); Phosphorus 3.4 mg/dl (2.5-4.9); Potassium 3.9 mmol/L (3.5-5.1)
[2020-01-13] MEDS ORDERED: HEPARIN SODIUM/DEXTROSE 25,000 UNITS/500 ML BAG IV SCH (04:30)
[2020-01-13] MEDS ORDERED: FUROSEMIDE 40 MG TAB PO SCH (09:00)
[2020-01-13] MEDS ORDERED: PANTOprazole 40 MG TAB PO SCH (09:00)
[2020-01-13] MEDS ORDERED: ISOSORBIDE MONO EXTENDED REL 30 MG TABCR PO SCH (09:00)
[2020-01-13] MEDS ORDERED: CITALOPRAM 20 MG TAB PO SCH (09:00)
[2020-01-13] MEDS: INSULIN HUMAN 70% NPH/30% REGULAR SC SCH (09:36)
[2020-01-13] MEDS ORDERED: GLUCOSE 40% GEL 15 GM TUBE PO PRN (09:38)
[2020-01-13] MEDS ORDERED: DEXTROSE 50% 50 ML SYRINGE IV PRN (09:38)
[2020-01-13] MEDS ORDERED: GLUCAGON FOR INJ 1 MG VIAL SQ PRN (09:38)
[2020-01-13] MEDS ORDERED: CARBOHYDRATES FOR HYPOGLYCEMIA PO PRN (09:38)
[2020-01-13] MEDS ORDERED: GLUCOSE 10 TABS/TUBE PO PRN (09:38)
[2020-01-13] MEDS: CLOPIDOGREL BISULFATE 75 MG TAB PO SCH (10:30)
[2020-01-13] MEDS: ASPIRIN 81 MG ECTAB PO SCH (10:30)
[2020-01-13] MEDS: ROSUVASTATIN CALCIUM 20 MG TAB PO SCH (10:30)
[2020-01-13] MEDS: SPIRONOLACTONE 25 MG TAB PO SCH (10:30)
[2020-01-13] MEDS: METOPROLOL SUCC 50MG EXT REL TAB PO SCH (10:30)
[2020-01-13] MEDS: CALCIUM 600MG + VIT D 400 IU TAB PO SCH ×2 (10:31→16:13)
[2020-01-13] MEDS: GABAPENTIN 300 MG CAP PO SCH ×2 (10:31→21:48)
[2020-01-13] MEDS: TRIAMCINOLONE ACET 0.1% CR 15 GM TUBE TOP SCH ×2 (10:34→21:46)
--- NOTE | 2020-01-13 10:47 | Electrocardiogram Report ---
Test Reason : Blood Pressure : / mmHG Vent. Rate : 089 BPM Atrial Rate : 078 BPM P-R Int : 000 ms QRS Dur : 082 ms QT Int : 364 ms P-R-T Axes : 000 -61 106 degrees QTc Int : 442 ms Atrial fibrillation Left axis deviation Septal infarct (cited on or before 09-JUN-2016) Abnormal ECG When compared with ECG of 22-MAY-2019 10:06, No significant change was found Confirmed by George Tamayo ([id number]) on 01/13/2020 10:47:16 AM Referred By: REFERRED SELF Confirmed By:George Tamayo
[2020-01-13 11:46] LABS: Partial Thromboplastin Ratio 2.6
[2020-01-13] MEDS ORDERED: INSULIN ASPART 100 UNITS/ML 3 ML PEN SC SCH (12:00)
[2020-01-13 12:16] LABS: Partial Thromboplastin Time 71.5 Seconds (21.0-31.0)
--- NOTE | 2020-01-13 13:26 | Cardiology Consultation ---
Date of Consultation January 13, 2020 Assessment & Plan (1) Chest pain: Per history it does appear to be very atypical in nature. There is no positional component to her chest discomfort nor am I able to provoke it at this time with changing her position. She has not had any further discomfort since admission. Differential diagnosis at this point would be acute pericarditis versus chronic stable angina versus GERD versus acute ischemia. Given the fact that her echocardiogram has no new wall motion abnormalities I do not believe is active ischemia There is no positional component to her discomfort and it is only occurred twice in the last several weeks so I do not believe it is pericardial in nature either. So at this time I believe the most prudent course of action would be to treat her for both chronic stable angina and GERD. To that end I will increase her Imdur to 30 mg twice daily and consideration may also be given to adding low-dose amlodipine on top of her current beta-davin. I will increase her Protonix to twice daily and add famotidine twice daily as well for possible GERD Given the fact that does not appear to be active ischemia her heparin will be discontinued. All other outpatient medications will be continued. (2) Elevated troponin: Again, do not see any active ischemia Likely myocardial strain due to chronic stable angina Treatment as above (3) Diastolic CHF, chronic: Stable, does not appear as volume overload at this time. (4) Pericardial effusion: Small loculated anterior pericardial effusion Again symptoms are not consistent with pericardial pain Given her GERD I would avoid using NSAIDs at this time. (5) Coronary artery disease: Extensive history but stable at this time (6) Dementia: (7) Atrial fibrillation: Chronic, rate controlled Continue warfarin therapy with a goal INR of 2-3 History of Present Illness Reason for Consultation: chest pain Requesting Physician: Dr. Martínez Attending Physician: Bishnu Martínez MD History of Present Illness It was my pleasure to see Mrs. Pierce in consultation today January 13, 2020. She is a very pleasant yet significantly demented 84-year-old woman who normally follows with Dr. Knight of our cardiology practice. She presents to [facility] on 01/12/2020 with complaints of chest pain. The patient is significantly confused and I obtained history from her daughter at the bedside as well as review of medical records. Her daughter states that she had chest pain approximately 1 week ago which she described as a substernal pressure sensation. At that time she was given Maalox and Tums with some improvement of the discomfort however it did not resolve on its own until 3 hours later. She did not take nitroglycerin at that time. Then on 01/12/2020 she had another episode of chest pain was exactly similar this time she was given Tums, Maalox a nd nitroglycerin with significant improvement of her discomfort. At that time her niece who is a physician's administrative support assistant recommend she go to the emergency department. Upon arrival emergency department she had a mild elevation of her troponin which is chronic and her chest pain resolved. I discussed the case with the ER doc at that time and she was admitted to the floor. A second set of troponin came back elevated at 2 and she was started on heparin. The patient is significantly confused at the time of my interview and when I asked if she had any chest discomfort she pointed to the right lower quadrant of her abdomen. Upon further prompting by her daughter she did state that she had chest pain and it was very significant. She does not remember if it was her anginal equivalent. She is currently comfortable at rest. There is no positional component to her chest discomfort nor is it provokable at this time. Past medical history as per most recent outpatient cardiology visit: 1.Atherosclerotic coronary disease, diffuse diabetic status post prior coronary intervention to the left anterior descending, left circumflex, and right coronary arteries. Most recent coronary intervention was to the right coronary artery in November 2014 with chronic class 3 angina pectoris 2.Mild left ventricular dysfunction with compensated chronic systolic and diastolic heart failure with EF 50-55%. 3.Hypertension. 4.Diabetes mellitus. 5.Chronic renal insufficiency, CKD 3 -4 with episode acute renal insufficiency 2015 6.Hyperlipidemia with low HDL, dyslipidemia. 7. Gradually progressive dementia. 8. Hospitalization in November [address] segment elevation myocardial infarction in the setting of acute on chronic diastolic heart failure 9. Suspected nocturnal hypoxia with documented history sleep apnea and CPAP intolerance 10. Chronic atrial fibrillation Allergies Allergy/AdvReac Type Severity Reaction Status Date / Time Sulfa (Sulfonamide Allergy Unknown HIVES Unverified 01/12/20 16:43 Antibiotics) Home Medications Home Medications Medication Instructions Recorded Confirmed Type clopidogrel [Plavix] 75 mg PO QAM 11/20/18 01/12/20 History gabapentin 300 mg PO BID 11/20/18 01/12/20 History pantoprazole 40 mg PO DAILY 11/20/18 01/12/20 History albuterol sulfate 2 puff INHALATION Q4 PRN 11/21/18 01/12/20 History digoxin 125 mcg PO 3XWK 11/21/18 01/12/20 History furosemide [Lasix] 40 mg PO 3XWK 11/21/18 01/12/20 History insulin NPH and regular human 44 unit SUBCUT BID 11/21/18 01/12/20 History isosorbide mononitrate 30 mg PO DAILY 11/21/18 01/12/20 History metoprolol succinate 50 mg PO DAILY 11/21/18 01/12/20 History nitroglycerin [Nitrostat] 0.4 mg SUBLINGUAL UD PRN 11/21/18 01/12/20 History quetiapine 25 mg PO HS 11/21/18 01/12/20 History rosuvastatin 20 mg PO DAILY 11/21/18 01/12/20 History sennosides [senna] 8.6 mg PO DAILY PRN 11/21/18 01/12/20 History warfarin 1 mg PO Q OTHER DAY 11/21/18 01/12/20 History warfarin 2 mg PO Q OTHER DAY 11/21/18 01/12/20 History acetaminophen [Tylenol Arthritis 650 mg PO Q8H PRN 05/22/19 01/12/20 History Pain] spironolactone 12.5 mg PO DAILY 05/22/19 01/12/20 History tramadol 50 mg PO Q6H PRN #7 tab 05/22/19 01/12/20 Rx triamcinolone acetonide 1 applic TOPICAL BID 05/22/19 01/12/20 History calcium carbonate-vitamin D3 1 tab PO BID 01/12/20 01/12/20 History [Calcium 500 + D] citalopram 10 mg PO HS 01/12/20 01/12/20 History duloxetine 20 mg PO HS 01/12/20 01/12/20 History miconazole nitrate 1 applic TOPICAL DAILY PRN 01/12/20 01/12/20 History Patient History Medical History Anemia (Chronic) Anxiety (Chronic) Asthma (Chronic) Carpal tunnel syndrome (Chronic) Chronic kidney disease (CKD), stage III (moderate) (Chronic) Coronary artery disease (Chronic) "s/p NM, s/p PCI " Depression (Chronic) Diabetes mellitus, type 2 (Chronic) Diastolic CHF, chronic (Chronic) Dyslipidemia (Chronic) Elevated troponin (Acute) GERD (gastroesophageal reflux disease) (Chronic) History of cancer of vulva (Chronic) History of colon cancer (Chronic) History of herpes zoster (Chronic) Nonalcoholic fatty liver disease (Chronic) Obesity, Class III, 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) Osteoarthritis (Chronic) Pulmonary nodules (Chronic) "CT and PET 2011" Restless leg syndrome (Chronic) Sleep apnea (Chronic) Systolic CHF, chronic (Chronic) "LVEF 35%" Surgical History Status post cardiac catheterization (Chronic) Status post cholecystectomy (Chronic) Status post coronary artery stent placement (Chronic) Status post hysterectomy (Chronic) Status post partial colectomy (Chronic) "colon Ca" Family History Other Family history non-contributory Social History Preferred Language: Maltese Communication Ability: Effective Band Presser Required: No Beliefs That Will Affect Care: None marital status: Current Living Situation: Spouse Other Information That Helps Us Care for You: No Feels Safe at Home: Yes Safety Concerns: Feels Safe At This Time Smoking Status: Never smoker Hx Alcohol Use: No Hx Substance Use: No Review of Systems Review of Systems: All systems reviewed & are unremarkable except as noted in HPI & below Physical Exam Physical Exam: General: Awake, alert and oriented x self. No acute distress. HEENT: Normocephalic, atraumatic. Pupils equal, round and reactive to light and accommodation. Extraocular muscles are intact. Anicteric sclera. Moist mucous membranes. Neck: No JVD. No bruit. Cardiovascular: Regular. Positive S-4. Normal S-1 and S-2. No S-3. 3/6 mid to late systolic ejection murmur, greatest at the right sternal border, second intercostal space with radiation to the bilateral carotids. No rubs. Pulmonary: Clear to auscultation bilaterally. No rales, rhonchi, or wheezing. Abdomen: Bowel sounds x 4, soft. No rebound, guarding or tenderness. No organomegaly. Extremities: No clubbing, cyanosis or edema. +2 pedal pulses bilaterally. Skin: Warm and dry. Results & Data ([facility]) Vital Signs (Past 12 Hours) Vital Signs Temp Pulse Resp BP Pulse Ox 01/13/20 11:20 36.7 C 87 20 122/77 97 01/13/20 07:48 36.5 C 87 20 160/91 H 98 01/13/20 04:08 36.9 C 81 18 142/79 H 98 Laboratory Results Laboratory Results - last 24 hr 01/12/20 01/12/20 01/13/20 18:00 20:28 02:04 WBC RBC Hgb Hct MCV MCH MCHC RDW Std Deviation RDW Coeff of [place] Plt Count MPV Immature Gran % (Auto) Neut % (Auto) Lymph % (Auto) [place] % (Auto) Eos % (Auto) Baso % (Auto) Immature Gran # (Auto) Neut # (Auto) Lymph # (Auto) [place] # (Auto) Eos # (Auto) Baso # (Auto) PT 16.2 H INR 1.6 H APTT 30.1 PTT Ratio 1.1 Sodium Potassium Chloride Carbon Dioxide Anion Gap BUN Creatinine Est Cr Clr Drug Dosing Est GFR ( Amer) Est GFR (Non-Af Amer) BUN/Creatinine Ratio Glucose POC Glucose 119 H Calcium Phosphorus Magnesium Troponin I 2.000 H* Digoxin 01/13/20 01/13/20 01/13/20 03:40 03:40 03:40 WBC 5.85 RBC 4.97 Hgb 14.9 Hct 45.6 MCV 91.8 MCH 30.0 MCHC 32.7 RDW Std Deviation 47.2 H RDW Coeff of Park 14.1 Plt Count 161 MPV 11.8 H Immature Gran % (Auto) 0.5 Neut % (Auto) 61.3 Lymph % (Auto) 23.8 [place] % (Auto) 12.6 Eos % (Auto) 1.5 Baso % (Auto) 0.3 Immature Gran # (Auto) 0.03 H Neut # (Auto) 3.58 Lymph # (Auto) 1.39 [place] # (Auto) 0.74 H Eos # (Auto) 0.09 Baso # (Auto) 0.02 PT 17.5 H INR 1.8 H APTT 30.8 PTT Ratio 1.1 Sodium 138 Potassium 3.9 Chloride 106 Carbon Dioxide 28 Anion Gap 4.0 BUN 17 Creatinine 1.44 H Est Cr Clr Drug Dosing 33.3 Est GFR ( Amer) 38.8 Est GFR (Non-Af Amer) 33.5 BUN/Creatinine Ratio 12.1 Glucose 102 H POC Glucose Calcium 8.7 Phosphorus 3.4 Magnesium 2.1 Troponin I Digoxin 01/13/20 01/13/20 01/13/20 03:40 07:34 11:03 WBC RBC Hgb Hct MCV MCH MCHC RDW Std Deviation RDW Coeff of [place] Plt Count MPV Immature Gran % (Auto) Neut % (Auto) Lymph % (Auto) [place] % (Auto) Eos % (Auto) Baso % (Auto) Immature Gran # (Auto) Neut # (Auto) Lymph # (Auto) [place] # (Auto) Eos # (Auto) Baso # (Auto) PT INR APTT 71.5 H* PTT Ratio 2.6 Sodium Potassium Chloride Carbon Dioxide Anion Gap BUN Creatinine Est Cr Clr Drug Dosing Est GFR ( Amer) Est GFR (Non-Af Amer) BUN/Creatinine Ratio Glucose POC Glucose 107 H Calcium Phosphorus Magnesium Troponin I Digoxin 0.3 L 01/13/20 01/13/20 12:00 16:14 WBC RBC Hgb Hct MCV MCH MCHC RDW Std Deviation RDW Coeff of [place] Plt Count MPV Immature Gran % (Auto) Neut % (Auto) Lymph % (Auto) [place] % (Auto) Eos % (Auto) Baso % (Auto) Immature Gran # (Auto) Neut # (Auto) Lymph # (Auto) [place] # (Auto) Eos # (Auto) Baso # (Auto) PT INR APTT PTT Ratio Sodium Potassium Chloride Carbon Dioxide Anion Gap BUN Creatinine Est Cr Clr Drug Dosing Est GFR ( Amer) Est GFR (Non-Af Amer) BUN/Creatinine Ratio Glucose POC Glucose 125 H 165 H Calcium Phosphorus Magnesium Troponin I Digoxin Medications Administered Current Inpatient Medications Acetaminophen (Tylenol) 650 mg PO Q4H PRN PRN Reason: Pain or Fever Stop: 02/11/20 18:05 Albuterol (Ventolin Hfa) 2 puffs INH Q4 PRN PRN Reason: Shortness Of Breath Or Wheezing Stop: 02/11/20 20:17 Aspirin (Ecotrin Ectab) 81 mg PO QAM [facility] Stop: 02/12/20 08:59 Last Admin: 01/13/20 10:30 Dose: 81 mg Documented by: Citalopram Hydrobromide (Celexa) 10 mg PO [facility] Stop: 02/11/20 21:29 Last Admin: 01/12/20 21:45 Dose: 10 mg Documented by: Clopidogrel Bisulfate (Plavix) [address] [facility] Stop: 02/12/20 08:59 Last Admin: 01/13/20 10:30 Dose: 75 mg Documented by: Dextrose (Dextrose 50%) 25 - 50 ml IV UD PRN; Protocol PRN Reason: Hypoglycemia Protocol Stop: 02/12/20 09:37 Digoxin (Lanoxin) 0.125 mg PO MoWeFr@1600 [facility] Stop: 02/12/20 15:59 Last Admin: 01/13/20 16:13 Dose: 0.125 mg Documented by: Duloxetine HCl (Cymbalta) 20 mg PO [facility] Stop: 02/11/20 21:04 Last Admin: 01/12/20 21:45 Dose: 20 mg Documented by: Famotidine (Pepcid) [address] [facility] Stop: 02/12/20 20:59 Furosemide (Lasix) 40 mg PO MoWeFr@0900 [facility] Stop: 02/12/20 08:59 Last Admin: 01/13/20 10:31 Dose: 40 mg Documented by: Gabapentin (Neurontin) [address] [facility] Stop: 02/11/20 20:59 Last Admin: 01/13/20 10:31 Dose: 300 mg Documented by: Glucagon (Glucagen) 1 mg SQ UD PRN; Protocol PRN Reason: Hypoglycemia Protocol Stop: 02/12/20 09:37 Glucose (Dex4 Glucose) 4 - 8 tabs PO UD PRN; Protocol PRN Reason: Hypoglycemia Protocol Stop: 02/12/20 09:37 Glucose (Glucose 40%) 15 - 30 gm PO UD PRN; Protocol PRN Reason: Hypoglycemia Protocol Stop: 02/12/20 09:37 Insulin Aspart (Novolog Flexpen) [address] [facility] Stop: 02/12/20 16:29 Insulin Glargine (Lantus Solostar Pen) [address] [facility]; Protocol Stop: 02/12/20 20:59 Isosorbide Mononitrate (Imdur Extended Rel) [address] [facility] Stop: 02/12/20 20:59 Metoprolol Succinate (Toprol Xl) 50 mg PO DAILY [facility] Stop: 02/12/20 08:59 Last Admin: 01/13/20 10:30 Dose: 50 mg Documented by: Miconazole Nitrate (Desenex) 1 appln TOP DAILY PRN PRN Reason: Rash Stop: 02/11/20 20:17 Miscellaneous (Carbohydrates For Hypoglycemia) 15 - 30 gm PO UD PRN PRN Reason: Hypoglycemia Protocol Stop: 02/12/20 09:37 Morphine Sulfate (Morphine Sulfate) 2 mg IV Q30M PRN PRN Reason: Chest Pain Stop: 01/26/20 18:05 Multivitamins/Minerals (Caltrate Plus) 1 tab PO BIDM [facility] Stop: 02/12/20 07:59 Last Admin: 01/13/20 16:13 Dose: 1 tab Documented by: Nitroglycerin (Nitrostat) 0.4 mg SL UD PRN PRN Reason: Chest Pain Stop: 02/11/20 18:05 Pantoprazole Sodium (Protonix) [address] [facility] Stop: 02/12/20 20:59 Polyethylene Glycol (Miralax Powder Packet) 17 gm PO DAILY PRN PRN Reason: Constipation Stop: 02/11/20 18:05 Quetiapine Fumarate (Seroquel) [address] [facility] Stop: 02/11/20 20:59 Last Admin: 01/12/20 21:15 Dose: 25 mg Documented by: Rosuvastatin Calcium (Crestor) 20 mg PO DAILY [facility] Stop: 02/12/20 08:59 Last Admin: 01/13/20 10:30 Dose: 20 mg Documented by: Sennosides (Senokot) 8.6 mg PO DAILY PRN PRN Reason: Constipation Stop: 02/11/20 20:17 Spironolactone (Aldactone) 12.[address] [facility] Stop: 02/12/20 08:59 Last Admin: 01/13/20 10:30 Dose: 12.5 mg Documented by: Tramadol HCl (Ultram) 50 mg PO Q6H PRN PRN Reason: pain Stop: 02/11/20 20:17 Triamcinolone Acetonide (Kenalog 0.1%) 1 appln TOP BID [facility] Stop: 02/11/20 20:59 Last Admin: 03/02/20 10:34 Dose: 1 appln Documented by: Warfarin Sodium (Coumadin) 1 mg PO Q2D@1600 [facility] Stop: 02/11/20 20:17 Last Admin: 01/12/20 21:15 Dose: 1 mg Documented by: Warfarin Sodium (Coumadin) 2 mg PO Q2D@1600 [facility] Stop: 02/12/20 15:59 Last Admin: 01/13/20 16:13 Dose: 2 mg Documented by:
[2020-01-13] MEDS ORDERED: COLCHICINE 0.6 MG TAB PO SCH (15:25)
[2020-01-13] MEDS ORDERED: WARFARIN SOD 2 MG TAB PO SCH (16:00)
[2020-01-13] MEDS ORDERED: DIGOXIN 0.125 MG TAB PO SCH (16:00)
[2020-01-13] MEDS ORDERED: IBUPROFEN 600 MG TAB PO SCH (16:00)
[2020-01-13] MEDS: INSULIN ASPART 100 UNITS/ML 3 ML PEN SC SCH ×2 (17:40→21:39)
[2020-01-13] MEDS: INSULIN GLARGINE SOLOSTAR 100 UNITS/ML 3 ML PEN SC SCH (21:40)
[2020-01-13] MEDS: DULOXETINE HCL 20 MG CAP PO SCH (21:45)
[2020-01-13] MEDS: CITALOPRAM 20 MG TAB PO SCH (21:45)
[2020-01-13] MEDS: FAMOTIDINE 20 MG TAB PO SCH (21:47)
[2020-01-13] MEDS: ISOSORBIDE MONO EXTENDED REL 30 MG TABCR PO SCH (21:47)
[2020-01-13] MEDS: QUETIAPINE FUMARATE 25 MG TABLET PO SCH (21:47)
[2020-01-13] MEDS: PANTOprazole 40 MG TAB PO SCH (21:49)
[2020-01-13] MEDS ORDERED: OLANZapine 10 MG/2.1 ML SDV IM ONE (23:30)
[2020-01-13] MEDS ORDERED: OLANZapine 10 MG/2.1 ML SDV IM PRN (23:31)
--- NOTE | 2020-01-13 23:31 | Communication Note ---
Date of Service: January 13, 2020
--- NOTE | 2020-01-14 04:32 | Hospitalist Progress Note ---
Date of Service January 13, 2020 Assessment & Plan (1) Chest pain: (2) Coronary artery disease: (3) Elevated troponin: 84 year-old female, with history of CAD, status post prior coronary intervention to the LAD, left circumflex, RCA, history of A. fib on Coumadin, diastolic CHF/chronic, diabetes mellitus type 2, hypertension, hyperlipidemia, dementia who presents with chest pain. Pt presents w/ hx of left sided chest pain at rest earlier today, now resolved - trop elevated (in setting of CKD), cont. to trend - Afib on EKG, rate controlled - will admit to telemetry -cardiology notified by ED provider -received ASA 324 mg in the ED - pt on coumadin for Afib, says she is takes her coumadin regularly - INR not available at this time (sample hemolyzed), will follow - pt on ASA and plavix at home for hx of CAD - also takes metoprolol succinate, lasix, spironolactone and isosorbide mono nitrate - pt seen by Dr. Knight (chair caner) on 12/24/2019 - at that time no change in meds, pt was doing well - denies any other associated symptoms such as shortness of breath, diaphoresis, nausea, there was no radiation of pain anywhere, CP felt like pressure - on my exam, pt is holding her LUQ abdomen, but denies any current pain, granddaughter insists she was holding her left chest earlier - obtained KUB to eval poss. abd. pain, pt is very poor historian d/t dementia, relies on family to provide history - KYB negative - troponin elevated overnight to 2, INR subtherapeutic at 1.8, IV heparin started by liquid center assembler, echo ordered by cardiology - evaluated by cardiology, echo shows new small pericardial effusion, and no new wall motion abnormalities, not likely acute ischemia, but comb. of angina and likely GERD, medications for angina and GERD adjusted (4) Diastolic CHF, chronic: - proBNP wnl, no pulm. edema on CXR, no incr. volume status on physical exam - cont. home metoprolol succinate, lasix, spironolactone - well compensated at this time (5) Atrial fibrillation: - rate controlled - on digoxin, coumadin - INR not available yet (sample in ED hemolyzed) - INR subtherap., pt started on IV heparin overnight, cont. to follow (6) Dyslipidemia: - cont. rosuvastatin (7) Diabetes mellitus, type 2: - on insulin at home (NPH), will cont. - will monitor (8) GERD (gastroesophageal reflux disease): - cont. PPI - may have some abd. discomfort (hx is unclear from pt), will obtain KUB - KUB negative - medication for GERD adjusted (9) Chronic kidney disease (CKD), stage III (moderate): CKD stage 3-4 - follows in CKD clinic - renal function seems to be at baseline - try to avoid nephrotoxic agents - cont. to monitor (10) Obesity, Class III, BMI 40-49.9 (morbid obesity): - lifestyle modification encouraged Admission and Anticipated Discharge Date Admission Date: January 12, 2020 Subjective Overnight, troponin elevated to 2, INR subtherapeutic at 1.8, started on IV heparin by liquid center assembler. Echo ordered by cardiology. Pt is currently lying in bed, in NAD. Denies any chest pain, shortness of breath, abd. pain, nausea, or vomiting. Also denies any dizziness, lightheadedness, fevers or chills. Review of Systems Review of Systems: All systems reviewed & are unremarkable except as noted in HPI & below Constitutional: no fever and no chills Respiratory: no cough and no dyspnea Cardiovascular: no chest pain and no palpitations Gastrointestinal: no abdominal pain, no nausea and no vomiting Physical Exam Constitutional: well developed, well nourished and + obese; no acute distress Eyes: PERRL, conjunctivae normal, anicteric sclerae EOM intact bilaterally ENMT: external ear and nose normal, oropharynx normal Neck: trachea midline, no thyromegaly Respiratory: normal respiratory effort, lungs clear to auscultation Auscultation: + wheezes (mild diffuse); no crackles and no rhonchi Cardiovascular: RRR, no murmur, no edema Chest (Breasts): Chest: normal inspection of chest Gastrointestinal (Abdomen): Inspection/Auscultation: abdomen normal to inspection and normal bowel sounds; abdomen not distended Percussion/Palpation: abdomen soft; abdomen nontender, no guarding and abdomen not rigid Musculoskeletal: no cyanosis or clubbing, extremities motor strength 5/5 Head/Neck/Chest: normocephalic, head atraumatic and neck supple Skin: no rashes, warm and dry Neurologic: PERRL, EOMI, accommodation nl, no face palsy, no dysarthria moves all extremities Psychiatric: A+Ox3, euthymic affect Genitourinary: no CVA tenderness Lymphatic: no cervical or axillary lymphadenopathy Results & Data ([facility]) Vital Signs (Past 12 Hours) Vital Signs Temp Pulse Pulse Resp BP Pulse Ox 01/13/20 19:12 36.8 C 83 18 143/82 H 94 01/13/20 16:48 99 H Laboratory Results reviewed Medications Administered reviewed
[2020-01-14 06:36] LABS: Hematocrit (blood only) 47.2 % (37-47); Hemoglobin 15.4 g/dL (12.0-16.0); Mean Corpuscular Hemoglobin 30.3 pg (25-34); Mean Corpuscular Hgb Conc 32.6 g/dL (32-36); Mean Corpuscular Volume 92.7 fL (80-100); Mean Platelet Volume 11.8 fL (7.4-10.4); Platelet Count 169 K/uL (130-400); RDW Coefficient of Variation 14.2 % (11.5-14.5); RDW Standard Deviation 48.2 fL (36.4-46.3); Red Blood Count 5.09 M/uL (4.2-5.4); White Blood Count 6.27 K/uL (4.8-10.8)
[2020-01-14 06:44] LABS: INR 1.7 (0.9-1.1); Prothrombin Time 16.5 Seconds (9.0-12.0)
[2020-01-14 07:03] LABS: BUN Creatinine Ratio 10.7 (10-20); Calcium 9.3 mg/dl (8.5-10.1); Creatinine Clr Calc Pharmacy 24.9 ml/min; Est GFR (African American) 27.2; Est GFR (Non-African American) 23.5; Potassium 3.6 mmol/L (3.5-5.1)
--- NOTE | 2020-01-14 07:26 | Hospitalist Progress Note ---
Date of Service January 14, 2020 Assessment & Plan Admission and Anticipated Discharge Date Admission Date: January 12, 2020 Subjective CR elevated today Results & Data ([facility]) Vital Signs (Past 12 Hours) Vital Signs Temp Pulse Pulse Resp BP Pulse Ox 01/14/20 04:00 36.6 C 94 H 16 105/71 94 01/14/20 00:00 91 H Laboratory Results 01/14/20 01/14/20 01/14/20 Range/Units 06:06 06:06 06:06 WBC 6.27 (4.8-10.8) K/uL RBC 5.09 (4.2-5.4) M/uL Hgb 15.4 (12.0-16.0) g/dL Hct 47.2 H (37-47) % MCV 92.7 (80-100) fL MCH 30.3 (25-34) pg MCHC 32.6 (32-36) g/dL RDW Std Deviation 48.2 H (36.4-46.3) fL RDW Coeff of [place] 14.2 (11.5-14.5) % Plt Count 169 (130-400) K/uL MPV 11.8 H (7.4-10.4) fL PT 16.5 H (9.0-12.0) Seconds INR 1.7 H (0.9-1.1) APTT (21.0-31.0) Seconds PTT Ratio Sodium 136 (136-145) mmol/L Potassium 3.6 (3.5-5.1) mmol/L Chloride 101 (98-107) mmol/L Carbon Dioxide 26 (21-32) mmol/L Anion Gap 9.0 (3-11) BUN 21 H (7-18) mg/dl Creatinine 1.93 H D (0.6-1.2) mg/dl Est Cr Clr Drug Dosing 24.9 ml/min Est GFR ( Amer) 27.2 Est GFR (Non-Af Amer) 23.5 BUN/Creatinine Ratio 10.7 (10-20) Glucose 222 H (70-99) mg/dl POC Glucose (70-99) mg/dl Calcium 9.3 (8.5-10.1) mg/dl Magnesium 2.0 (1.8-2.4) mg/dl 01/13/20 01/13/20 01/13/20 Range/Units 20:18 16:14 12:00 WBC (4.8-10.8) K/uL RBC (4.2-5.4) M/uL Hgb (12.0-16.0) g/dL Hct (37-47) % MCV (80-100) fL MCH (25-34) pg MCHC (32-36) g/dL RDW Std Deviation (36.4-46.3) fL RDW Coeff of [place] (11.5-14.5) % Plt Count (130-400) K/uL MPV (7.4-10.4) fL PT (9.0-12.0) Seconds INR (0.9-1.1) APTT (21.0-31.0) Seconds PTT Ratio Sodium (136-145) mmol/L Potassium (3.5-5.1) mmol/L Chloride (98-107) mmol/L Carbon Dioxide (21-32) mmol/L Anion Gap (3-11) BUN (7-18) mg/dl Creatinine (0.6-1.2) mg/dl Est Cr Clr Drug Dosing ml/min Est GFR ( Amer) Est GFR (Non-Af Amer) BUN/Creatinine Ratio (10-20) Glucose (70-99) mg/dl POC Glucose 200 H 165 H 125 H (70-99) mg/dl Calcium (8.5-10.1) mg/dl Magnesium (1.8-2.4) mg/dl 01/13/20 01/13/20 Range/Units 11:03 07:34 WBC (4.8-10.8) K/uL RBC (4.2-5.4) M/uL Hgb (12.0-16.0) g/dL Hct (37-47) % MCV (80-100) fL MCH (25-34) pg MCHC (32-36) g/dL RDW Std Deviation (36.4-46.3) fL RDW Coeff of [place] (11.5-14.5) % Plt Count (130-400) K/uL MPV (7.4-10.4) fL PT (9.0-12.0) Seconds INR (0.9-1.1) APTT 71.5 H* (21.0-31.0) Seconds PTT Ratio 2.6 Sodium (136-145) mmol/L Potassium (3.5-5.1) mmol/L Chloride (98-107) mmol/L Carbon Dioxide (21-32) mmol/L Anion Gap (3-11) BUN (7-18) mg/dl Creatinine (0.6-1.2) mg/dl Est Cr Clr Drug Dosing ml/min Est GFR ( Amer) Est GFR (Non-Af Amer) BUN/Creatinine Ratio (10-20) Glucose (70-99) mg/dl POC Glucose 107 H (70-99) mg/dl Calcium (8.5-10.1) mg/dl Magnesium (1.8-2.4) mg/dl
[2020-01-14] MEDS: FAMOTIDINE 20 MG TAB PO SCH (08:38)
[2020-01-14] MEDS: METOPROLOL SUCC 50MG EXT REL TAB PO SCH (08:38)
[2020-01-14] MEDS: PANTOprazole 40 MG TAB PO SCH (08:39)
[2020-01-14] MEDS: CLOPIDOGREL BISULFATE 75 MG TAB PO SCH (08:39)
[2020-01-14] MEDS: ASPIRIN 81 MG ECTAB PO SCH (08:39)
[2020-01-14] MEDS: ISOSORBIDE MONO EXTENDED REL 30 MG TABCR PO SCH (08:39)
[2020-01-14] MEDS: SPIRONOLACTONE 25 MG TAB PO SCH (08:39)
[2020-01-14] MEDS: CALCIUM 600MG + VIT D 400 IU TAB PO SCH (08:39)
[2020-01-14] MEDS: GABAPENTIN 300 MG CAP PO SCH (08:39)
[2020-01-14] MEDS: ROSUVASTATIN CALCIUM 20 MG TAB PO SCH (08:40)
[2020-01-14] MEDS: INSULIN GLARGINE SOLOSTAR 100 UNITS/ML 3 ML PEN SC SCH (08:41)
[2020-01-14] MEDS: TRIAMCINOLONE ACET 0.1% CR 15 GM TUBE TOP SCH (08:41)
[2020-01-14] MEDS: INSULIN ASPART 100 UNITS/ML 3 ML PEN SC SCH ×2 (08:44→12:38)
[2020-01-14 12:42] LABS: Appearance Urine Clear (Clear); Bacteria Urine Automated 1+ (Negative); Bilirubin Urine Negative (Negative); Blood Urine Negative (Negative); Cast Urine Automated 0 /lpf (0-5); Color Urine Yellow; Epithelial Cell Urine Auto >30 /lpf (0-5); Glucose Urine UA 1+ (Negative); Ketones Urine Trace (Negative); Leukocyte Esterase Urine Trace (Negative); Nitrite Urine Negative (Negative); Protein Urine Negative (Negative); RBC Urine Automated 0-4 /hpf (0-4); Specific Gravity Urine 1.016 (1.000-1.030); Urobilinogen Urine Negative (Negative); pH Urine 5.5 (4.5-7.5)
--- NOTE | 2020-01-14 13:02 | Cardiology Progress Note ---
Date of Service January 14, 2020 Assessment & Plan (1) Chest pain: No recurrences of chest discomfort after increasing Imdur and further treatment for GERD. No further ischemic work-up is necessary at this time. Recommend discharged home on current medication regimen. Recommend follow-up with PCP as outpatient and cardiology as already scheduled. Okay to discharge from a cardiac standpoint. (2) Elevated troponin: Again, do not see any active ischemia Likely myocardial strain due to chronic stable angina Treatment as above (3) Diastolic CHF, chronic: Stable, does not appear as volume overload at this time. (4) Pericardial effusion: Small loculated anterior pericardial effusion Again symptoms are not consistent with pericardial pain Given her GERD I would avoid using NSAIDs at this time. (5) Coronary artery disease: Extensive history but stable at this time (6) Dementia: (7) Atrial fibrillation: Chronic, rate controlled Continue warfarin therapy with a goal INR of 2-3 Subjective Patient seen and examined, very somnolent this a.m. Daughter at bedside again majority of history obtained per daughter. No events reported overnight. Patient has not had any recurrences of chest discomfort since medication titrations have been made yesterday. Denies shortness of breath, palpitations, lightheadedness, dizziness or syncope. Telemetry reviewed shows normal sinus rhythm without arrhythmia or significant ectopy. Review of Systems Review of Systems: All systems reviewed & are unremarkable except as noted in HPI & below Physical Exam Physical Exam: General: Awake, alert and oriented x 3. No acute distress. HEENT: Normocephalic, atraumatic. Pupils equal, round and reactive to light and accommodation. Extraocular muscles are intact. Anicteric sclera. Moist mucous membranes. Neck: No JVD. No bruit. Cardiovascular: Regular. Positive S-4. Normal S-1 and S-2. No S-3. 3/6 mid to late systolic ejection murmur, greatest at the right sternal border, second intercostal space with radiation to the bilateral carotids. No rubs. Pulmonary: Clear to auscultation bilaterally. No rales, rhonchi, or wheezing. Abdomen: Bowel sounds x 4, soft. No rebound, guarding or tenderness. No organomegaly. Extremities: No clubbing, cyanosis or edema. +2 pedal pulses bilaterally. Skin: Warm and dry. Results & Data Vital Signs (Past 12 Hours) Vital Signs Temp Pulse Resp BP Pulse Ox 01/14/20 11:11 36.6 C 88 18 139/75 95 01/14/20 07:30 36.6 C 88 19 158/90 H 96 01/14/20 04:00 36.6 C 94 H 16 105/71 94
--- NOTE | 2020-01-14 14:23 | Discharge Summary ---
Date of Service January 14, 2020 Admission HPI Per Admitting Provider 84 year-old female, with history of CAD, status post prior coronary intervention to the LAD, left circumflex, RCA, history of A. fib on Coumadin, diastolic CHF/chronic,CKD stage 3-4, diabetes mellitus type 2, hypertension, hyperlipidemia, dementia who presents with chest pain. Patient is alert and awake, however history is mostly obtained from her family members, especially her granddaughter who is a family medicine PA. Patient has history of dementia and is unable to provide proper history. Per family, patient woke up this morning and had some discomfort at left chest area. She then got up and had breakfast, and it seemed to bother her more, so she called her granddaughter (who is currently at the bedside). Her granddaughter states that she called her around 1 PM and she arrived at pt's house around 2 PM and at that time it was still bothering her. Patient at that time pointed to left chest area, and said it felt like pressure/heaviness, it did not radiate anywhere. She often gets indigestion, and discomfort is usually relieved by taking Tums and Maalox. She took Tums and Maalox however it did not quite go away right away. She does not remember when the pain stopped however she says that she does not have any right now. Her granddaughter took her vital signs at home, and says that she was stable her O2 saturation on room air was 98%, heart rate in the 70s, blood pressure 118/62. She also did not complain about any shortness of breath, diaphoresis, nausea. The pt's granddaughter says that patient "gets winded" easily. Patient's confirms that patient is mostly in a wheelchair, gets up to the bathroom and back, and she never takes stairs. Her granddaughter report similar incident 2 weeks ago when pt had similar presentation, took tums, maalox and nitro and pain was relieved. Pt did not take nitro this time. She saw her used equipment sales representative, Dr. Knight on 12/24/2019, at that time there were no medications changes, per Dr. Knight's note, pt's volume status was improved (less edema) and overall she was doing well. In the ED she received ASA 324 mg, cardiology was contacted and ED physician was instructed to call for admission, and that pt will be seen by cardiology tomorro w, no further acute management at this time. Discharge Data Allergies Allergy/AdvReac Type Severity Reaction Status Date / Time Sulfa (Sulfonamide Allergy Unknown HIVES Unverified 01/12/20 16:43 Antibiotics) Consultations 01/12/20 16:45 ED Decision to Admit Stat 01/13/20 07:45 Consult Cardiology Routine Ordered Studies 01/14/20 11:24 US renal/blad retro comp Urgent Discharge Plan Discharge Items Patient Disposition: Home - Self-Care Reason For Visit: CHEST PAIN Discharge Diagnosis: Atypical chest pain, likely due to chronic stable angina and GERD Pericardial effusion (small) GERD BRENDA on CKD stage III Activity: As commented below Non-emergency contact: Primary Care Provider and [employer]er Call non-emergency contact if: you have any medication questions and your symptoms worsen Follow-up/Referrals: Camila Olson MD [Primary Care Provider] - Diet: Carb Consistent or DM2 and Heart Healthy Addtl Attending Provider Instructions: Follow up with your primary care doctor in next 2-3 days (I recommend before the weekend). Have a blood work done to check your kidney function - BMP, and your INR. Have your primary care doctor follow up on urine culture - urine sample obtained this morning (01/14/2020). Your Creatinine was elevated at 1.9 this AM, probably because you did not eat/drink much yesterday. If your kidney function is worsening, you may need further evaluation. In addition, your INR was slightly below 2, and therefore not therapeutic, you should have your INR checked as well. Take 2 mg of warfarin tonight (01/14/2020) and then continue taking as prescribed until you are instructed otherwise by your doctor. Your Imdur was increased to twice a day, and so was your Protonix. New medication was added to your regimen to help with acid reflux, famotidine, please pick it up in your pharmacy and take as prescribed. Please bring this hospital discharge paperwork with you to your primary care doctor appointment so they can review it. Thank you! It was a pleasure taking care of you! Dr. Bishnu Martínez Pending Studies at Discharge: Yes Studies:: urine culture Stand-Alone Forms: [employer], Smoking Cessation Medications and DC Order Prescriptions: New famotidine 20 mg Tablet 20 mg PO BID 30 Days Qty: 60 RF: 0 Continued gabapentin 300 mg capsule 300 mg PO BID RF: 0 clopidogrel [Plavix] 75 mg Tablet 75 mg PO QAM RF: 0 nitroglycerin [Nitrostat] 0.4 mg Tablet, Sublingual 0.4 mg Sublingual UD PRN (Reason: Chest Pain) RF: 0 furosemide [Lasix] 40 mg Tablet 40 mg PO 3XWK RF: 0 rosuvastatin 20 mg tablet 20 mg PO DAILY RF: 0 metoprolol succinate 50 mg tablet extended release 24 hr 50 mg PO DAILY RF: 0 digoxin 125 mcg tablet 125 mcg PO 3XWK RF: 0 quetiapine 25 mg tablet 25 mg PO HS RF: 0 insulin NPH and regular human 100 unit/mL (70-30) suspension 44 unit subcut BID RF: 0 warfarin 2 mg tablet 1 mg PO Q OTHER DAY RF: 0 warfarin 2 mg tablet 2 mg PO Q OTHER DAY RF: 0 sennosides [senna] 8.6 mg Tablet 8.6 mg PO DAILY PRN (Reason: Constipation) RF: 0 albuterol sulfate 90 mcg/actuation Hfa Aerosol Inhaler 2 puff INHALATION Q4 PRN (Reason: Shortness Of Breath Or Wheezing) RF: 0 citalopram 10 mg tablet 10 mg PO HS RF: 0 miconazole nitrate 2 % Powder 1 applic TOPICAL DAILY PRN (Reason: Rash) RF: 0 calcium carbonate-vitamin D3 [Calcium 500 + D] 500 mg(1,250mg) -200 unit Tablet 1 tab PO BID RF: 0 duloxetine 20 mg Capsule,Delayed Release(Dr/Ec) 20 mg PO HS RF: 0 triamcinolone acetonide 0.1 % Cream 1 applic TOPICAL BID RF: 0 spironolactone 25 mg Tablet 12.5 mg PO DAILY RF: 0 acetaminophen [Tylenol Arthritis Pain] 650 mg Tablet Extended Release 650 mg PO Q8H PRN (Reason: PAIN) RF: 0 tramadol 50 mg tablet 50 mg PO Q6H PRN (Reason: pain) Qty: 7 RF: 0 Changed pantoprazole 40 mg Tablet,Delayed Release (Dr/Ec) 40 mg PO BID Qty: 0 RF: 0 isosorbide mononitrate 30 mg tablet extended release 24 hr 30 mg PO BID Qty: 0 RF: 0 Discharge Orders: Discharge Order (Routine); Ordered 01/14/20 Ordered By: Bishnu Martínez Admission Data Admit Date/Time: 01/12/20 18:09 Attending Provider: Bishnu Martínez Admit Provider: Bishnu Martínez Primary Care Provider: Camila Olson Other Providers: Bishnu Martínez ; Bean Hurtado
== END 2020-01-14 14:45 | disposition home or self-care (01) | DRG 313 ==
LOC: ED 15:15 → 2S 18:09

== ENCOUNTER 2020-09-23 12:49 | Inpatient (IN) ==
[2020-09-23 13:43] LABS: Basophils # (auto) 0.01 K/uL (0-0.2); Basophils % (auto) 0.2 %; Eosinophils # (auto) 0.04 K/uL (0-0.5); Eosinophils % (auto) 0.8 %; Hematocrit (blood only) 45.9 % (37-47); Hemoglobin 14.4 g/dL (12.0-16.0); Lymphocytes # (auto) 0.94 K/uL (1.2-3.4); Mean Corpuscular Hemoglobin 27.8 pg (25-34); Mean Corpuscular Hgb Conc 31.4 g/dL (32-36); Mean Corpuscular Volume 88.6 fL (80-100); Mean Platelet Volume 10.9 fL (7.4-10.4); Monocytes # (auto) 0.68 K/uL (0.11-0.59); Neutrophils # (auto) 3.56 K/uL (1.4-6.5); Platelet Count 186 K/uL (130-400); RDW Coefficient of Variation 15.5 % (11.5-14.5); Red Blood Count 5.18 M/uL (4.2-5.4); White Blood Count 5.23 K/uL (4.8-10.8)
[2020-09-23 13:54] LABS: INR 2.5 (0.9-1.1); Partial Thromboplastin Ratio 1.4; Partial Thromboplastin Time 38.7 Seconds (21.0-31.0); Prothrombin Time 24.7 Seconds (9.0-12.0)
--- NOTE | 2020-09-23 13:54 | XRay Report ---
XR chest 1V portable CLINICAL HISTORY: Atypical chest pain. COMPARISON STUDY: Chest radiograph January 12, 2020. FINDINGS: Lung volumes are normal. There is no pneumothorax or pleural effusion. There is no consolid ation or evidence for pulmonary edema. Mild cardiomegaly is unchanged. There is mitral annular calcif ication. Linear left basilar opacity reflects atelectasis. The appearance of the chest is unchanged. IMPRESSION: No acute cardiopulmonary findings. No change in appearance of the chest. ACT 112: Negative or not required by law. Electronically signed by: Artie Hassan M.D. 09/23/2020 1:53 PM
[2020-09-23 14:00] LABS: Alanine Aminotransferase 17 U/L (12-78); Albumin Level 3.7 gm/dl (3.4-5.0); Aspartate Aminotransferase 15 U/L (15-37); Blood Urea Nitrogen 14 mg/dl (7-18); Carbon Dioxide 27 mmol/L (21-32); Chloride 108 mmol/L (98-107); Est GFR (Non-African American) 27.6; Glucose 107 mg/dl (70-99); Lipase 74 U/L (73-393); Potassium 4.1 mmol/L (3.5-5.1); Sodium 142 mmol/L (136-145)
--- NOTE | 2020-09-23 14:03 | Emergency Department Note ---
Impression & Plan Abdominal pain, Chest pain, Elevated INR, CKD (chronic kidney disease) ED Provider Note NAME: ALMA HOFFMANN AGE: 84 SEX: F : [phone] ARRIVES VIA: Walk-In INFORMANT: Patient ED PROVIDER(S): Theo Gutierrez DO CHIEF COMPLAINT: Abdominal Pain HPI: Patient is an 84-year-old female who presents the ER for epigastric abdominal pain. She notes it has been present for the past 3 to 4 days. She does have a history of dementia. She denies any chest pain or new shortness of breath. No nausea, vomiting or diarrhea. No dysuria, urgency or frequency. She does have a history of dementia. History is obtained from the patient as well as patient's [id number]. She was seen at [facility] and was referred in for further evaluation. ROS: See above HPI for pertinent positives & negatives. A total of 10 systems reviewed and were otherwise negative. PAST MEDICAL HISTORY:See Below PAST SURGICAL HISTORY:See Below FAMILY HISTORY:See Below SOCIAL HISTORY:See Below HOME MEDICATIONS:See Below ALLERGIES:See Below VITALS:See Below PHYSICAL EXAMINATION: GENERAL: Sitting up in bed, alert, well appearing, well nourished, no distress, non-toxic EYE EXAM: normal conjunctiva. OROPHARYNX: no exudate, no erythema, lips, buccal mucosa, and tongue normal and mucous membranes are moist NECK: supple, no nuchal rigidity, no adenopathy, non-tender LUNGS: Clear to auscultation. Normal chest wall mechanics HEART: no murmurs, S1 normal and S2 normal ABDOMEN: abdomen soft, tenderness in epigastric region, normo-active bowel sounds, no masses, no rebound or guarding. UPPER EXTREMITIES: upper extremities are grossly normal. LOWER EXTREMITIES: No pitting edema. NEURO EXAM: Oriented to person and place but confused, cranial nerves II-XII grossly intact, normal speech, no gross weakness of arms, no gross weakness of legs. MEDICAL DECISION MAKING: Patient is an 84-year-old female who is demented the presents the ER for a bdominal pain and possible chest pain. IV was established blood work was obtained. Labs show no significant leukocytosis or anemia. INR was therapeutic at 2.5. BMP with a slightly elevated chloride. Creatinine was consistent with previous at 1.7. LFTs bilirubin was unremarkable. Troponin was elevated 0.145 consistent with previous. Lipase was normal. Dig was low. Chest x-ray was unremarkable. CT abdomen pelvis shows no acute pathology. EKG did show new ST wave changes in the lateral leads. Did give a dose of aspirin. With history is difficult to ascertain what exactly is going on as she is demented. She was discussed with the who is agreeable with observation. She was given a dose of Ativan secondary to agitation and she did not want to stay. Triage Nursing notes reviewed. Prior medical records reviewed Vital Signs: reviewed and remarkable for HTN Differential diagnosis: Differential diagnoses includes but is not limited to gastritis, peptic ulcer disease, GERD, gallbladder disease, pancreatitis, small bowel obstruction, acute coronary syndrome, pericarditis, ischemic bowel, irritable bowel disease, irrita ble bowel syndrome, appendicitis, diverticulitis, malignancy, hernia, urinary tract infection, torsion, perforation, trauma, infectious. ER treatment provided: See below Diagnostics interpreted by me: ECG: A. fib rate 78 Left axis No PVCs Nonspecific ST wave changes in the lateral leads QTC 442 Cardiac Monitoring: An order was placed for continuous cardiac monitoring. The monitor shows a rate of 74 with sinus rhythm. Laboratory studies: As stated above and show below. Imaging studies: CT abdomen pelvis shows no acute pathology Portable AP upright 1 view the chest shows no focal infiltrate Consultation(s): D/w Dr. Manley for further eval ED COURSE: Procedures: none Critical Care: None Past Med/Surg History Medical History (Updated 09/23/20 @ 19:23 by Theo Gutierrez DO) Anemia Anxiety Asthma Carpal tunnel syndrome Chronic kidney disease (CKD), stage III (moderate) Coronary artery disease "s/p DE, s/p PCI " Depression Diabetes mellitus, type 2 Diastolic CHF, chronic Dyslipidemia Elevated troponin GERD (gastroesophageal reflux disease) History of cancer of vulva History of colon cancer History of herpes zoster Nonalcoholic fatty liver disease Obesity, Class III, BMI 40-49.9 (morbid obesity) Osteoarthritis Pulmonary nodules "CT and PET 2011" Restless leg syndrome Sleep apnea Systolic CHF, chronic "LVEF 35%" Surgical History Status post cardiac catheterization Status post cholecystectomy Status post coronary artery stent placement Status post hysterectomy Status post partial colectomy "colon Ca" Family History Son Diabetes Brother Coronary heart disease Mother Myocardial infarction Father Stroke Other Family history non-contributory Social History Smoking Status: Never smoker Hx Alcohol Use: No Hx Substance Use: No Preferred Language: Tamazight Communication Ability: Effective Material Expeditor Required: No Beliefs That Will Affect Care: None marital status: Current Living Situation: Spouse How many Children do You have: 2 Feels Safe at Home: Yes Assistive Devices: None Allergies Allergies Allergy/AdvReac Type Severity Reaction Status Date / Time Sulfa (Sulfonamide Allergy Unknown HIVES Unverified 09/23/20 15:55 Antibiotics) Home Meds Home Medications Medication Instructions Recorded Confirmed clopidogrel [Plavix] 75 mg PO QAM 11/20/18 09/23/20 gabapentin 300 mg PO BID 11/20/18 09/23/20 albuterol sulfate 2 puff INHALATION Q4 PRN 11/21/18 09/23/20 digoxin 125 mcg PO MOWEFR 11/21/18 09/23/20 furosemide [Lasix] 40 mg PO 4XWK 11/21/18 09/23/20 insulin NPH and regular human See Rx Instructions .ROUTE .COMPLEX 11/21/18 09/23/20 nitroglycerin [Nitrostat] 0.4 mg SUBLINGUAL UD PRN 11/21/18 09/23/20 rosuvastatin 20 mg PO DAILY 11/21/18 09/23/20 sennosides [senna] 8.6 mg PO DAILY PRN 11/21/18 09/23/20 warfarin 1 mg PO SUTUWETHFRSA 11/21/18 09/23/20 warfarin 2 mg PO MO 11/21/18 09/23/20 acetaminophen [Tylenol Arthritis 650 mg PO Q8H PRN 05/22/19 09/23/20 Pain] spironolactone 12.5 mg PO DAILY 05/22/19 09/23/20 triamcinolone acetonide 1 applic TOPICAL BID 05/22/19 09/23/20 calcium carbonate-vitamin D3 1 tab PO BID 01/12/20 09/23/20 [Calcium 500 + D] citalopram 10 mg PO HS 01/12/20 09/23/20 duloxetine 20 mg PO HS 01/12/20 09/23/20 miconazole nitrate 1 applic TOPICAL DAILY PRN 01/12/20 09/23/20 metoprolol succinate 25 mg PO DAILY 09/23/20 09/23/20 tramadol 50 mg PO Q8H PRN 09/23/20 09/23/20 Previous Rx's Medication Instructions Recorded isosorbide mononitrate 30 mg PO BID #0 tab 01/14/20 pantoprazole 40 mg PO BID #0 tab 01/14/20 Results & Data (ED) Vital Signs Vital Signs - 24 hr 09/23/20 12:57 09/23/20 14:24 09/23/20 14:28 Temperature 36.9 C Temperature Source Oral Pulse Rate 85 81 86 Pulse Rate [Apical] Pulse Rate from SpO2 Sensor Respiratory Rate 18 24 24 Respiratory Effort / Characteristics Respiratory Depth Blood Pressure 176/104 H 189/112 H Blood Pressure [Right Arm] Blood Pressure Mean 128 121 Blood Pressure Mean [Right Arm] Blood Pressure Position [Right Arm] Pulse Oximetry 96 Oxygen Delivery Method Room Air Sepsis Recent Fever Within 48 Hours No Sepsis New/Unexplained Change in Mental Status No Sepsis Action Taken by Nursing No Action Required 09/23/20 14:30 09/23/20 14:38 09/23/20 15:00 Temperature Temperature Source Pulse Rate 88 94 H Pulse Rate [Apical] 92 H Pulse Rate from SpO2 Sensor 97 H Respiratory Rate 22 20 25 H Respiratory Effort / Characteristics Respiratory Depth Blood Pressure 143/114 H Blood Pressure [Right Arm] 143/114 H Blood Pressure Mean 119 Blood Pressure Mean [Right Arm] 123 Blood Pressure Position [Right Arm] Pulse Oximetry 96 Oxygen Delivery Method Room Air Sepsis Recent Fever Within 48 Hours Sepsis New/Unexplained Change in Mental Status Sepsis Action Taken by Nursing 09/23/20 15:01 09/23/20 15:30 09/23/20 15:31 Temperature Temperature Source Pulse Rate 92 H 87 88 Pulse Rate [Apical] Pulse Rate from SpO2 Sensor 91 H 111 H 94 H Respiratory Rate 22 23 24 Respiratory Effort / Characteristics Respiratory Depth Blood Pressure 222/110 H 176/93 H Blood Pressure [Right Arm] Blood Pressure Mean 140 124 Blood Pressure Mean [Right Arm] Blood Pressure Position [Right Arm] Pulse Oximetry 96 Oxygen Delivery Method Sepsis Recent Fever Within 48 Hours Sepsis New/Unexplained Change in Mental Status Sepsis Action Taken by Nursing 09/23/20 16:00 09/23/20 16:30 09/23/20 16:31 Temperature Temperature Source Pulse Rate 97 H 103 H 89 Pulse Rate [Apical] Pulse Rate from SpO2 Sensor 100 H Respiratory Rate 32 H 26 H 31 H Respiratory Effort / Characteristics Respiratory Depth Blood Pressure 153/101 H 201/117 H Blood Pressure [Right Arm] Blood Pressure Mean 121 139 Blood Pressure Mean [Right Arm] Blood Pressure Position [Right Arm] Pulse Oximetry Oxygen Delivery Method Sepsis Recent Fever Within 48 Hours Sepsis New/Unexplained Change in Mental Status Sepsis Action Taken by Nursing 09/23/20 16:53 09/23/20 16:54 09/23/20 16:55 Temperature Temperature Source Pulse Rate 90 107 H Pulse Rate [Apical] 103 H Pulse Rate from SpO2 Sensor 116 H 106 H Respiratory Rate 24 23 28 H Respiratory Effort / Characteristics Non-Labored Spontaneous Respiratory Depth Normal Blood Pressure 231/139 H 192/136 H Blood Pressure [Right Arm] 192/136 H Blood Pressure Mean 194 165 Blood Pressure Mean [Right Arm] 154 Blood Pressure Position [Right Arm] Sitting Pulse Oximetry 96 96 96 Oxygen Delivery Method Room Air Sepsis Recent Fever Within 48 Hours Sepsis New/Unexplained Change in Mental Status Sepsis Action Taken by Nursing 09/23/20 16:57 09/23/20 17:00 09/23/20 17:01 Temperature Temperature Source Pulse Rate 100 H 100 H 97 H Pulse Rate [Apical] Pulse Rate from SpO2 Sensor 109 H 102 H 102 H Respiratory Rate 24 24 21 Respiratory Effort / Characteristics Respiratory Depth Blood Pressure 222/99 H 185/109 H Blood Pressure [Right Arm] Blood Pressure Mean 175 127 Blood Pressure Mean [Right Arm] Blood Pressure Position [Right Arm] Pulse Oximetry 95 94 96 Oxygen Delivery Method Sepsis Recent Fever Within 48 Hours Sepsis New/Unexplained Change in Mental Status Sepsis Action Taken by Nursing 09/23/20 17:30 Temperature Temperature Source Pulse Rate 98 H Pulse Rate [Apical] Pulse Rate from SpO2 Sensor Respiratory Rate Respiratory Effort / Characteristics Respiratory Depth Blood Pressure Blood Pressure [Right Arm] Blood Pressure Mean Blood Pressure Mean [Right Arm] Blood Pressure Position [Right Arm] Pulse Oximetry Oxygen Delivery Method Sepsis Recent Fever Within 48 Hours Sepsis New/Unexplained Change in Mental Status Sepsis Action Taken by Nursing Laboratory Data Result diagrams: 09/23/20 13:35 09/23/20 13:35 Lab Results 09/23/20 09/23/20 09/23/20 Range/Units 13:35 13:35 13:35 WBC 5.23 (4.8-10.8) K/uL RBC 5.18 (4.2-5.4) M/uL Hgb 14.4 (12.0-16.0) g/dL Hct 45.9 (37-47) % MCV 88.6 (80-100) fL MCH 27.8 (25-34) pg MCHC 31.4 L (32-36) g/dL RDW Std Deviation 49.0 H (36.4-46.3) fL RDW Coeff of [place] 15.5 H (11.5-14.5) % Plt Count 186 (130-400) K/uL MPV 10.9 H (7.4-10.4) fL Immature Gran % (Auto) 0.0 % Neut % (Auto) 68.0 % Lymph % (Auto) 18.0 % [place] % (Auto) 13.0 % Eos % (Auto) 0.8 % Baso % (Auto) 0.2 % Neut # (Auto) 3.56 (1.4-6.5) K/uL Lymph # (Auto) 0.94 L (1.2-3.4) K/uL [place] # (Auto) 0.68 H (0.11-0.59) K/uL Eos # (Auto) 0.04 (0-0.5) K/uL Baso # (Auto) 0.01 (0-0.2) K/uL Immature Gran # (Auto) 0.00 (0.00-0.02) K/uL PT 24.7 H (9.0-12.0) Seconds INR 2.5 H (0.9-1.1) APTT 38.7 H (21.0-31.0) Seconds PTT Ratio 1.4 Sodium 142 (136-145) mmol/L Potassium 4.1 (3.5-5.1) mmol/L Chloride 108 H (98-107) mmol/L Carbon Dioxide 27 (21-32) mmol/L Anion Gap 7.0 (3-11) BUN 14 (7-18) mg/dl Creatinine 1.69 H (0.6-1.2) mg/dl Est Cr Clr Drug Dosing Not Reportable Est GFR ( Amer) 32.0 Est GFR (Non-Af Amer) 27.6 BUN/Creatinine Ratio 8.0 L (10-20) Glucose 107 H (70-99) mg/dl POC Glucose (70-99) mg/dl Calcium 9.0 (8.5-10.1) mg/dl Total Bilirubin 0.8 (0.2-1) mg/dl AST 15 (15-37) U/L ALT 17 (12-78) U/L Alkaline Phosphatase 80 (45-117) U/L Troponin I 0.145 H* (0-0.045) ng/ml Total Protein 7.7 (6.4-8.2) gm/dl Albumin 3.7 (3.4-5.0) gm/dl Globulin 4.0 (2.5-4.0) gm/dl Albumin/Globulin Ratio 0.9 (0.9-2) Lipase 74 (73-393) U/L Digoxin (0.8-2.0) ng/ml 09/23/20 09/23/20 Range/Units 13:35 16:33 WBC (4.8-10.8) K/uL RBC (4.2-5.4) M/uL Hgb (12.0-16.0) g/dL Hct (37-47) % MCV (80-100) fL MCH (25-34) pg MCHC (32-36) g/dL RDW Std Deviation (36.4-46.3) fL RDW Coeff of [place] (11.5-14.5) % Plt Count (130-400) K/uL MPV (7.4-10.4) fL Immature Gran % (Auto) % Neut % (Auto) % Lymph % (Auto) % [place] % (Auto) % Eos % (Auto) % Baso % (Auto) % Neut # (Auto) (1.4-6.5) K/uL Lymph # (Auto) (1.2-3.4) K/uL [place] # (Auto) (0.11-0.59) K/uL Eos # (Auto) (0-0.5) K/uL Baso # (Auto) (0-0.2) K/uL Immature Gran # (Auto) (0.00-0.02) K/uL PT (9.0-12.0) Seconds INR (0.9-1.1) APTT (21.0-31.0) Seconds PTT Ratio Sodium (136-145) mmol/L Potassium (3.5-5.1) mmol/L Chloride (98-107) mmol/L Carbon Dioxide (21-32) mmol/L Anion Gap (3-11) BUN (7-18) mg/dl Creatinine (0.6-1.2) mg/dl Est Cr Clr Drug Dosing Est GFR ( Amer) Est GFR (Non-Af Amer) BUN/Creatinine Ratio (10-20) Glucose (70-99) mg/dl POC Glucose 107 H (70-99) mg/dl Calcium (8.5-10.1) mg/dl Total Bilirubin (0.2-1) mg/dl AST (15-37) U/L ALT (12-78) U/L Alkaline Phosphatase (45-117) U/L Troponin I (0-0.045) ng/ml Total Protein (6.4-8.2) gm/dl Albumin (3.4-5.0) gm/dl Globulin (2.5-4.0) gm/dl Albumin/Globulin Ratio (0.9-2) Lipase (73-393) U/L Digoxin 0.6 L (0.8-2.0) ng/ml Administered Medications Discontinued Medications Aspirin (Aspirin Chew 324 Mg) 324 mg PO NOW STA Stop: 09/23/20 15:39 Last Admin: 09/23/20 16:05 Dose: 324 mg Documented by: [id number] Lorazepam (Ativan) 1 mg in 2 mls @ 2 mls/min IV NOW STA Stop: 09/23/20 16:35 Last Admin: 09/23/20 17:06 Dose: 2 mls/min Documented by: [id number] Ceftriaxone Sodium (Rocephin) 2,000 mg in 70 mls @ 140 mls/hr IV NOW STA Stop: 09/23/20 17:34 Last Infusion: 09/23/20 18:09 Dose: 0 mls/hr Documented by: [id number] Admin: 09/23/20 17:26 Dose: 140 mls/hr Documented by: [id number] Ioversol (Ioversol 100ml) 94 ml IV ONCE ONE Stop: 09/23/20 15:11 Last Admin: 09/23/20 15:11 Dose: 94 ml Documented by: [id number] Discharge Plan Visit Data Chief Complaint: Chest Pain Stated Complaint: CHEST PAINS, REF BY DOCTOR ED Provider: Theo Gutierrez Discharge Problem: Abdominal pain, Chest pain, Elevated INR, CKD (chronic kidney disease) Forms Stand Alone Forms: My [facility] Prescriptions Prescriptions: No Action gabapentin 300 mg capsule 300 mg PO BID RF: 0 clopidogrel [Plavix] 75 mg Tablet 75 mg PO QAM RF: 0 nitroglycerin [Nitrostat] 0.4 mg Tablet, Sublingual 0.4 mg Sublingual UD PRN (Reason: Chest Pain) RF: 0 furosemide [Lasix] 40 mg Tablet 40 mg PO 4XWK RF: 0 rosuvastatin 20 mg tablet 20 mg PO DAILY RF: 0 digoxin 125 mcg tablet 125 mcg PO MOWEFR RF: 0 insulin NPH and regular human 100 unit/mL (70-30) suspension See Rx Instructions .ROUTE .COMPLEX RF: 0 warfarin 2 mg tablet 1 mg PO SUTUWETHFRSA RF: 0 warfarin 2 mg tablet 2 mg PO MO RF: 0 sennosides [senna] 8.6 mg Tablet 8.6 mg PO DAILY PRN (Reason: Constipation) RF: 0 albuterol sulfate 90 mcg/actuation Hfa Aerosol Inhaler 2 puff INHALATION Q4 PRN (Reason: Shortness Of Breath Or Wheezing) RF: 0 citalopram 10 mg tablet 10 mg PO HS RF: 0 miconazole nitrate 2 % Powder 1 applic TOPICAL DAILY PRN (Reason: Rash) RF: 0 calcium carbonate-vitamin D3 [Calcium 500 + D] 500 mg(1,250mg) -200 unit Tablet 1 tab PO BID RF: 0 duloxetine 20 mg Capsule,Delayed Release(Dr/Ec) 20 mg PO HS RF: 0 isosorbide mononitrate 30 mg tablet extended release 24 hr 30 mg PO BID Qty: 0 RF: 0 pantoprazole 40 mg Tablet,Delayed Release (Dr/Ec) 40 mg PO BID Qty: 0 RF: 0 triamcinolone acetonide 0.1 % Cream 1 applic TOPICAL BID RF: 0 spironolactone 25 mg Tablet 12.5 mg PO DAILY RF: 0 acetaminophen [Tylenol Arthritis Pain] 650 mg Tablet Extended Release 650 mg PO Q8H PRN (Reason: PAIN) RF: 0 metoprolol succinate 25 mg tablet extended release 24 hr 25 mg PO DAILY RF: 0 tramadol 50 mg tablet 50 mg PO Q8H PRN (Reason: pain) RF: 0 Discharge Problem: Abdominal pain Qualifiers: Abdominal location: unspecified location Qualified Code(s): R10.9 - Unspecified abdominal pain Chest pain Qualifiers: Chest pain type: unspecified Qualified Code(s): R07.9 - Chest pain, unspecified CKD (chronic kidney disease) Qualifiers: Chronic kidney disease stage: unspecified stage Qualified Code(s): N18.9 - Chronic kidney disease, unspecified
[2020-09-23 14:08] LABS: Albumin Globulin Ratio 0.9 (0.9-2); Alkaline Phosphatase 80 U/L (45-117); Bilirubin,Total 0.8 mg/dl (0.2-1); Total Protein 7.7 gm/dl (6.4-8.2); Troponin I 0.145 ng/ml (0-0.045)
[2020-09-23] MEDS ORDERED: IOVERSOL 100ml IV ONE (15:10)
--- NOTE | 2020-09-23 15:30 | CT Scan Report ---
CT OF THE ABDOMEN AND PELVIS WITH CONTRAST CLINICAL HISTORY: Abdominal pain. COMPARISON STUDY: KUB January 12, 2020. TECHNIQUE: Following IV administration of 94 mL of Optiray-320, axial images of the abdomen and pelvi s were obtained from the lung bases to the proximal femurs. Images were reviewed in the axial, sagitt al, and coronal planes. IV contrast was administered without complication. Automated exposure contro l was utilized for the study. A dose lowering technique was utilized adhering to the principles of A LEXY. CT DOSE: 1128.36 mGy.cm FINDINGS: Imaged portions of the lower chest demonstrate moderate cardiomegaly. There is extensive mi tral annular calcification. Coronary artery calcification is noted. There is no left ventricular apic al infarct. No pneumatosis, free air or portal venous gas is present. There is no biliary ductal dila tation status post cholecystectomy. Pancreatic glandular atrophy is noted. There is no peripancreatic infiltration or fluid. Trace perisplenic fluid is noted. A few renal cysts are noted. There is moder ate renal cortical thinning. There is no hydronephrosis. The caliber and wall thickness of small and large bowel are normal. Right colon resection is noted. There is no evidence for a bowel obstruction. There is a moderate amount of stool within the rectum. Colonic diverticulosis is noted without evide nce for acute diverticulitis. Extensive aortoiliac vascular calcification is noted. Severe osteoarthr itis of the left hip is noted. No acute fracture or suspicious lesion within the visualized skeletal structures. No abdominal or pelvic lymphadenopathy is present. IMPRESSION: 1. No acute process within the abdomen or pelvis. 2. Status post right colon resection. No evidence for a bowel obstruction. 3. Colonic diverticulosis without evidence for acute diverticulitis. 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 5. Trace perisplenic fluid. ACT 112: Negative or not required by law. Electronically signed by: Artie Hassan M.D. 09/23/2020 3:29 PM
[2020-09-23] MEDS ORDERED: ASPIRIN CHEW 324 MG PO STA (15:38)
--- NOTE | 2020-09-23 15:46 | History & Physical Report ---
Date of Service September 23, 2020 History of Present Illness Primary Care Provider: Camila Olson MD Allergies Allergy/AdvReac Type Severity Reaction Status Date / Time Sulfa (Sulfonamide Allergy Unknown HIVES Unverified 09/23/20 15:55 Antibiotics) Home Medications Home Medications Medication Instructions Recorded Confirmed Type clopidogrel [Plavix] 75 mg PO QAM 11/20/18 01/12/20 History gabapentin 300 mg PO BID 11/20/18 01/12/20 History albuterol sulfate 2 puff INHALATION Q4 PRN 11/21/18 01/12/20 History digoxin 125 mcg PO 3XWK 11/21/18 01/12/20 History furosemide [Lasix] 40 mg PO 3XWK 11/21/18 01/12/20 History insulin NPH and regular human 44 unit SUBCUT BID 11/21/18 01/12/20 History nitroglycerin [Nitrostat] 0.4 mg SUBLINGUAL UD PRN 11/21/18 01/12/20 History rosuvastatin 20 mg PO DAILY 11/21/18 01/12/20 History sennosides [senna] 8.6 mg PO DAILY PRN 11/21/18 01/12/20 History warfarin 1 mg PO Q OTHER DAY 11/21/18 01/12/20 History warfarin 2 mg PO Q OTHER DAY 11/21/18 01/12/20 History acetaminophen [Tylenol Arthritis 650 mg PO Q8H PRN 05/22/19 01/12/20 History Pain] spironolactone 12.5 mg PO DAILY 05/22/19 01/12/20 History triamcinolone acetonide 1 applic TOPICAL BID 05/22/19 01/12/20 History calcium carbonate-vitamin D3 1 tab PO BID 01/12/20 01/12/20 History [Calcium 500 + D] citalopram 10 mg PO HS 01/12/20 01/12/20 History duloxetine 20 mg PO HS 01/12/20 01/12/20 History miconazole nitrate 1 applic TOPICAL DAILY PRN 01/12/20 01/12/20 History isosorbide mononitrate 30 mg PO BID #0 tab 01/14/20 01/12/20 Rx pantoprazole 40 mg PO BID #0 tab 01/14/20 01/12/20 Rx metoprolol succinate 25 mg PO DAILY 09/23/20 09/23/20 History tramadol 50 mg PO Q8H PRN 09/23/20 09/23/20 History Past Med/Surg History Medical History Anemia Anxiety Asthma Carpal tunnel syndrome Chronic kidney disease (CKD), stage III (moderate) Coronary artery disease "s/p [place], s/p PCI " Depression Diabetes mellitus, type 2 Diastolic CHF, chronic Dyslipidemia Elevated troponin GERD (gastroesophageal reflux disease) History of cancer of vulva History of colon cancer History of herpes zoster Nonalcoholic fatty liver disease Obesity, Class III, BMI 40-49.9 (morbid obesity) Osteoarthritis Pulmonary nodules "CT and PET 2011" Restless leg syndrome Sleep apnea Systolic CHF, chronic "LVEF 35%" Surgical History Status post cardiac catheterization Status post cholecystectomy Status post coronary artery stent placement Status post hysterectomy Status post partial colectomy "colon Ca" Family History Son Diabetes Brother Coronary heart disease Mother Myocardial infarction Father Stroke Other Family history non-contributory Social History Smoking Status: Never smoker Hx Alcohol Use: No Hx Substance Use: No Preferred Language: Frisian Communication Ability: Effective Tanning Wheel Filler Required: No Beliefs That Will Affect Care: None marital status: Current Living Situation: Spouse How many Children do You have: 2 Feels Safe at Home: Yes Assistive Devices: None Review of Systems Review of Systems: All systems reviewed & are unremarkable except as noted in HPI & below Results & Data Results & Data ([facility]) Vital Signs (Past 12 Hours) Vital Signs Temp Pulse Pulse Resp BP BP Pulse Ox 09/23/20 15:00 95 09/23/20 14:38 92 H 20 143/114 H 09/23/20 12:57 36.9 C 85 18 176/104 H 96 Laboratory Results Short CBC 09/23/20 09/23/20 Range/Units 13:35 13:35 WBC 5.23 (4.8-10.8) K/uL Hgb 14.4 (12.0-16.0) g/dL Hct 45.9 (37-47) % Plt Count 186 (130-400) K/uL Creatinine 1.69 H (0.6-1.2) mg/dl BMP 09/23/20 13:35 Sodium 142 Potassium 4.1 Chloride 108 H Carbon Dioxide 27 BUN 14 Creatinine 1.69 H Glucose 107 H Calcium 9.0 Cardiac Enzymes 09/23/20 Range/Units 13:35 Troponin I 0.145 H* (0-0.045) ng/ml Liver Function 09/23/20 Range/Units 13:35 Total Bilirubin 0.8 (0.2-1) mg/dl AST 15 (15-37) U/L ALT 17 (12-78) U/L Alkaline Phosphatase 80 (45-117) U/L Albumin 3.7 (3.4-5.0) gm/dl Diagnostic Findings CXR: IMPRESSION: No acute cardiopulmonary findings. No change in appearance of the chest. CT abd/pelvis: IMPRESSION: 1. No acute process within the abdomen or pelvis. 2. Status post right colon resection. No evidence for a bowel obstruction. 3. Colonic diverticulosis without evidence for acute diverticulitis. 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 5. Trace perisplenic fluid. Medications Administered Discontinued Medications Ioversol (Ioversol 100ml) 94 ml IV ONCE ONE Stop: 09/23/20 15:11 Last Admin: 09/23/20 15:11 Dose: 94 ml Documented by: [id number] ECG Rate (beats per minute): 78 Rhythm: atrial fibrillation Comparison ECG Date: from (01/12/20) Change: the following changes noted Additional Comments: flattening of t waves V4-6, mild depression Code Status & VTE Plan Code Status Full Code VTE Prophylaxis Plan VTE Prophylaxis will be ordered: No Reason for no VTE drug order: Contraindicated Reason for no VTE mechanical prophylaxis: Contraindicated
[2020-09-23] MEDS ORDERED: LORazepam 1 MG/2 ML VIAL IV STA (16:34)
[2020-09-23] MEDS ORDERED: cefTRIAXone SODIUM 2,000 MG/70 ML BAG IV STA (17:05)
--- NOTE | 2020-09-23 17:46 | History & Physical Report ---
Date of Service September 23, 2020 Assessment & Plan Admission and Anticipated Discharge Date Admission Date: Confusion/delirium: Possible metabolic encephalopathy secondary to UTI versus dehydration Grossly positive Ordered for IV Rocephin Follow urine culture Fall precaution, Baseline dementia: Per family members patient developed severe sundowning delirium, combativeness IM Haldol for severe agitation Nursing to provide support and reorientation. Chronic A. fib, on chronic anticoagulation: INR therapeutic 2.5 continue Coumadin cKd stage III: Creatinine at baseline Mild elevation of troponin, Patient has chronically elevated troponin, given agitation and delirium serial troponin level check was not ordered No complaint of chest pain or shortness of breath at present Continue to monitor Abdominal pain: No further complaint, no nausea vomiting CT abdomen pelvis unremarkable CODE STATUS: Full code DVT prophylaxis: Subcu heparin Disposition: Patient will need PT OT evaluation prior to discharge Plan of care updated to patient's family daughter/[id number]/ at bedside History of Present Illness Chief Complaint: Pain/delirium Primary Care Provider: Camila Olson MD This is a 84-year-old female with complex past medical history of chronic A. fib, history of coronary artery disease diastolic CHF dementia. Was seen at her family physician's office today as she was not feeling well for past few days. She also complained of chest heaviness, dizzy spell, was asked to come to the ER for further evaluation. In the ER patient was very confused, agitated, delirious, wants to leave the ER, She has been asking repeatedly to sign paperwork /refused to be admitted in the hospital: As they do not do anything, Further history is limited due to patient's mental status. Patient's was present at bedside, reports at baseline patient has dementia, confusion, has not been eating and drinking well past 2 to 3 days. does not believe he will be able to take care of the patient at home, patient's was not able to sit up on her own in the ER. I spoke with patient's daughter over the phone, patient gets very confused, agitated, severe sundowning during her hospital stay. As there is no evidence of active or ongoing heart attack or cardiac issue noted on ER labs/studies. Family was hoping patient to be discharged to home from ER with p.o. antibiotics for possible UTI Plan of care discussed with ER physician, and patient's , patient was very deconditioned, generalized weakness, delirious, not safe to be discharged home with elderly . Patient got very combative, attempted to climb out of bed IV Ativan ordered by ER physician; required 4 persons to assist to administer as patient was constantly swinging at nursing staff. Patient will be admitted to medical telemetry, ordered as needed IM Haldol for agitation/scheduled Seroquel at bedtime Fall precaution, bed alarm Allergies Allergy/AdvReac Type Severity Reaction Status Date / Time Sulfa (Sulfonamide Allergy Unknown HIVES Unverified 09/23/20 15:55 Antibiotics) Home Medications Home Medications Medication Instructions Recorded Confirmed Type clopidogrel [Plavix] 75 mg PO QAM 11/20/18 09/23/20 History gabapentin 300 mg PO BID 11/20/18 09/23/20 History albuterol sulfate 2 puff INHALATION Q4 PRN 11/21/18 09/23/20 History digoxin 125 mcg PO MOWEFR 11/21/18 09/23/20 History furosemide [Lasix] 40 mg PO [id number] 11/21/18 09/23/20 History insulin NPH and regular human See Rx Instructions .ROUTE .COMPLEX 11/21/18 09/23/20 History nitroglycerin [Nitrostat] 0.4 mg SUBLINGUAL UD PRN 11/21/18 09/23/20 History rosuvastatin 20 mg PO DAILY 11/21/18 09/23/20 History sennosides [senna] 8.6 mg PO DAILY PRN 11/21/18 09/23/20 History warfarin 1 mg PO [id number] 11/21/18 09/23/20 History warfarin 2 mg PO MO 11/21/18 09/23/20 History acetaminophen [Tylenol Arthritis 650 mg PO Q8H PRN 05/22/19 09/23/20 History Pain] spironolactone 12.5 mg PO DAILY 05/22/19 09/23/20 History triamcinolone acetonide 1 applic TOPICAL BID 05/22/19 09/23/20 History calcium carbonate-vitamin D3 1 tab PO BID 01/12/20 09/23/20 History [Calcium 500 + D] citalopram 10 mg PO HS 01/12/20 09/23/20 History duloxetine 20 mg PO HS 01/12/20 09/23/20 History miconazole nitrate 1 applic TOPICAL DAILY PRN 01/12/20 09/23/20 History isosorbide mononitrate 30 mg PO BID #0 tab 01/14/20 09/23/20 Rx pantoprazole 40 mg PO BID #0 tab 01/14/20 09/23/20 Rx metoprolol succinate 25 mg PO DAILY 09/23/20 09/23/20 History tramadol 50 mg PO Q8H PRN 09/23/20 09/23/20 History Past Med/Surg History Medical History (Updated 09/23/20 @ 19:23 by Theo Gutierrez DO) Anemia Anxiety Asthma Carpal tunnel syndrome Chronic kidney disease (CKD), stage III (moderate) Coronary artery disease "s/p VT, s/p PCI " Depression Diabetes mellitus, type 2 Diastolic CHF, chronic Dyslipidemia Elevated troponin GERD (gastroesophageal reflux disease) History of cancer of vulva History of colon cancer History of herpes zoster Nonalcoholic fatty liver disease Obesity, Class III, BMI 40-49.9 (morbid obesity) Osteoarthritis Pulmonary nodules "CT and PET 2011" Restless leg syndrome Sleep apnea Systolic CHF, chronic "LVEF 35%" Surgical History Status post cardiac catheterization Status post cholecystectomy Status post coronary artery stent placement Status post hysterectomy Status post partial colectomy "colon Ca" Family History Son Diabetes Brother Coronary heart disease Mother Myocardial infarction Father Stroke Other Family history non-contributory Social History Smoking Status: Never smoker Hx Alcohol Use: No Hx Substance Use: No Preferred Language: Urdu Communication Ability: Effective Communication Ability Comment: unable to obtain due to confusion Director Nicu Required: No Beliefs That Will Affect Care: None marital status: Current Living Situation: Spouse Current Living Situation Comment: unable to obtain due to confusion How many Children do You have: 2 Feels Safe at Home: Yes Assistive Devices: None Assistive Devices Comment: unable to obtain due to confusion Review of Systems Review of Systems: Unobtainable due to cognitive status (Very agitated, confused, delirious) Physical Exam Constitutional: Agitated, angry Eyes: Unable to have any detailed physical exam as patient was not cooperative at all Respiratory: no respiratory distress and no cough Auscultation: + wheezes (Audible wheeze) Gastrointestinal (Abdomen): Percussion/Palpation: abdomen soft; abdomen nontender Neurologic: Patient remains very agitated, combative, does not allow any physical exam Psychiatric: Affect: + angry affect Thought Content: + paranoid and + delusions Results & Data Results & Data ([facility]) Vital Signs (Past 12 Hours) Vital Signs Temp Pulse Pulse Resp BP BP Pulse Ox 09/23/20 16:53 103 H 24 192/136 H 96 09/23/20 15:00 95 09/23/20 14:38 92 H 20 143/114 H 09/23/20 12:57 36.9 C 85 18 176/104 H 96 Code Status & VTE Plan VTE Prophylaxis Plan VTE Prophylaxis will be ordered: No
[2020-09-23] MEDS ORDERED: CARBOHYDRATES FOR HYPOGLYCEMIA PO PRN (20:55)
[2020-09-23] MEDS ORDERED: ACETAMINOPHEN 325 MG TAB PO PRN (20:55)
[2020-09-23] MEDS ORDERED: GLUCOSE 40% GEL 15 GM TUBE PO PRN (20:55)
[2020-09-23] MEDS ORDERED: GLUCAGON FOR INJ 1 MG VIAL SQ PRN (20:55)
[2020-09-23] MEDS ORDERED: POLYETHYLENE (MIRALAX) 17 GM PACK PO PRN (20:55)
[2020-09-23] MEDS ORDERED: ONDANSETRON INJ 2 MG/ML 2 ML VIAL IV PRN (20:55)
[2020-09-23] MEDS ORDERED: INSULIN HUMAN NPH SC SCH (20:55)
[2020-09-23] MEDS ORDERED: DEXTROSE 50% 50 ML SYRINGE IV PRN (20:55)
[2020-09-23] MEDS ORDERED: GLUCOSE 10 TABS/TUBE PO PRN (20:55)
[2020-09-23] MEDS ORDERED: MICONAZOLE NITRATE POWDER 43 GM EXT PRN (21:27)
[2020-09-23] MEDS ORDERED: PHARMACY GLYCEMIC MGMT CONSULT PRN (21:44)
[2020-09-23] MEDS: PANTOprazole 40 MG TAB PO SCH ×2 (22:04→22:13)
[2020-09-23] MEDS: ISOSORBIDE MONO EXTENDED REL 30 MG TABCR PO SCH ×2 (22:04→22:13)
[2020-09-23] MEDS: GABAPENTIN 300 MG CAP PO SCH ×2 (22:05→22:13)
[2020-09-23] MEDS: DULoxetine HCL 20 MG CAP PO SCH ×2 (22:05→22:13)
[2020-09-23] MEDS ORDERED: ALBUT/IPRATROP 3MG/0.5MG NEB 3 ML VIAL NEB PRN (22:13)
[2020-09-23] MEDS: DIGOXIN 0.125 MG TAB PO SCH (22:33)
[2020-09-23] MEDS: CITALOPRAM 20 MG TAB PO SCH (22:33)
[2020-09-23] MEDS: QUEtiapine FUMARATE 25 MG TABLET PO SCH (22:33)
[2020-09-23] MEDS: WARFARIN SOD 1 MG TAB PO SCH (22:33)
[2020-09-23] MEDS: CALCIUM 600MG + VIT D 400 IU TAB PO SCH (22:33)
[2020-09-23 22:55] LABS: Appearance Urine Clear (Clear); Bacteria Urine Automated Negative (Negative); Bilirubin Urine Negative (Negative); Blood Urine Trace (Negative); Color Urine Yellow; Epithelial Cell Urine Auto >30 /lpf (0-5); Glucose Urine UA Negative (Negative); Ketones Urine Trace (Negative); Leukocyte Esterase Urine Negative (Negative); Nitrite Urine Negative (Negative); Specific Gravity Urine 1.023 (1.000-1.030); Urobilinogen Urine Negative (Negative); pH Urine 8.5 (4.5-7.5)
[2020-09-23] MEDS ORDERED: INSULIN GLARGINE SOLOSTAR 100 UNITS/ML 3 ML PEN SC SCH (23:00)
[2020-09-23 23:04] LABS: Protein Urine Negative (Negative); Sulfosalicylic Acid Urine Negative (Negative)
[2020-09-24] MEDS: INSULIN ASPART 100 UNITS/ML 3 ML PEN SC SCH ×5 (00:35→21:19)
[2020-09-24] MEDS: HALOPERIDOL LACTATE 5 MG/ML 1 ML VIAL IM PRN ×2 (01:53→12:37)
[2020-09-24] MEDS ORDERED: INSULIN ASPART 100 UNITS/ML 3 ML PEN SC SCH (02:00)
[2020-09-24] MEDS ORDERED: HALOPERIDOL LACTATE 5 MG/ML 1 ML VIAL IM STA (03:21)
[2020-09-24] MEDS ORDERED: LORazepam 0.5 MG/1 ML VIAL IV STA (03:43)
[2020-09-24] MEDS ORDERED: METOPROLOL TARTRATE 1 MG/ML VIAL IV STA ×2 (04:02→08:59)
[2020-09-24] MEDS: CALCIUM 600MG + VIT D 400 IU TAB PO SCH ×3 (08:29→21:21)
[2020-09-24] MEDS: CLOPIDOGREL BISULFATE 75 MG TAB PO SCH ×2 (08:29→10:18)
[2020-09-24] MEDS: ISOSORBIDE MONO EXTENDED REL 30 MG TABCR PO SCH ×3 (08:29→21:21)
[2020-09-24] MEDS: METOPROLOL SUCC 25MG EXT REL TAB PO SCH ×2 (08:29→10:18)
[2020-09-24] MEDS: SPIRONOLACTONE 12.5 MG TAB PO SCH ×2 (08:29→10:17)
[2020-09-24] MEDS: ROSUVASTATIN CALCIUM 20 MG TAB PO SCH ×2 (08:29→10:17)
[2020-09-24] MEDS: PANTOprazole 40 MG TAB PO SCH ×3 (08:29→21:22)
[2020-09-24] MEDS: GABAPENTIN 300 MG CAP PO SCH ×3 (08:29→21:20)
[2020-09-24] MEDS: INSULIN GLARGINE SOLOSTAR 100 UNITS/ML 3 ML PEN SC SCH (09:30)
[2020-09-24 09:37] LABS: Estimated Average Glucose 157 mg/dl; Hemoglobin A1C 7.1 % (4.5-5.6)
[2020-09-24 09:45] LABS: Hematocrit (blood only) 53.7 % (37-47); Hemoglobin 17.2 g/dL (12.0-16.0); Mean Corpuscular Hemoglobin 28.2 pg (25-34); Mean Corpuscular Volume 88.2 fL (80-100); Mean Platelet Volume 11.1 fL (7.4-10.4); Platelet Count 172 K/uL (130-400); RDW Coefficient of Variation 15.5 % (11.5-14.5); Red Blood Count 6.09 M/uL (4.2-5.4)
[2020-09-24 09:49] LABS: INR 2.9 (0.9-1.1); Prothrombin Time 28.9 Seconds (9.0-12.0)
[2020-09-24 09:58] LABS: BUN Creatinine Ratio 8.6 (10-20); Blood Urea Nitrogen 13 mg/dl (7-18); Carbon Dioxide 21 mmol/L (21-32); Chloride 106 mmol/L (98-107); Est GFR (African American) 36.1; Est GFR (Non-African American) 31.1; Glucose 192 mg/dl (70-99); Magnesium 2.1 mg/dl (1.8-2.4); Potassium 3.6 mmol/L (3.5-5.1); Sodium 138 mmol/L (136-145)
--- NOTE | 2020-09-24 10:28 | Electrocardiogram Report ---
Test Reason : Blood Pressure : / mmHG Vent. Rate : 078 BPM Atrial Rate : 088 BPM P-R Int : 000 ms QRS Dur : 078 ms QT Int : 388 ms P-R-T Axes : 000 -58 179 degrees QTc Int : 442 ms Atrial fibrillation Left axis deviation Anteroseptal infarct (cited on or before 09-JUN-2016) Abnormal ECG When compared with ECG of 12-JAN-2020 15:25, Questionable change in initial forces of Septal leads Nonspecific T wave abnormality, worse in Lateral leads Confirmed by Aubrey Arriaza ([id number]) on 09/24/2020 10:28:09 AM Referred By: Confirmed By:Aubrey Arriaza
--- NOTE | 2020-09-24 10:54 | Electrocardiogram Report ---
Test Reason : Blood Pressure : / mmHG Vent. Rate : 120 BPM Atrial Rate : 144 BPM P-R Int : 000 ms QRS Dur : 086 ms QT Int : 352 ms P-R-T Axes : 000 -43 101 degrees QTc Int : 497 ms Atrial fibrillation with rapid ventricular response Left axis deviation Septal infarct (cited on or before 09-JUN-2016) Abnormal ECG When compared with ECG of 23-SEP-2020 13:23, (unconfirmed) Vent. rate has increased BY 42 BPM Questionable change in initial forces of Septal leads Confirmed by Aubrey Arriaza ([id number]) on 09/24/2020 10:54:10 AM Referred By: REFERRED SELF Confirmed By:Aubrey Arriaza
--- NOTE | 2020-09-24 10:58 | Electrocardiogram Report ---
Test Reason : Blood Pressure : / mmHG Vent. Rate : 109 BPM Atrial Rate : 000 BPM P-R Int : 000 ms QRS Dur : 082 ms QT Int : 350 ms P-R-T Axes : 000 -56 133 degrees QTc Int : 471 ms Poor data quality, interpretation may be adversely affected Atrial fibrillation with rapid ventricular response Left anterior fascicular block Septal infarct (cited on or before 09-JUN-2016) Abnormal ECG When compared with ECG of 24-SEP-2020 03:09, (unconfirmed) No significant change Confirmed by Aubrey Arriaza ([id number]) on 09/24/2020 10:57:44 AM Referred By: REFERRED SELF Confirmed By:Aubrey Arriaza
--- NOTE | 2020-09-24 14:46 | Pharmacy Report ---
Glycemic Control Consultation - Date of Service September 24, 2020 - Scope Scope: Glycemic Pharmacist consulted for glycemic control and to write orders per [facility] inpatient glycemic control protocol. - Objective Weight: 97.6 kg Accuchecks BSG (last 24hrs): 09/23/20 09/23/20 09/24/20 16:33 21:25 02:16 Glucose POC Glucose 107 H 150 H 141 H 09/24/20 09/24/20 09/24/20 07:55 09:20 12:01 Glucose 192 H POC Glucose 189 H 193 H Laboratory Data (last 24hrs): 09/24/20 09:20 Potassium 3.6 Carbon Dioxide 21 Anion Gap 11.0 Creatinine 1.53 H Est Cr Clr Drug Dosing Not Reportable HbA1c: Hemoglobin A1c 7.1 % (4.5-5.6) H 09/24/20 09:20 - Recent Pertinent Medications Outpatient Anti-diabetic Regimen: * Novolog Mix 70/30 - Injects 40 units with breakfast and 45 units with dinner * A1c = 7.1% (09/24/2020) Risk Factors for Insulin Resistance: * Infection: * CTX for UTI * Diet: * T2DM - Assessment & Plan Assessment & Plan: ASSESSMENT: * 84 yo F with baseline dementia and admitted with worsening mental status thought to be secondary to UTI. Pharmacy is consulted for inpatient glycemic management. * Patient refused all insulin last evening. Fasting BSG was 189 mg/dL this AM. Gave 15 units of Lantus this AM. * Holding off on mixed insulin while patient is not eating much * Lunchtime BSG was elevated at 193 mg/dL. Tightened Novolog parameters with lunch. PLAN FOR INPATIENT GLYCEMIC CONTROL: * Basal insulin * Lantus 15 units SQ x 1 * Bolus insulin * NovoLog per scale ACHS or Q6hrs while NPO * Goal Range: Low 110 mg/dL - High 140 mg/dL * Correction Factor: 20 mg/dL/unit * Nutritional / Prandial insulin per carb ratio of 1 unit per 7 grams CHO consumed * Please note that the plan above was derived based on current level of insulin resistance and hospital stress. These recommendations are appropriate for inpatient admission only. Plan of care upon discharge will need to be reassessed to avoid potential outpatient hypo/hyperglycemia. Thank you.
[2020-09-24] MEDS: WARFARIN SOD 1 MG TAB PO SCH (15:54)
[2020-09-24] MEDS: traZODone HCL 50 MG TAB PO PRN (15:56)
[2020-09-24] MEDS ORDERED: METOPROLOL TARTRATE 50 MG TAB PO STA (16:40)
[2020-09-24] MEDS: cefTRIAXone SODIUM 2,000 MG in DEXTROSE 5% 50 ML IV SCH (16:57)
--- NOTE | 2020-09-24 18:37 | Hospitalist Progress Note ---
Date of Service September 24, 2020 Assessment & Plan (1) Acute confusional state: She has history of dementia and presented with acute confusion Noted to be agitated and combative on admission Has been hallucinating at times Seems to be better this morning Will not give any benzodiazepines and/or narcotics Discussed with the daughter We will start trazodone 25 mg every 4 hourly as needed for agitation Trazodone 50 nightly Hypertensive urgency Blood pressure noted to be high this morning at 201/96 Beta-davin doses have been increased Possible UTI Has been getting intravenous Rocephin Will await culture and sensitivity (2) Dementia: (3) Chest pain: Presented with questionable chest pain Initial troponin minimally elevated She has chronically elevated troponin Did not have any EKG changes-doubt any ACS (4) Atrial fibrillation: Heart rate is controlled We will continue current medications (5) CKD (chronic kidney disease): (6) Systolic CHF, chronic: Remains euvolemic Advised more fluid intake but will not give any intravenous fluid (7) Abdominal pain: CT of the abdomen and pelvis remains unremarkable DVT prophylaxis Has been on Coumadin CODE STATUS Full Admission and Anticipated Discharge Date Admission Date: September 23, 2020 Subjective The patient was seen and examined in medical telemetry unit She is an 84-year-old female with significant history of dementia was admitted with acute confusion Remains confused as of this morning with occasional agitation Review of Systems Review of Systems: Unobtainable due to mental health condition Physical Exam Physical Exam: Lying in bed without any acute distress Constitutional: well developed, well nourished, + ill appearing and + obese Eyes: PERRL, conjunctivae normal, anicteric sclerae ENMT: external ear and nose normal, oropharynx normal Neck: trachea midline, no thyromegaly Respiratory: + respiratory distress (Minimal distress due to shortness of breath) Auscultation: + diminished lung sounds, + crackles (Minimal crackles at the bases) and + rhonchi Cardiovascular: Rate/Rhythm: + irregularly irregular Heart Sounds: + murmur (2/6 ESM over precordium) Gastrointestinal (Abdomen): Inspection/Auscultation: normal bowel sounds; abdomen not distended Percussion/Palpation: abdomen soft; abdomen nontender Psychiatric: Orientation: alert and cooperative; + not oriented x 3 Affect: + irritable affect Mood: + depressed mood Lymphatic: no cervical or axillary lymphadenopathy Results & Data Results & Data ([facility]) Vital Signs (Past 12 Hours) Vital Signs Temp Pulse Pulse Resp BP BP BP 09/24/20 15:55 93 H 09/24/20 15:24 36.8 C 108 H 20 201/96 H 09/24/20 12:04 36.7 C 119 H 26 H 184/99 H 09/24/20 09:24 110 H 169/88 H 09/24/20 07:39 117 H 09/24/20 07:11 36.9 C 119 H 20 193/75 H Pulse Ox 09/24/20 15:55 09/24/20 15:24 93 09/24/20 12:04 91 09/24/20 09:24 09/24/20 07:39 09/24/20 07:11 94 Laboratory Results Short CBC 09/24/20 Range/Units 09:20 WBC 7.70 (4.8-10.8) K/uL Hgb 17.2 H (12.0-16.0) g/dL Hct 53.7 H (37-47) % Plt Count 172 (130-400) K/uL BMP 09/24/20 09:20 Sodium 138 Potassium 3.6 Chloride 106 Carbon Dioxide 21 BUN 13 Creatinine 1.53 H Glucose 192 H Calcium 9.0 Urine 09/23/20 Range/Units 22:32 Urine Color Yellow Urine Appearance Clear (Clear) Urine pH 8.5 H (4.5-7.5) Ur Specific [place] 1.023 (1.000-1.030) Urine Protein Negative (Negative) Urine Glucose (UA) Negative (Negative) Medications Administered Current Inpatient Medications Acetaminophen (Acetaminophen 325 Mg Tab) 650 mg PO Q4H PRN PRN Reason: Pain or Fever Stop: 10/23/20 20:54 Albuterol (Albut/Ipratrop 3mg/0.5mg Neb 3 Ml Vial) 3 ml NEB Q4R PRN PRN Reason: wheeze Stop: 10/23/20 22:59 Last Admin: 09/24/20 04:15 Dose: 3 ml Documented by: Citalopram Hydrobromide (Citalopram 20 Mg Tab) 10 mg PO HS [facility] Stop: 10/23/20 21:29 Last Admin: 09/23/20 22:33 Dose: Not Given Documented by: Clopidogrel Bisulfate (Clopidogrel Bisulfate 75 Mg Tab) 75 mg PO QAM [facility] Stop: 10/24/20 08:59 Last Admin: 09/24/20 10:18 Dose: Not Given Documented by: Dextrose (Dextrose 50% 50 Ml Syringe) 25 - 50 ml IV UD PRN; Protocol PRN Reason: Hypoglycemia Protocol Stop: 10/23/20 20:54 Digoxin (Digoxin 0.125 Mg Tab) 0.125 mg PO [id number]@1600 [facility] Stop: 10/23/20 20:54 Last Admin: 09/23/20 22:33 Dose: Not Given Documented by: Duloxetine HCl (Duloxetine Hcl 20 Mg Cap) 20 mg PO HS [facility] Stop: 10/23/20 20:59 Last Admin: 09/23/20 22:13 Dose: Not Given Documented by: Gabapentin (Gabapentin 300 Mg Cap) 300 mg PO BID [facility] Stop: 10/23/20 20:59 Last Admin: 09/24/20 10:17 Dose: Not Given Documented by: Glucagon (Glucagon For Inj 1 Mg Vial) 1 mg SQ UD PRN; Protocol PRN Reason: Hypoglycemia Protocol Stop: 10/23/20 20:54 Glucose (Glucose 10 Tabs/Tube) 4 - 8 tabs PO UD PRN; Protocol PRN Reason: Hypoglycemia Protocol Stop: 10/23/20 20:54 Glucose (Glucose 40% Gel 15 Gm Tube) 15 - 30 gm PO UD PRN; Protocol PRN Reason: Hypoglycemia Protocol Stop: 10/23/20 20:54 Haloperidol Lactate (Haloperidol Lactate 5 Mg/Ml 1 Ml Vial) 5 mg IM Q8 PRN PRN Reason: Agitation Stop: 10/23/20 17:04 Last Admin: 09/24/20 12:37 Dose: 5 mg Documented by: Ceftriaxone Sodium 2,000 mg/ (Dextrose) 70 mls @ 100 mls/hr IV Q24H [facility]; Protocol Stop: 09/28/20 16:59 Last Infusion: 09/24/20 17:46 Dose: Infused Documented by: Insulin Aspart (Insulin Aspart 100 Units/Ml 3 Ml Pen) 0 units [facility]; Protocol Stop: 10/23/20 22:59 Last Admin: 09/24/20 17:22 Dose: 6 units Documented by: Insulin Glargine (Insulin Glargine Solostar 100 Units/Ml 3 Ml Pen) [address] [facility]; Protocol Stop: 10/23/20 22:59 Last Admin: 09/24/20 09:30 Dose: 15 units Documented by: Isosorbide Mononitrate (Isosorbide [place] Extended Rel 30 Mg Tabcr) 30 mg PO BID [facility] Stop: 10/23/20 20:59 Last Admin: 09/24/20 10:17 Dose: Not Given Documented by: Metoprolol Succinate (Metoprolol Succ 50mg Ext Rel Tab) 50 mg PO DAILY [facility] Stop: 10/25/20 08:59 Miconazole Nitrate (Miconazole Nitrate Powder 43 Gm) 1 appln EXT PRN PRN PRN Reason: Affected Skin Folds Stop: 10/23/20 21:26 Last Admin: 09/24/20 15:59 Dose: 1 appln Documented by: Miscellaneous (Carbohydrates For Hypoglycemia ) 15 - 30 gm PO UD PRN PRN Reason: Hypoglycemia Protocol Stop: 10/23/20 20:54 Miscellaneous Information (Pharmacy Glycemic Mgmt Consult) 1 ea N/A UD PRN; Protocol PRN Reason: Consult Stop: 10/23/20 21:43 Multivitamins/Minerals (Calcium 600mg + Vit D 400 Iu Tab) 1 tab PO BID [facility] Stop: 10/23/20 21:29 Last Admin: 09/24/20 10:17 Dose: Not Given Documented by: Ondansetron HCl (Ondansetron Inj 2 Mg/Ml 2 Ml Vial) 4 mg IV Q6H PRN PRN Reason: Nausea Stop: 10/23/20 20:54 Pantoprazole Sodium (Pantoprazole 40 Mg Tab) 40 mg PO BID [facility] Stop: 10/23/20 20:59 Last Admin: 09/24/20 10:18 Dose: Not Given Documented by: Polyethylene Glycol (Polyethylene (Miralax) 17 Gm Pack) 17 gm PO DAILY PRN PRN Reason: Constipation Stop: 10/23/20 20:54 Quetiapine Fumarate (Quetiapine Fumarate 25 Mg Tablet) 25 mg PO HS [facility] Stop: 10/23/20 20:59 Last Admin: 09/23/20 22:33 Dose: Not Given Documented by: Rosuvastatin Calcium (Rosuvastatin Calcium 20 Mg Tab) 20 mg PO DAILY [facility] Stop: 10/24/20 08:59 Last Admin: 09/24/20 10:17 Dose: Not Given Documented by: Spironolactone (Spironolactone 12.5 Mg Tab) 12.5 mg PO DAILY [facility] Stop: 10/24/20 08:59 Last Admin: 09/24/20 10:17 Dose: Not Given Documented by: Trazodone HCl (Trazodone Hcl 50 Mg Tab) 25 mg PO Q4H PRN PRN Reason: Agitation Stop: 10/24/20 14:29 Last Admin: 09/24/20 15:56 Dose: 25 mg Documented by: Warfarin Sodium (Warfarin Sod 1 Mg Tab) 1 mg PO [id number]@1600 [facility] Stop: 10/23/20 20:54 Last Admin: 09/24/20 15:54 Dose: 1 mg Documented by: Warfarin Sodium (Warfarin Sod 2 Mg Tab) 2 mg PO Mo@1600 [facility] Stop: 10/28/20 17:34 (1) CKD (chronic kidney disease) Chronic kidney disease stage: unspecified stage Qualified Code(s): N18.9 - Chronic kidney disease, unspecified (2) Abdominal pain Abdominal location: unspecified location Qualified Code(s): R10.9 - Unspecified abdominal pain
[2020-09-24] MEDS: CITALOPRAM 20 MG TAB PO SCH (21:20)
[2020-09-24] MEDS: DULoxetine HCL 20 MG CAP PO SCH (21:21)
[2020-09-24] MEDS: QUEtiapine FUMARATE 25 MG TABLET PO SCH (21:21)
[2020-09-25 07:26] LABS: Eosinophils # (auto) 0.02 K/uL (0-0.5); Eosinophils % (auto) 0.3 %; Hematocrit (blood only) 47.1 % (37-47); Hemoglobin 14.9 g/dL (12.0-16.0); Immature Granulocytes # (auto) 0.01 K/uL (0.00-0.02); Immature Granulocytes % (auto) 0.2 %; Lymphocytes # (auto) 0.75 K/uL (1.2-3.4); Lymphocytes % (auto) 11.7 %; Mean Corpuscular Hemoglobin 27.9 pg (25-34); Mean Corpuscular Hgb Conc 31.6 g/dL (32-36); Mean Corpuscular Volume 88.2 fL (80-100); Mean Platelet Volume 11.6 fL (7.4-10.4); Monocytes # (auto) 0.84 K/uL (0.11-0.59); Monocytes % (auto) 13.1 %; Neutrophils # (auto) 4.77 K/uL (1.4-6.5); Neutrophils % (auto) 74.7 %; Platelet Count 182 K/uL (130-400); RDW Coefficient of Variation 15.7 % (11.5-14.5); RDW Standard Deviation 50.1 fL (36.4-46.3); Red Blood Count 5.34 M/uL (4.2-5.4); White Blood Count 6.39 K/uL (4.8-10.8)
[2020-09-25 08:01] LABS: BUN Creatinine Ratio 10.3 (10-20); Blood Urea Nitrogen 16 mg/dl (7-18); Calcium 8.9 mg/dl (8.5-10.1); Carbon Dioxide 23 mmol/L (21-32); Chloride 109 mmol/L (98-107); Est GFR (African American) 36.1; Est GFR (Non-African American) 31.1; Glucose 150 mg/dl (70-99); Magnesium 2.1 mg/dl (1.8-2.4); Phosphorus 2.2 mg/dl (2.5-4.9); Potassium 3.8 mmol/L (3.5-5.1); Sodium 140 mmol/L (136-145)
[2020-09-25] MEDS: INSULIN ASPART 100 UNITS/ML 3 ML PEN SC SCH ×4 (08:04→21:57)
[2020-09-25] MEDS: CALCIUM 600MG + VIT D 400 IU TAB PO SCH ×2 (08:05→21:48)
[2020-09-25] MEDS: ISOSORBIDE MONO EXTENDED REL 30 MG TABCR PO SCH ×2 (08:05→21:47)
[2020-09-25] MEDS: SPIRONOLACTONE 12.5 MG TAB PO SCH (08:05)
[2020-09-25] MEDS: CLOPIDOGREL BISULFATE 75 MG TAB PO SCH (08:05)
[2020-09-25] MEDS: PANTOprazole 40 MG TAB PO SCH ×2 (08:05→21:48)
[2020-09-25] MEDS: ROSUVASTATIN CALCIUM 20 MG TAB PO SCH (08:05)
[2020-09-25] MEDS: INSULIN GLARGINE SOLOSTAR 100 UNITS/ML 3 ML PEN SC SCH (08:05)
[2020-09-25] MEDS: GABAPENTIN 300 MG CAP PO SCH ×2 (08:06→21:48)
[2020-09-25] MEDS: METOPROLOL SUCC 50MG EXT REL TAB PO SCH (08:53)
[2020-09-25] MEDS ORDERED: POTASSIUM PHOS 3 MMOL/1 ML INFUSION IV STA (09:36)
[2020-09-25] MEDS ORDERED: POTASSIUM PHOSPHATE 21 MMOL in SODIUM CHLORIDE 0.9% 500 ML IV ONE (10:00)
--- NOTE | 2020-09-25 12:20 | Electrocardiogram Report ---
Test Reason : Blood Pressure : / mmHG Vent. Rate : 100 BPM Atrial Rate : 108 BPM P-R Int : 000 ms QRS Dur : 082 ms QT Int : 308 ms P-R-T Axes : 000 -56 196 degrees QTc Int : 397 ms Atrial fibrillation Left axis deviation Septal infarct (cited on or before 09-JUN-2016) Abnormal ECG When compared with ECG of 24-SEP-2020 06:44, Nonspecific T wave abnormality, worse in Anterolateral leads Confirmed by Aubrey Arriaza ([id number]) on 09/25/2020 12:19:58 PM Referred By: REFERRED SELF Confirmed By:Aubrey Arriaza
--- NOTE | 2020-09-25 13:30 | Hospitalist Progress Note ---
Date of Service September 25, 2020 Assessment & Plan (1) Acute confusional state: She has history of dementia and presented with acute confusion Noted to be agitated and combative on admission Has been hallucinating at times Seems to be better this morning Will not give any benzodiazepines and/or narcotics Discussed with the daughter We will start trazodone 25 mg every 4 hourly as needed for agitation Trazodone 50 nightly No acute agitation and/or combative behavior Medically stable with confusion secondary to dementia Hypertensive urgency Blood pressure noted to be high this morning at 201/96 Beta-davin doses have been increased Possible UTI Has been getting intravenous Rocephin Will await culture and sensitivity (2) Dementia: (3) Chest pain: Presented with questionable chest pain Initial troponin minimally elevated She has chronically elevated troponin Did not have any EKG changes-doubt any ACS (4) Atrial fibrillation: Heart rate is controlled We will continue current medications (5) CKD (chronic kidney disease): (6) Systolic CHF, chronic: Remains euvolemic Advised more fluid intake but will not give any intravenous fluid (7) Abdominal pain: CT of the abdomen and pelvis remains unremarkable DVT prophylaxis Has been on Coumadin CODE STATUS Full Admission and Anticipated Discharge Date Admission Date: September 23, 2020 Subjective The patient was seen and examined in medical telemetry unit She is an 84-year-old female with significant history of dementia was admitted with acute confusion Remains confused as of this morning with occasional agitation 09/25/2020 The patient was seen and examined in medical telemetry unit She remains confused but does not have any agitation or aggressive behavior Denies any acute symptoms of shortness of breath, palpitation, abdominal pain, nausea and or vomiting Review of Systems Review of Systems: Unobtainable due to mental health condition Physical Exam Physical Exam: Lying in bed without any acute distress Constitutional: well developed, well nourished, + ill appearing and + obese Eyes: PERRL, conjunctivae normal, anicteric sclerae ENMT: external ear and nose normal, oropharynx normal Neck: trachea midline, no thyromegaly Respiratory: + respiratory distress (Minimal distress due to shortness of breath) Auscultation: + diminished lung sounds, + crackles (Minimal crackles at the bases) and + rhonchi Cardiovascular: Rate/Rhythm: + irregularly irregular Heart Sounds: + murmur (2/6 ESM over precordium) Gastrointestinal (Abdomen): Inspection/Auscultation: normal bowel sounds; abdomen not distended Percussion/Palpation: abdomen soft; abdomen nontender Neurologic: Alert and awake. Recently confused Psychiatric: Orientation: alert and cooperative; + not oriented x 3 Affect: + irritable affect Mood: + depressed mood Lymphatic: no cervical or axillary lymphadenopathy Results & Data Results & Data ([facility]) Vital Signs (Past 12 Hours) Vital Signs Temp Pulse Pulse Resp BP BP Pulse Ox 09/25/20 12:08 37.1 C 116 H 20 195/95 H 95 09/25/20 07:30 36.3 C L 101 H 18 159/88 H 93 09/25/20 03:42 92 H 09/25/20 02:53 36.6 C 87 16 159/82 H 93 Laboratory Results Short CBC 09/25/20 Range/Units 07:08 WBC 6.39 (4.8-10.8) K/uL Hgb 14.9 (12.0-16.0) g/dL Hct 47.1 H (37-47) % Plt Count 182 (130-400) K/uL BMP 09/25/20 07:08 Sodium 140 Potassium 3.8 Chloride 109 H Carbon Dioxide 23 BUN 16 Creatinine 1.53 H Glucose 150 H Calcium 8.9 Medications Administered Current Inpatient Medications Acetaminophen (Acetaminophen 325 Mg Tab) 650 mg PO Q4H PRN PRN Reason: Pain or Fever Stop: 10/23/20 20:54 Albuterol (Albut/Ipratrop 3mg/0.5mg Neb 3 Ml Vial) 3 ml NEB Q4R PRN PRN Reason: wheeze Stop: 10/23/20 22:59 Last Admin: 09/24/20 04:15 Dose: 3 ml Documented by: Citalopram Hydrobromide (Citalopram 20 Mg Tab) 10 mg PO HS [facility] Stop: 10/23/20 21:29 Last Admin: 09/24/20 21:20 Dose: 10 mg Documented by: Clopidogrel Bisulfate (Clopidogrel Bisulfate 75 Mg Tab) 75 mg PO QAM [facility] Stop: 10/24/20 08:59 Last Admin: 09/25/20 08:05 Dose: 75 mg Documented by: Dextrose (Dextrose 50% 50 Ml Syringe) 25 - 50 ml IV UD PRN; Protocol PRN Reason: Hypoglycemia Protocol Stop: 12/11/20 20:54 Digoxin (Digoxin 0.125 Mg Tab) 0.125 mg PO MoWeFr@1600 [facility] Stop: 10/23/20 20:54 Last Admin: 09/23/20 22:33 Dose: Not Given Documented by: Duloxetine HCl (Duloxetine Hcl 20 Mg Cap) 20 mg PO HS [facility] Stop: 10/23/20 20:59 Last Admin: 09/24/20 21:21 Dose: 20 mg Documented by: Gabapentin (Gabapentin 300 Mg Cap) 300 mg PO BID [facility] Stop: 10/23/20 20:59 Last Admin: 09/25/20 08:06 Dose: 300 mg Documented by: Glucagon (Glucagon For Inj 1 Mg Vial) 1 mg SQ UD PRN; Protocol PRN Reason: Hypoglycemia Protocol Stop: 10/23/20 20:54 Glucose (Glucose 10 Tabs/Tube) 4 - 8 tabs PO UD PRN; Protocol PRN Reason: Hypoglycemia Protocol Stop: 10/23/20 20:54 Glucose (Glucose 40% Gel 15 Gm Tube) 15 - 30 gm PO UD PRN; Protocol PRN Reason: Hypoglycemia Protocol Stop: 10/23/20 20:54 Haloperidol Lactate (Haloperidol Lactate 5 Mg/Ml 1 Ml Vial) 5 mg IM Q8 PRN PRN Reason: Agitation Stop: 10/23/20 17:04 Last Admin: 09/24/20 12:37 Dose: 5 mg Documented by: Ceftriaxone Sodium 2,000 mg/ (Dextrose) 70 mls @ 100 mls/hr IV Q24H [facility]; Protocol Stop: 09/28/20 16:59 Last Infusion: 09/24/20 17:46 Dose: Infused Documented by: Potassium Phosphate 21 mmol/ (Sodium Chloride) 507 mls @ 140 mls/hr IV 1000 ONE Stop: 09/25/20 13:37 Last Admin: 09/25/20 10:22 Dose: 140 mls/hr Documented by: Insulin Aspart (Insulin Aspart 100 Units/Ml 3 Ml Pen) [address] [facility]; Protocol Stop: 10/23/20 22:59 Last Admin: 09/25/20 12:34 Dose: 2 units Documented by: Insulin Glargine (Insulin Glargine Solostar 100 Units/Ml 3 Ml Pen) [facility] [place] Protocol Stop: 10/23/20 22:59 Last Admin: 09/25/20 08:05 Dose: 15 units Documented by: Isosorbide Mononitrate (Isosorbide [place] Extended Rel 30 Mg Tabcr) 30 mg PO BID [facility] Stop: 10/23/20 20:59 Last Admin: 09/25/20 08:05 Dose: 30 mg Documented by: Metoprolol Succinate (Metoprolol Succ 50mg Ext Rel Tab) 50 mg PO DAILY [facility] Stop: 10/25/20 08:59 Last Admin: 09/25/20 08:53 Dose: 50 mg Documented by: Miconazole Nitrate (Miconazole Nitrate Powder 43 Gm) 1 appln EXT PRN PRN PRN Reason: Affected Skin Folds Stop: 10/23/20 21:26 Last Admin: 09/24/20 15:59 Dose: 1 appln Documented by: Miscellaneous (Carbohydrates For Hypoglycemia ) 15 - 30 gm PO UD PRN PRN Reason: Hypoglycemia Protocol Stop: 10/23/20 20:54 Miscellaneous Information (Pharmacy Glycemic Mgmt Consult) 1 ea N/A UD PRN; Protocol PRN Reason: Consult Stop: 10/23/20 21:43 Multivitamins/Minerals (Calcium 600mg + Vit D 400 Iu Tab) 1 tab PO BID [facility] Stop: 10/23/20 21:29 Last Admin: 09/25/20 08:05 Dose: 1 tab Documented by: Ondansetron HCl (Ondansetron Inj 2 Mg/Ml 2 Ml Vial) 4 mg IV Q6H PRN PRN Reason: Nausea Stop: 10/23/20 20:54 Pantoprazole Sodium (Pantoprazole 40 Mg Tab) 40 mg PO BID [facility] Stop: 10/23/20 20:59 Last Admin: 09/25/20 08:05 Dose: 40 mg Documented by: Polyethylene Glycol (Polyethylene (Miralax) 17 Gm Pack) 17 gm PO DAILY PRN PRN Reason: Constipation Stop: 10/23/20 20:54 Quetiapine Fumarate (Quetiapine Fumarate 25 Mg Tablet) 25 mg PO HS [facility] Stop: 10/23/20 20:59 Last Admin: 09/24/20 21:21 Dose: 25 mg Documented by: Rosuvastatin Calcium (Rosuvastatin Calcium 20 Mg Tab) 20 mg PO DAILY [facility] Stop: 10/24/20 08:59 Last Admin: 09/25/20 08:05 Dose: 20 mg Documented by: Spironolactone (Spironolactone 12.5 Mg Tab) 12.5 mg PO DAILY [facility] Stop: 10/24/20 08:59 Last Admin: 09/25/20 08:05 Dose: 12.5 mg Documented by: Trazodone HCl (Trazodone Hcl 50 Mg Tab) 25 mg PO Q4H PRN PRN Reason: Agitation Stop: 10/24/20 14:29 Last Admin: 09/24/20 15:56 Dose: 25 mg Documented by: Warfarin Sodium (Warfarin Sod 1 Mg Tab) 1 mg PO SuTuWeThFrSa@1600 [facility] Stop: 10/23/20 20:54 Last Admin: 09/24/20 15:54 Dose: 1 mg Documented by: Warfarin Sodium (Warfarin Sod 2 Mg Tab) 2 mg PO Mo@1600 [facility] Stop: 10/28/20 17:34 (1) CKD (chronic kidney disease) Chronic kidney disease stage: unspecified stage Qualified Code(s): N18.9 - Chronic kidney disease, unspecified (2) Abdominal pain Abdominal location: unspecified location Qualified Code(s): R10.9 - Unspecified abdominal pain
[2020-09-25] MEDS: WARFARIN SOD 1 MG TAB PO SCH (15:41)
[2020-09-25] MEDS: DIGOXIN 0.125 MG TAB PO SCH (15:41)
[2020-09-25] MEDS: cefTRIAXone SODIUM 2,000 MG in DEXTROSE 5% 50 ML IV SCH (17:32)
[2020-09-25] MEDS: CITALOPRAM 20 MG TAB PO SCH (21:47)
[2020-09-25] MEDS: QUEtiapine FUMARATE 25 MG TABLET PO SCH (21:47)
[2020-09-25] MEDS: DULoxetine HCL 20 MG CAP PO SCH (21:47)
[2020-09-26] MEDS: INSULIN ASPART 100 UNITS/ML 3 ML PEN SC SCH ×4 (09:03→20:35)
[2020-09-26] MEDS: INSULIN GLARGINE SOLOSTAR 100 UNITS/ML 3 ML PEN SC SCH (09:04)
[2020-09-26] MEDS: CLOPIDOGREL BISULFATE 75 MG TAB PO SCH (11:41)
[2020-09-26] MEDS: GABAPENTIN 300 MG CAP PO SCH (11:42)
[2020-09-26] MEDS: CALCIUM 600MG + VIT D 400 IU TAB PO SCH ×2 (11:42→20:00)
[2020-09-26] MEDS: SPIRONOLACTONE 12.5 MG TAB PO SCH (11:43)
[2020-09-26] MEDS: ISOSORBIDE MONO EXTENDED REL 30 MG TABCR PO SCH ×2 (11:43→20:00)
[2020-09-26] MEDS: ROSUVASTATIN CALCIUM 20 MG TAB PO SCH (11:43)
[2020-09-26] MEDS: METOPROLOL SUCC 50MG EXT REL TAB PO SCH (11:44)
[2020-09-26] MEDS: PANTOprazole 40 MG TAB PO SCH ×2 (11:44→19:59)
--- NOTE | 2020-09-26 15:11 | Hospitalist Progress Note ---
Date of Service September 26, 2020 Assessment & Plan (1) Acute confusional state: She has history of dementia and presented with acute confusion Noted to be agitated and combative on admission Has been hallucinating at times Will not give any benzodiazepines and/or narcotics Discussed with the daughter We will start trazodone 25 mg every 4 hourly as needed for agitation Trazodone 50 nightly No acute agitation and/or combative behavior Medically stable with confusion secondary to dementia Semiresponsiveness Noted to be very drowsy and has not been participating with conversation Does not seems to be in any acute distress He did not receive any narcotics pain medications or any benzodiazepines We will hold off her antipsychotic medications medications for now We will get a psychiatric evaluation if needed Hypertensive urgency Blood pressure noted to be high this morning at 201/96 Beta-davin doses have been increased Possible UTI Has been getting intravenous Rocephin Will await culture and sensitivity (2) Dementia: (3) Chest pain: Presented with questionable chest pain Initial troponin minimally elevated She has chronically elevated troponin Did not have any EKG changes-doubt any ACS (4) Atrial fibrillation: Heart rate is controlled We will continue current medications (5) CKD (chronic kidney disease): (6) Systolic CHF, chronic: Remains euvolemic Advised more fluid intake but will not give any intravenous fluid (7) Abdominal pain: CT of the abdomen and pelvis remains unremarkable DVT prophylaxis Has been on Coumadin CODE STATUS Full Admission and Anticipated Discharge Date Admission Date: September 25, 2020 Subjective The patient was seen and examined in medical telemetry unit She is an 84-year-old female with significant history of dementia was admitted with acute confusion Remains confused as of this morning with occasional agitation 09/25/2020 The patient was seen and examined in medical telemetry unit She remains confused but does not have any agitation or aggressive behavior Denies any acute symptoms of shortness of breath, palpitation, abdominal pain, nausea and or vomiting 09/26/2020 Patient was seen and examined in medical telemetry unit She remains very drowsy today and has not been responding to commands but remains in hemodynamically stable Not missed receive any narcotics Review of Systems Review of Systems: Unobtainable due to mental health condition Physical Exam Physical Exam: Lying in bed with drowsiness unwilling to answer any questions Constitutional: well developed, well nourished, + ill appearing and + obese Eyes: PERRL, conjunctivae normal, anicteric sclerae ENMT: external ear and nose normal, oropharynx normal Neck: trachea midline, no thyromegaly Respiratory: + respiratory distress (Minimal distress due to shortness of breath) Auscultation: + diminished lung sounds, + crackles (Minimal crackles at the bases) and + rhonchi Cardiovascular: Rate/Rhythm: + irregularly irregular Heart Sounds: + murmur (2/6 ESM over precordium) Gastrointestinal (Abdomen): Inspection/Auscultation: normal bowel sounds; abdomen not distended Percussion/Palpation: abdomen soft; abdomen nontender Musculoskeletal: No acute arthritis in any joint Neurologic: Drowsy and not willing to participate in conversation Psychiatric: Orientation: alert and cooperative; + not oriented x 3 Affect: + irritable affect Mood: + depressed mood Lymphatic: no cervical or axillary lymphadenopathy Results & Data Results & Data ([facility]) Vital Signs (Past 12 Hours) Vital Signs Temp Pulse Resp BP Pulse Ox 09/26/20 13:46 79 150/80 H 09/26/20 11:51 36.4 C L 91 H 18 195/108 H 95 09/26/20 09:11 72 16 124/77 93 09/26/20 07:51 36.8 C 81 18 184/84 H 95 Medications Administered Current Inpatient Medications Acetaminophen (Acetaminophen 325 Mg Tab) 650 mg PO Q4H PRN PRN Reason: Pain or Fever Stop: 10/23/20 20:54 Albuterol (Albut/Ipratrop 3mg/0.5mg Neb 3 Ml Vial) 3 ml NEB Q4R PRN PRN Reason: wheeze Stop: 10/23/20 22:59 Last Admin: 09/24/20 04:15 Dose: 3 ml Documented by: Citalopram Hydrobromide (Citalopram 20 Mg Tab) 10 mg PO HS [facility] Stop: 10/23/20 21:29 Last Admin: 09/25/20 21:47 Dose: 10 mg Documented by: Clopidogrel Bisulfate (Clopidogrel Bisulfate 75 Mg Tab) 75 mg PO QAM [facility] Stop: 10/24/20 08:59 Last Admin: 09/26/20 11:41 Dose: 75 mg Documented by: Dextrose (Dextrose 50% 50 Ml Syringe) 25 - 50 ml IV UD PRN; Protocol PRN Reason: Hypoglycemia Protocol Stop: 10/23/20 20:54 Digoxin (Digoxin 0.125 Mg Tab) 0.125 mg PO MoWeFr@1600 [facility] Stop: 10/23/20 20:54 Last Admin: 09/25/20 15:41 Dose: 0.125 mg Documented by: Duloxetine HCl (Duloxetine Hcl 20 Mg Cap) 20 mg PO HS [facility] Stop: 10/23/20 20:59 Last Admin: 09/25/20 21:47 Dose: 20 mg Documented by: Gabapentin (Gabapentin 300 Mg Cap) 300 mg PO BID [facility] Stop: 10/23/20 20:59 Last Admin: 09/26/20 11:42 Dose: 300 mg Documented by: Glucagon (Glucagon For Inj 1 Mg Vial) 1 mg SQ UD PRN; Protocol PRN Reason: Hypoglycemia Protocol Stop: 10/23/20 20:54 Glucose (Glucose 10 Tabs/Tube) 4 - 8 tabs PO UD PRN; Protocol PRN Reason: Hypoglycemia Protocol Stop: 10/23/20 20:54 Glucose (Glucose 40% Gel 15 Gm Tube) 15 - 30 gm PO UD PRN; Protocol PRN Reason: Hypoglycemia Protocol Stop: 10/23/20 20:54 Haloperidol Lactate (Haloperidol Lactate 5 Mg/Ml 1 Ml Vial) 5 mg IM Q8 PRN PRN Reason: Agitation Stop: 10/23/20 17:04 Last Admin: 09/24/20 12:37 Dose: 5 mg Documented by: Ceftriaxone Sodium 2,000 mg/ (Dextrose) 70 mls @ 100 mls/hr IV Q24H [facility]; Protocol Stop: 09/28/20 16:59 Last Infusion: 09/25/20 18:21 Dose: Infused Documented by: Insulin Aspart (Insulin Aspart 100 Units/Ml 3 Ml Pen) 0 units SC ACHS [facility]; Protocol Stop: 10/23/20 22:59 Last Admin: 09/26/20 12:51 Dose: 4 units Documented by: Insulin Glargine (Insulin Glargine Solostar 100 Units/Ml 3 Ml Pen) [facility] [place] Protocol Stop: 10/23/20 22:59 Last Admin: 09/26/20 09:04 Dose: 15 units Documented by: Isosorbide Mononitrate (Isosorbide [place] Extended Rel 30 Mg Tabcr) 30 mg PO BID [facility] Stop: 10/23/20 20:59 Last Admin: 09/26/20 11:43 Dose: 30 mg Documented by: Metoprolol Succinate (Metoprolol Succ 50mg Ext Rel Tab) 50 mg PO DAILY [facility] Stop: 10/25/20 08:59 Last Admin: 09/26/20 11:44 Dose: 50 mg Documented by: Miconazole Nitrate (Miconazole Nitrate Powder 43 Gm) 1 appln EXT PRN PRN PRN Reason: Affected Skin Folds Stop: 10/23/20 21:26 Last Admin: 09/24/20 15:59 Dose: 1 appln Documented by: Miscellaneous (Carbohydrates For Hypoglycemia ) 15 - 30 gm PO UD PRN PRN Reason: Hypoglycemia Protocol Stop: 10/23/20 20:54 Miscellaneous Information (Pharmacy Glycemic Mgmt Consult) 1 ea N/A UD PRN; Protocol PRN Reason: Consult Stop: 10/23/20 21:43 Multivitamins/Minerals (Calcium 600mg + Vit D 400 Iu Tab) 1 tab PO BID [facility] Stop: 10/23/20 21:29 Last Admin: 09/26/20 11:42 Dose: 1 tab Documented by: Ondansetron HCl (Ondansetron Inj 2 Mg/Ml 2 Ml Vial) 4 mg IV Q6H PRN PRN Reason: Nausea Stop: 10/23/20 20:54 Pantoprazole Sodium (Pantoprazole 40 Mg Tab) 40 mg PO BID [facility] Stop: 10/23/20 20:59 Last Admin: 09/26/20 11:44 Dose: 40 mg Documented by: Polyethylene Glycol (Polyethylene (Miralax) 17 Gm Pack) 17 gm PO DAILY PRN PRN Reason: Constipation Stop: 10/23/20 20:54 Quetiapine Fumarate (Quetiapine Fumarate 25 Mg Tablet) 25 mg PO HS [facility] Stop: 10/23/20 20:59 Last Admin: 09/25/20 21:47 Dose: 25 mg Documented by: Rosuvastatin Calcium (Rosuvastatin Calcium 20 Mg Tab) 20 mg PO DAILY [facility] Stop: 10/24/20 08:59 Last Admin: 09/26/20 11:43 Dose: 20 mg Documented by: Spironolactone (Spironolactone 12.5 Mg Tab) 12.5 mg PO DAILY [facility] Stop: 10/24/20 08:59 Last Admin: 09/26/20 11:43 Dose: 12.5 mg Documented by: Trazodone HCl (Trazodone Hcl 50 Mg Tab) 25 mg PO Q4H PRN PRN Reason: Agitation Stop: 10/24/20 14:29 Last Admin: 09/24/20 15:56 Dose: 25 mg Documented by: Warfarin Sodium (Warfarin Sod 1 Mg Tab) 1 mg PO SuTuWeThFrSa@1600 [facility] Stop: 10/23/20 20:54 Last Admin: 09/25/20 15:41 Dose: 1 mg Documented by: Warfarin Sodium (Warfarin Sod 2 Mg Tab) 2 mg PO Mo@1600 [facility] Stop: 10/28/20 17:34 (1) CKD (chronic kidney disease) Chronic kidney disease stage: unspecified stage Qualified Code(s): N18.9 - Chronic kidney disease, unspecified (2) Abdominal pain Abdominal location: unspecified location Qualified Code(s): R10.9 - Unspecified abdominal pain
[2020-09-26] MEDS: WARFARIN SOD 1 MG TAB PO SCH (17:41)
[2020-09-26] MEDS: SODIUM CHLORIDE 0.9% 1000ML 1,000 ML IV SCH (17:45)
[2020-09-26] MEDS: cefTRIAXone SODIUM 2,000 MG in DEXTROSE 5% 50 ML IV SCH (17:55)
[2020-09-27] MEDS: HALOPERIDOL LACTATE 5 MG/ML 1 ML VIAL IM PRN (05:13)
[2020-09-27] MEDS: ROSUVASTATIN CALCIUM 20 MG TAB PO SCH (07:40)
[2020-09-27] MEDS: SPIRONOLACTONE 12.5 MG TAB PO SCH (07:41)
[2020-09-27] MEDS: CALCIUM 600MG + VIT D 400 IU TAB PO SCH ×2 (07:41→20:32)
[2020-09-27] MEDS: PANTOprazole 40 MG TAB PO SCH ×2 (07:42→20:34)
[2020-09-27] MEDS: METOPROLOL SUCC 50MG EXT REL TAB PO SCH (07:46)
[2020-09-27] MEDS: CLOPIDOGREL BISULFATE 75 MG TAB PO SCH (07:46)
[2020-09-27] MEDS: ISOSORBIDE MONO EXTENDED REL 30 MG TABCR PO SCH ×2 (07:47→20:33)
[2020-09-27] MEDS ORDERED: cloNIDine HCL 0.1 MG TAB PO ONE (08:13)
[2020-09-27] MEDS: INSULIN ASPART 100 UNITS/ML 3 ML PEN SC SCH ×4 (08:17→20:34)
[2020-09-27] MEDS: INSULIN GLARGINE SOLOSTAR 100 UNITS/ML 3 ML PEN SC SCH (08:18)
[2020-09-27] MEDS: SODIUM CHLORIDE 0.9% 1000ML 1,000 ML IV SCH ×2 (08:21→20:32)
[2020-09-27] MEDS ORDERED: amLODIPine BESYLATE 5 MG TAB PO SCH (09:00)
[2020-09-27 09:03] LABS: Basophils # (auto) 0.01 K/uL (0-0.2); Basophils % (auto) 0.1 %; Eosinophils # (auto) 0.03 K/uL (0-0.5); Eosinophils % (auto) 0.4 %; Hematocrit (blood only) 47.7 % (37-47); Hemoglobin 15.3 g/dL (12.0-16.0); Immature Granulocytes # (auto) 0.03 K/uL (0.00-0.02); Immature Granulocytes % (auto) 0.4 %; Lymphocytes # (auto) 0.72 K/uL (1.2-3.4); Lymphocytes % (auto) 10.2 %; Mean Corpuscular Hemoglobin 28.1 pg (25-34); Mean Corpuscular Hgb Conc 32.1 g/dL (32-36); Mean Corpuscular Volume 87.7 fL (80-100); Mean Platelet Volume 11.4 fL (7.4-10.4); Monocytes # (auto) 0.53 K/uL (0.11-0.59); Monocytes % (auto) 7.5 %; Neutrophils # (auto) 5.72 K/uL (1.4-6.5); Neutrophils % (auto) 81.4 %; Platelet Count 177 K/uL (130-400); RDW Coefficient of Variation 15.7 % (11.5-14.5); RDW Standard Deviation 49.3 fL (36.4-46.3); Red Blood Count 5.44 M/uL (4.2-5.4); White Blood Count 7.04 K/uL (4.8-10.8)
[2020-09-27 10:16] LABS: BUN Creatinine Ratio 13.3 (10-20); Blood Urea Nitrogen 21 mg/dl (7-18); Calcium 8.2 mg/dl (8.5-10.1); Carbon Dioxide 24 mmol/L (21-32); Chloride 109 mmol/L (98-107); Est GFR (African American) 35.5; Est GFR (Non-African American) 30.6; Glucose 213 mg/dl (70-99); Potassium 3.8 mmol/L (3.5-5.1); Sodium 139 mmol/L (136-145)
--- NOTE | 2020-09-27 11:22 | Hospitalist Progress Note ---
Date of Service September 27, 2020 Assessment & Plan (1) Acute confusional state: She has history of dementia and presented with acute confusion Noted to be agitated and combative on admission Has been hallucinating at times Will not give any benzodiazepines and/or narcotics Discussed with the daughter We will start trazodone 25 mg every 4 hourly as needed for agitation No acute agitation and/or combative behavior Medically stable with confusion secondary to dementia Required 1 dose of Haldol last night for agitation Pleasantly confused this morning Psychiatric assessment to adjust antipsychotic medications Semiresponsiveness- Noted to be very drowsy and has not been participating with conversation Does not seems to be in any acute distress He did not receive any narcotics pain medications or any benzodiazepines We will hold off her antipsychotic medications medications for now We will get a psychiatric evaluation if needed Condition resolved Hypertensive urgency Blood pressure noted to be high this morning at 201/96 Beta-davin doses have been increased Blood pressure is stable as of this morning Possible UTI Has been getting intravenous Rocephin Will await culture and sensitivity (2) Dementia: (3) Chest pain: Presented with questionable chest pain Initial troponin minimally elevated She has chronically elevated troponin Did not have any EKG changes-doubt any ACS (4) Atrial fibrillation: Heart rate is controlled We will continue current medications (5) CKD (chronic kidney disease): (6) Systolic CHF, chronic: Remains euvolemic Advised more fluid intake but will not give any intravenous fluid (7) Abdominal pain: CT of the abdomen and pelvis remains unremarkable DVT prophylaxis Has been on Coumadin CODE STATUS Full Discussed with the daughter and the granddaughter Continue PT and OT evaluation and possible placement on discharge Admission and Anticipated Discharge Date Admission Date: September 25, 2020 Subjective The patient was seen and examined in medical telemetry unit She is an 84-year-old female with significant history of dementia was admitted with acute confusion Remains confused as of this morning with occasional agitation 09/25/2020 The patient was seen and examined in medical telemetry unit She remains confused but does not have any agitation or aggressive behavior Denies any acute symptoms of shortness of breath, palpitation, abdominal pain, nausea and or vomiting 09/26/2020 Patient was seen and examined in medical telemetry unit She remains very drowsy today and has not been responding to commands but remains in hemodynamically stable Not missed receive any narcotics 09/27/2020 The patient was seen and examined in medical telemetry unit She has been much better as of this morning and required 1 dose of Haldol last night for agitation She remains pleasantly confused but denies any acute symptoms Review of Systems Review of Systems: All systems reviewed and are unremarkable except as noted below Neurologic: Remains pleasantly confused Physical Exam Physical Exam: Lying in bed without any distress Constitutional: well developed, well nourished, + ill appearing and + obese Eyes: PERRL, conjunctivae normal, anicteric sclerae ENMT: external ear and nose normal, oropharynx normal Neck: trachea midline, no thyromegaly Respiratory: + respiratory distress (Minimal distress due to shortness of breath) Auscultation: + diminished lung sounds, + crackles (Minimal crackles at the bases) and + rhonchi Cardiovascular: Rate/Rhythm: + irregularly irregular Heart Sounds: + murmur (2/6 ESM over precordium) Gastrointestinal (Abdomen): Inspection/Auscultation: normal bowel sounds; abdomen not distended Percussion/Palpation: abdomen soft; abdomen nontender Musculoskeletal: No acute arthritis in any joint Psychiatric: Orientation: alert and cooperative; + not oriented x 3 Affect: + irritable affect Mood: + depressed mood Lymphatic: no cervical or axillary lymphadenopathy Results & Data Results & Data ([facility]) Vital Signs (Past 12 Hours) Vital Signs Temp Pulse Pulse Resp BP BP Pulse Ox 09/27/20 08:27 128/78 09/27/20 07:54 36.7 C 117 H 18 201/107 H 94 09/27/20 03:11 78 09/27/20 01:21 88 156/84 H 09/27/20 00:59 36.5 C 92 H 18 177/98 H 93 Laboratory Results Short CBC 09/27/20 Range/Units 08:53 WBC 7.04 (4.8-10.8) K/uL Hgb 15.3 (12.0-16.0) g/dL Hct 47.7 H (37-47) % Plt Count 177 (130-400) K/uL BMP 09/27/20 08:53 Sodium 139 Potassium 3.8 Chloride 109 H Carbon Dioxide 24 BUN 21 H Creatinine 1.55 H Glucose 213 H Calcium 8.2 L Medications Administered Current Inpatient Medications Acetaminophen (Acetaminophen 325 Mg Tab) 650 mg PO Q4H PRN PRN Reason: Pain or Fever Stop: 12/11/20 20:54 Albuterol (Albut/Ipratrop 3mg/0.5mg Neb 3 Ml Vial) 3 ml NEB Q4R PRN PRN Reason: wheeze Stop: 10/23/20 22:59 Last Admin: 09/24/20 04:15 Dose: 3 ml Documented by: Citalopram Hydrobromide (Citalopram 20 Mg Tab) 10 mg PO HS [facility] Stop: 10/23/20 21:29 Last Admin: 09/25/20 21:47 Dose: 10 mg Documented by: Clopidogrel Bisulfate (Clopidogrel Bisulfate 75 Mg Tab) 75 mg PO QAM [facility] Stop: 10/24/20 08:59 Last Admin: 09/27/20 07:46 Dose: 75 mg Documented by: Dextrose (Dextrose 50% 50 Ml Syringe) 25 - 50 ml IV UD PRN; Protocol PRN Reason: Hypoglycemia Protocol Stop: 10/23/20 20:54 Digoxin (Digoxin 0.125 Mg Tab) 0.125 mg PO MoWeFr@1600 [facility] Stop: 10/23/20 20:54 Last Admin: 09/25/20 15:41 Dose: 0.125 mg Documented by: Duloxetine HCl (Duloxetine Hcl 20 Mg Cap) 20 mg PO HS [facility] Stop: 10/23/20 20:59 Last Admin: 09/25/20 21:47 Dose: 20 mg Documented by: Gabapentin (Gabapentin 300 Mg Cap) 300 mg PO BID [facility] Stop: 10/23/20 20:59 Last Admin: 09/26/20 11:42 Dose: 300 mg Documented by: Glucagon (Glucagon For Inj 1 Mg Vial) 1 mg SQ UD PRN; Protocol PRN Reason: Hypoglycemia Protocol Stop: 10/23/20 20:54 Glucose (Glucose 10 Tabs/Tube) 4 - 8 tabs PO UD PRN; Protocol PRN Reason: Hypoglycemia Protocol Stop: 10/23/20 20:54 Glucose (Glucose 40% Gel 15 Gm Tube) 15 - 30 gm PO UD PRN; Protocol PRN Reason: Hypoglycemia Protocol Stop: 10/23/20 20:54 Haloperidol Lactate (Haloperidol Lactate 5 Mg/Ml 1 Ml Vial) 5 mg IM Q8 PRN PRN Reason: Agitation Stop: 10/23/20 17:04 Last Admin: 09/27/20 05:13 Dose: 5 mg Documented by: Ceftriaxone Sodium 2,000 mg/ (Dextrose) 70 mls @ 100 mls/hr IV Q24H [facility]; Protocol Stop: 09/28/20 16:59 Last Infusion: 09/26/20 19:08 Dose: Infused Documented by: Sodium Chloride (Nss 1000ml) 1,000 mls @ 80 mls/hr IV .[id number] [facility] Stop: 09/28/20 06:29 Last Admin: 09/27/20 08:21 Dose: 80 mls/hr Documented by: Insulin Aspart (Insulin Aspart 100 Units/Ml 3 Ml Pen) 0 units SC ACHS [facility]; Protocol Stop: 10/23/20 22:59 Last Admin: 09/27/20 08:17 Dose: 6 units Documented by: Insulin Glargine (Insulin Glargine Solostar 100 Units/Ml 3 Ml Pen) [facility]; Protocol Stop: 10/23/20 22:59 Last Admin: 09/27/20 08:18 Dose: 15 units Documented by: Isosorbide Mononitrate (Isosorbide [place] Extended Rel 30 Mg Tabcr) 30 mg PO BID [facility] Stop: 10/23/20 20:59 Last Admin: 09/27/20 07:47 Dose: 30 mg Documented by: Metoprolol Succinate (Metoprolol Succ 50mg Ext Rel Tab) 50 mg PO DAILY [facility] Stop: 10/25/20 08:59 Last Admin: 09/27/20 07:46 Dose: 50 mg Documented by: Miconazole Nitrate (Miconazole Nitrate Powder 43 Gm) 1 appln EXT PRN PRN PRN Reason: Affected Skin Folds Stop: 10/23/20 21:26 Last Admin: 09/24/20 15:59 Dose: 1 appln Documented by: Miscellaneous (Carbohydrates For Hypoglycemia ) 15 - 30 gm PO UD PRN PRN Reason: Hypoglycemia Protocol Stop: 10/23/20 20:54 Miscellaneous Information (Pharmacy Glycemic Mgmt Consult) 1 ea N/A UD PRN; Protocol PRN Reason: Consult Stop: 10/23/20 21:43 Multivitamins/Minerals (Calcium 600mg + Vit D 400 Iu Tab) 1 tab PO BID [facility] Stop: 10/23/20 21:29 Last Admin: 09/27/20 07:41 Dose: 1 tab Documented by: Ondansetron HCl (Ondansetron Inj 2 Mg/Ml 2 Ml Vial) 4 mg IV Q6H PRN PRN Reason: Nausea Stop: 10/23/20 20:54 Pantoprazole Sodium (Pantoprazole 40 Mg Tab) 40 mg PO BID [facility] Stop: 10/23/20 20:59 Last Admin: 09/27/20 07:42 Dose: 40 mg Documented by: Polyethylene Glycol (Polyethylene (Miralax) 17 Gm Pack) 17 gm PO DAILY PRN PRN Reason: Constipation Stop: 10/23/20 20:54 Quetiapine Fumarate (Quetiapine Fumarate 25 Mg Tablet) 25 mg PO HS [facility] Stop: 10/23/20 20:59 Last Admin: 09/25/20 21:47 Dose: 25 mg Documented by: Rosuvastatin Calcium (Rosuvastatin Calcium 20 Mg Tab) 20 mg PO DAILY [facility] Stop: 10/24/20 08:59 Last Admin: 09/27/20 07:40 Dose: 20 mg Documented by: Spironolactone (Spironolactone 12.5 Mg Tab) 12.5 mg PO DAILY [facility] Stop: 10/24/20 08:59 Last Admin: 09/27/20 07:41 Dose: 12.5 mg Documented by: Trazodone HCl (Trazodone Hcl 50 Mg Tab) 25 mg PO Q4H PRN PRN Reason: Agitation Stop: 10/24/20 14:29 Last Admin: 09/24/20 15:56 Dose: 25 mg Documented by: Warfarin Sodium (Warfarin Sod 1 Mg Tab) 1 mg PO [id number]@1600 [facility] Stop: 10/23/20 20:54 Last Admin: 09/26/20 17:41 Dose: 1 mg Documented by: Warfarin Sodium (Warfarin Sod 2 Mg Tab) 2 mg PO Mo@1600 [facility] Stop: 10/28/20 17:34 (1) CKD (chronic kidney disease) Chronic kidney disease stage: unspecified stage Qualified Code(s): N18.9 - Chronic kidney disease, unspecified (2) Abdominal pain Abdominal location: unspecified location Qualified Code(s): R10.9 - Unspecified abdominal pain
[2020-09-27] MEDS: WARFARIN SOD 1 MG TAB PO SCH ×2 (15:42→15:44)
[2020-09-27] MEDS: cefTRIAXone SODIUM 2,000 MG in DEXTROSE 5% 50 ML IV SCH (17:07)
[2020-09-27] MEDS: GABAPENTIN 100 MG CAP PO SCH (20:33)
[2020-09-28] MEDS: METOPROLOL TARTRATE 1 MG/ML VIAL IV PRN (01:08)
[2020-09-28] MEDS: traZODone HCL 50 MG TAB PO PRN (01:30)
[2020-09-28] MEDS: HALOPERIDOL LACTATE 5 MG/ML 1 ML VIAL IM PRN (05:15)
[2020-09-28 07:27] LABS: INR 2.8 (0.9-1.1); Prothrombin Time 28.4 Seconds (9.0-12.0)
[2020-09-28 07:37] LABS: BUN Creatinine Ratio 13.3 (10-20); Blood Urea Nitrogen 17 mg/dl (7-18); Calcium 8.4 mg/dl (8.5-10.1); Carbon Dioxide 23 mmol/L (21-32); Chloride 111 mmol/L (98-107); Est GFR (African American) 44.8; Est GFR (Non-African American) 38.6; Glucose 167 mg/dl (70-99); Potassium 3.9 mmol/L (3.5-5.1); Sodium 139 mmol/L (136-145)
[2020-09-28] MEDS: PANTOprazole 40 MG TAB PO SCH ×2 (08:17→21:00)
[2020-09-28] MEDS: GABAPENTIN 100 MG CAP PO SCH ×2 (08:17→21:00)
[2020-09-28] MEDS: ROSUVASTATIN CALCIUM 20 MG TAB PO SCH (08:17)
[2020-09-28] MEDS: CLOPIDOGREL BISULFATE 75 MG TAB PO SCH (08:17)
[2020-09-28] MEDS: CALCIUM 600MG + VIT D 400 IU TAB PO SCH ×2 (08:17→21:00)
[2020-09-28] MEDS: SPIRONOLACTONE 12.5 MG TAB PO SCH (08:17)
[2020-09-28] MEDS: ISOSORBIDE MONO EXTENDED REL 30 MG TABCR PO SCH ×2 (08:18→21:00)
[2020-09-28] MEDS: INSULIN ASPART 100 UNITS/ML 3 ML PEN SC SCH ×4 (08:27→21:01)
[2020-09-28] MEDS ORDERED: INSULIN GLARGINE SOLOSTAR 100 UNITS/ML 3 ML PEN SC SCH (09:00)
[2020-09-28] MEDS: METOPROLOL SUCC 50MG EXT REL TAB PO SCH (09:35)
--- NOTE | 2020-09-28 12:20 | Hospitalist Progress Note ---
Date of Service September 28, 2020 Assessment & Plan (1) Acute confusional state: Likely has metabolic encephalopathy due to multiple factors as mentioned below She has history of dementia and presented with acute confusion Noted to be agitated and combative on admission Has been hallucinating at times Will not give any benzodiazepines and/or narcotics Discussed with the daughter We will start trazodone 25 mg every 4 hourly as needed for agitation No acute agitation and/or combative behavior Medically stable with confusion secondary to dementia Required 1 dose of Haldol last night for agitation Pleasantly confused this morning Psychiatric assessment to adjust antipsychotic medications Discussed with the psychiatrist. He has been under care of outpatient psychiatrist who has been trying to wean off duloxetine and giving Celexa Her duloxetine has been discontinued and Celexa 10 mg daily has been started Her gabapentin doses have been decreased to 100 mg 3 times daily She is more alert and awake, pleasantly confused and remains generally weak We will get PT and OT evaluation for possible placement which was discussed with the [id number] and the daughter Semiresponsiveness- Noted to be very drowsy and has not been participating with conversation Does not seems to be in any acute distress He did not receive any narcotics pain medications or any benzodiazepines We will hold off her antipsychotic medications medications for now We will get a psychiatric evaluation if needed Condition resolved Hypertensive urgency Blood pressure noted to be high this morning at 201/96 Beta-davin doses have been increased Blood pressure is stable as of this morning She remains on the upper side Possible UTI Has been getting intravenous Rocephin Will await culture and sensitivity-negative so far Discontinue antibiotic (2) Dementia: (3) Chest pain: Presented with questionable chest pain Initial troponin minimally elevated She has chronically elevated troponin Did not have any EKG changes-doubt any ACS (4) Atrial fibrillation: Heart rate is controlled We will continue current medications To have occasional ectopic beats/VT but nothing is sustaining Continue current medication (5) CKD (chronic kidney disease): (6) Systolic CHF, chronic: Remains euvolemic Advised more fluid intake but will not give any intravenous fluid No signs or symptoms of fluid overload and no shortness of breath (7) Abdominal pain: CT of the abdomen and pelvis remains unremarkable DVT prophylaxis Has been on Coumadin-INR remains therapeutic CODE STATUS Full Discussed with the daughter and the granddaughter Continue PT and OT evaluation and possible placement on discharge Admission and Anticipated Discharge Date Admission Date: September 25, 2020 Subjective The patient was seen and examined in medical telemetry unit She is an 84-year-old female with significant history of dementia was admitted with acute confusion Remains confused as of this morning with occasional agitation 09/25/2020 The patient was seen and examined in medical telemetry unit She remains confused but does not have any agitation or aggressive behavior Denies any acute symptoms of shortness of breath, palpitation, abdominal pain, nausea and or vomiting 09/26/2020 Patient was seen and examined in medical telemetry unit She remains very drowsy today and has not been responding to commands but remains in hemodynamically stable Not missed receive any narcotics 09/27/2020 The patient was seen and examined in medical telemetry unit She has been much better as of this morning and required 1 dose of Haldol last night for agitation She remains pleasantly confused but denies any acute symptoms 09/28/2020 The patient was seen and examined in medical telemetry unit She remains generally weak and lethargic and pleasantly confused She is willing to participate in PT and OT Denies any other symptoms Review of Systems Review of Systems: All systems reviewed and are unremarkable except as noted below Neurologic: Remains pleasantly confused. Generally weak and lethargic Physical Exam Physical Exam: Lying in bed without any distress Constitutional: well developed, well nourished, + ill appearing and + obese Eyes: PERRL, conjunctivae normal, anicteric sclerae ENMT: external ear and nose normal, oropharynx normal Neck: trachea midline, no thyromegaly Respiratory: + respiratory distress (Minimal distress due to shortness of breath) Auscultation: + diminished lung sounds, + crackles (Minimal crackles at the bases) and + rhonchi Cardiovascular: Rate/Rhythm: + irregularly irregular Heart Sounds: + murmur (2/6 ESM over precordium) Gastrointestinal (Abdomen): Inspection/Auscultation: normal bowel sounds; abdomen not distended Percussion/Palpation: abdomen soft; abdomen nontender Musculoskeletal: No acute arthritis in any joint Psychiatric: Orientation: alert and cooperative; + not oriented x 3 Affect: + irritable affect Mood: + depressed mood Lymphatic: no cervical or axillary lymphadenopathy Results & Data Results & Data ([facility]) Vital Signs (Past 12 Hours) Vital Signs Temp Pulse Resp BP BP BP Pulse Ox 09/28/20 11:43 36.8 C 100 H 20 96 09/28/20 07:49 36.5 C 89 20 169/80 H 95 09/28/20 03:04 36.8 C 90 18 178/90 H 96 09/28/20 01:08 199/111 H Laboratory Results [facility] 09/28/20 06:52 Sodium 139 Potassium 3.9 Chloride 111 H Carbon Dioxide 23 BUN 17 Creatinine 1.28 H Glucose 167 H Calcium 8.4 L Medications Administered Current Inpatient Medications Acetaminophen (Acetaminophen 325 Mg Tab) 650 mg PO Q4H PRN PRN Reason: Pain or Fever Stop: 10/23/20 20:54 Albuterol (Albut/Ipratrop 3mg/0.5mg Neb 3 Ml Vial) 3 ml NEB Q4R PRN PRN Reason: wheeze Stop: 10/23/20 22:59 Last Admin: 09/24/20 04:15 Dose: 3 ml Documented by: Citalopram Hydrobromide (Citalopram 20 Mg Tab) 10 mg PO [facility] Stop: 10/23/20 21:29 Last Admin: 09/25/20 21:47 Dose: 10 mg Documented by: Clopidogrel Bisulfate (Clopidogrel Bisulfate 75 Mg Tab) 75 mg PO QAM [facility] Stop: 10/24/20 08:59 Last Admin: 09/28/20 08:17 Dose: 75 mg Documented by: Dextrose (Dextrose 50% 50 Ml Syringe) 25 - 50 ml IV UD PRN; Protocol PRN Reason: Hypoglycemia Protocol Stop: 10/23/20 20:54 Digoxin (Digoxin 0.125 Mg Tab) 0.125 mg PO MoWeFr@1600 [facility] Stop: 10/23/20 20:54 Last Admin: 09/25/20 15:41 Dose: 0.125 mg Documented by: Duloxetine HCl (Duloxetine Hcl 20 Mg Cap) 20 mg PO [facility] Stop: 10/23/20 20:59 Last Admin: 09/25/20 21:47 Dose: 20 mg Documented by: Gabapentin (Gabapentin 100 Mg Cap) 100 mg PO BID [facility] Stop: 10/27/20 11:44 Last Admin: 09/28/20 08:17 Dose: 100 mg Documented by: Glucagon (Glucagon For Inj 1 Mg Vial) 1 mg SQ UD PRN; Protocol PRN Reason: Hypoglycemia Protocol Stop: 10/23/20 20:54 Glucose (Glucose 10 Tabs/Tube) 4 - 8 tabs PO UD PRN; Protocol PRN Reason: Hypoglycemia Protocol Stop: 10/23/20 20:54 Glucose (Glucose 40% Gel 15 Gm Tube) 15 - 30 gm PO UD PRN; Protocol PRN Reason: Hypoglycemia Protocol Stop: 10/23/20 20:54 Haloperidol Lactate (Haloperidol Lactate 5 Mg/Ml 1 Ml Vial) 5 mg IM Q8 PRN PRN Reason: Agitation Stop: 10/23/20 17:04 Last Admin: 09/28/20 05:15 Dose: 5 mg Documented by: Ceftriaxone Sodium 2,000 mg/ (Dextrose) 70 mls @ 100 mls/hr IV Q24H [facility]; Protocol Stop: 09/28/20 16:59 Last Infusion: 09/27/20 18:04 Dose: Infused Documented by: Insulin Aspart (Insulin Aspart 100 Units/Ml 3 Ml Pen) 0 units SC [facility]; Protocol Stop: 10/23/20 22:59 Last Admin: 09/28/20 08:27 Dose: 11 units Documented by: Insulin Glargine (Insulin Glargine Solostar 100 Units/Ml 3 Ml Pen) 20 units SC [facility]; Protocol Stop: 10/23/20 22:59 Last Admin: 09/28/20 08:19 Dose: 20 units Documented by: Isosorbide Mononitrate (Isosorbide [place] Extended Rel 30 Mg Tabcr) 30 mg PO BID [facility] Stop: 10/23/20 20:59 Last Admin: 09/28/20 08:18 Dose: 30 mg Documented by: Metoprolol Succinate (Metoprolol Succ 50mg Ext Rel Tab) 50 mg PO DAILY [facility] Stop: 10/25/20 08:59 Last Admin: 09/28/20 09:35 Dose: 50 mg Documented by: Metoprolol Tartrate (Metoprolol Tartrate 1 Mg/Ml Vial) 5 mg IV Q6 PRN PRN Reason: Hypertension Stop: 10/28/20 00:00 Last Admin: 09/28/20 01:08 Dose: 5 mg Documented by: Miconazole Nitrate (Miconazole Nitrate Powder 43 Gm) 1 appln EXT PRN PRN PRN Reason: Affected Skin Folds Stop: 10/23/20 21:26 Last Admin: 09/24/20 15:59 Dose: 1 appln Documented by: Miscellaneous (Carbohydrates For Hypoglycemia ) 15 - 30 gm PO UD PRN PRN Reason: Hypoglycemia Protocol Stop: 10/23/20 20:54 Miscellaneous Information (Pharmacy Glycemic Mgmt Consult) 1 ea N/A UD PRN; Protocol PRN Reason: Consult Stop: 10/23/20 21:43 Multivitamins/Minerals (Calcium 600mg + Vit D 400 Iu Tab) 1 tab PO BID [facility] Stop: 10/23/20 21:29 Last Admin: 09/28/20 08:17 Dose: 1 tab Documented by: Ondansetron HCl (Ondansetron Inj 2 Mg/Ml 2 Ml Vial) 4 mg IV Q6H PRN PRN Reason: Nausea Stop: 10/23/20 20:54 Pantoprazole Sodium (Pantoprazole 40 Mg Tab) 40 mg PO BID [facility] Stop: 10/23/20 20:59 Last Admin: 09/28/20 08:17 Dose: 40 mg Documented by: Polyethylene Glycol (Polyethylene (Miralax) 17 Gm Pack) 17 gm PO DAILY PRN PRN Reason: Constipation Stop: 10/23/20 20:54 Quetiapine Fumarate (Quetiapine Fumarate 25 Mg Tablet) 25 mg PO HS [facility] Stop: 10/23/20 20:59 Last Admin: 09/25/20 21:47 Dose: 25 mg Documented by: Rosuvastatin Calcium (Rosuvastatin Calcium 20 Mg Tab) 20 mg PO DAILY [facility] Stop: 10/24/20 08:59 Last Admin: 09/28/20 08:17 Dose: 20 mg Documented by: Spironolactone (Spironolactone 12.5 Mg Tab) 12.5 mg PO DAILY [facility] Stop: 10/24/20 08:59 Last Admin: 09/28/20 08:17 Dose: 12.5 mg Documented by: Trazodone HCl (Trazodone Hcl 50 Mg Tab) 25 mg PO Q4H PRN PRN Reason: Agitation Stop: 10/24/20 14:29 Last Admin: 09/28/20 01:30 Dose: 25 mg Documented by: Warfarin Sodium (Warfarin Sod 1 Mg Tab) 1 mg PO [id number]@1600 [facility] Stop: 10/23/20 20:54 Last Admin: 09/27/20 15:44 Dose: Not Given Documented by: Warfarin Sodium (Warfarin Sod 2 Mg Tab) 2 mg PO Mo@1600 [facility] Stop: 10/28/20 17:34 (1) CKD (chronic kidney disease) Chronic kidney disease stage: unspecified stage Qualified Code(s): N18.9 - Chronic kidney disease, unspecified (2) Abdominal pain Abdominal location: unspecified location Qualified Code(s): R10.9 - Unspecified abdominal pain
--- NOTE | 2020-09-28 14:16 | Pharmacy Report ---
Pharmacy Glycemic Short Note 2 - Date of Service September 28, 2020 - Glycemic Short BSG Results (Last 24 hours): OUTPATIENT ANTIDIABETIC REGIMEN: * Novolog Mix 70/30: 40 units SC qAM + 45 units SC qPM * HbA1c = 7.1% (09/24/2020) ASSESSMENT: 09/28: * Nidhi received a total of 25 units of insulin yesterday * 15 units basal + 10 units bolus * BSGs were 162-159-161 mg/dL - acceptable * Patient has average 25 units of insulin per day since admission with little change in stressors * Fasting BSG today was 162 mg/dL - acceptable * Increased basal insulin slightly PLAN FOR INPATIENT GLYCEMIC CONTROL: * Basal insulin - increased * Lantus 20 units SQ qAM * Bolus insulin - no change * NovoLog per scale ACHS or Q6hrs while NPO * Goal Range: Low 110 mg/dL - High 140 mg/dL * Correction Factor: 20 mg/dL/unit * Nutritional / Prandial insulin per carb ratio of 1 unit per 7 grams CHO consumed PLAN FOR DISCHARGE: * HbA1c from this admission was 7.1%. This is at goal as patient's A1c should be < 8.0% based on her age and comorbidities. Recommend continuing current outpatient regimen as long as patient is not experiencing any signs/symptoms of hypoglycemia.
[2020-09-28] MEDS: DIGOXIN 0.125 MG TAB PO SCH (16:38)
[2020-09-28] MEDS ORDERED: WARFARIN SOD 2 MG TAB PO SCH (17:35)
[2020-09-29] MEDS: METOPROLOL TARTRATE 1 MG/ML VIAL IV PRN (05:41)
[2020-09-29] MEDS: METOPROLOL SUCC 50MG EXT REL TAB PO SCH (07:54)
[2020-09-29] MEDS: ROSUVASTATIN CALCIUM 20 MG TAB PO SCH (07:57)
[2020-09-29] MEDS: PANTOprazole 40 MG TAB PO SCH (07:57)
[2020-09-29] MEDS: CLOPIDOGREL BISULFATE 75 MG TAB PO SCH (07:57)
[2020-09-29] MEDS: ISOSORBIDE MONO EXTENDED REL 30 MG TABCR PO SCH (07:57)
[2020-09-29] MEDS: CALCIUM 600MG + VIT D 400 IU TAB PO SCH (07:57)
[2020-09-29] MEDS: SPIRONOLACTONE 12.5 MG TAB PO SCH (07:58)
[2020-09-29] MEDS: GABAPENTIN 100 MG CAP PO SCH (07:58)
[2020-09-29] MEDS: INSULIN ASPART 100 UNITS/ML 3 ML PEN SC SCH ×2 (08:03→12:14)
[2020-09-29] MEDS ORDERED: INSULIN GLARGINE SOLOSTAR 100 UNITS/ML 3 ML PEN SC SCH (09:00)
--- NOTE | 2020-09-29 11:06 | Hospitalist Progress Note ---
Date of Service September 29, 2020 Assessment & Plan (1) Acute confusional state: Likely has metabolic encephalopathy due to multiple factors as mentioned below She has history of dementia and presented with acute confusion Noted to be agitated and combative on admission Has been hallucinating at times Will not give any benzodiazepines and/or narcotics Discussed with the daughter We will start trazodone 25 mg every 4 hourly as needed for agitation No acute agitation and/or combative behavior Medically stable with confusion secondary to dementia Required 1 dose of Haldol last night for agitation Discussed with the psychiatrist. He has been under care of outpatient psychiatrist who has been trying to wean off duloxetine and giving Celexa Her duloxetine has been discontinued and Celexa 10 mg daily has been started Her gabapentin doses have been decreased to 100 mg 3 times daily and will be sent home with as needed dose to decrease the side effect She is more alert and awake, pleasantly confused and remains generally weak We will get PT and OT evaluation for possible placement which was discussed with the [id number] and the daughter Remains pleasantly confused without any agitation or combative behavior She will be discharged this afternoon Will be given small doses of trazodone as needed for agitation Semiresponsiveness- Noted to be very drowsy and has not been participating with conversation Does not seems to be in any acute distress He did not receive any narcotics pain medications or any benzodiazepines We will hold off her antipsychotic medications medications for now We will get a psychiatric evaluation if needed Condition resolved Hypertensive urgency Blood pressure noted to be high this morning at 201/96 Beta-davin doses have been increased Blood pressure is stable as of this morning She remains on the upper side otherwise stable Possible UTI Has been getting intravenous Rocephin Will await culture and sensitivity-negative so far Discontinue antibiotic (2) Dementia: (3) Chest pain: Presented with questionable chest pain Initial troponin minimally elevated She has chronically elevated troponin Did not have any EKG changes-doubt any ACS (4) Atrial fibrillation: Heart rate is controlled We will continue current medications To have occasional ectopic beats/VT but nothing is sustaining Continue current medication Diabetes (5) CKD (chronic kidney disease): (6) Systolic CHF, chronic: Remains euvolemic Advised more fluid intake but will not give any intravenous fluid No signs or symptoms of fluid overload and no shortness of breath (7) Abdominal pain: CT of the abdomen and pelvis remains unremarkable DVT prophylaxis Has been on Coumadin-INR remains therapeutic CODE STATUS Full Discussed with the daughter and the granddaughter Continue PT and OT evaluation and possible placement on discharge Admission and Anticipated Discharge Date Admission Date: September 25, 2020 Subjective The patient was seen and examined in medical telemetry unit She is an 84-year-old female with significant history of dementia was admitted with acute confusion Remains confused as of this morning with occasional agitation 09/25/2020 The patient was seen and examined in medical telemetry unit She remains confused but does not have any agitation or aggressive behavior Denies any acute symptoms of shortness of breath, palpitation, abdominal pain, nausea and or vomiting 09/26/2020 Patient was seen and examined in medical telemetry unit She remains very drowsy today and has not been responding to commands but remains in hemodynamically stable Not missed receive any narcotics 09/27/2020 The patient was seen and examined in medical telemetry unit She has been much better as of this morning and required 1 dose of Haldol last night for agitation She remains pleasantly confused but denies any acute symptoms 09/28/2020 The patient was seen and examined in medical telemetry unit She remains generally weak and lethargic and pleasantly confused She is willing to participate in PT and OT Denies any other symptoms 09/29/2020 The patient was seen and examined in medical telemetry unit She remains pleasantly confused but denies any acute symptoms She is very happy that she will be going home Review of Systems Review of Systems: All systems reviewed and are unremarkable except as noted below Neurologic: Remains pleasantly confused. Generally weak and lethargic Physical Exam Physical Exam: Lying in bed without any distress Constitutional: well developed, well nourished, + ill appearing and + obese Eyes: PERRL, conjunctivae normal, anicteric sclerae ENMT: external ear and nose normal, oropharynx normal Neck: trachea midline, no thyromegaly Respiratory: no respiratory distress (Minimal distress due to shortness of breath) Auscultation: lungs clear to auscultation bilaterally, + crackles (Minimal crackles at the bases) and + rhonchi Cardiovascular: Rate/Rhythm: + irregularly irregular Heart Sounds: + murmur (2/6 ESM over precordium) Gastrointestinal (Abdomen): Inspection/Auscultation: normal bowel sounds; abdomen not distended Percussion/Palpation: abdomen soft; abdomen nontender Musculoskeletal: No acute arthritis in any joint Psychiatric: Orientation: alert and cooperative; + not oriented x 3 Affect: + irritable affect Mood: + depressed mood Lymphatic: no cervical or axillary lymphadenopathy Results & Data Results & Data ([facility]) Vital Signs (Past 12 Hours) Vital Signs Temp Pulse Pulse Resp BP BP Pulse Ox 09/29/20 07:44 36.9 C 97 H 20 168/70 H 98 09/29/20 05:41 92 H 176/80 H 09/29/20 05:36 176/80 H 09/29/20 03:33 36.9 C 96 H 19 193/84 H 98 09/29/20 00:00 79 176/92 H 09/28/20 23:21 36.8 C 104 H 18 185/101 H 95 Medications Administered Current Inpatient Medications Acetaminophen (Acetaminophen 325 Mg Tab) 650 mg PO Q4H PRN PRN Reason: Pain or Fever Stop: 10/23/20 20:54 Albuterol (Albut/Ipratrop 3mg/0.5mg Neb 3 Ml Vial) 3 ml NEB Q4R PRN PRN Reason: wheeze Stop: 10/23/20 22:59 Last Admin: 09/24/20 04:15 Dose: 3 ml Documented by: Citalopram Hydrobromide (Citalopram 20 Mg Tab) 10 mg PO HS [facility] Stop: 10/23/20 21:29 Last Admin: 09/25/20 21:47 Dose: 10 mg Documented by: Clopidogrel Bisulfate (Clopidogrel Bisulfate 75 Mg Tab) 75 mg PO QAM O[facility] Stop: 10/24/20 08:59 Last Admin: 09/29/20 07:57 Dose: 75 mg Documented by: Dextrose (Dextrose 50% 50 Ml Syringe) 25 - 50 ml IV UD PRN; Protocol PRN Reason: Hypoglycemia Protocol Stop: 10/23/20 20:54 Digoxin (Digoxin 0.125 Mg Tab) 0.125 mg PO MoWeFr@1600 [facility] Stop: 10/23/20 20:54 Last Admin: 09/28/20 16:38 Dose: 0.125 mg Documented by: Duloxetine HCl (Duloxetine Hcl 20 Mg Cap) 20 mg PO HS ORESTES Stop: 10/23/20 20:59 Last Admin: 09/25/20 21:47 Dose: 20 mg Documented by: Gabapentin (Gabapentin 100 Mg Cap) 100 mg PO BID ORESTES Stop: 10/27/20 11:44 Last Admin: 09/29/20 07:58 Dose: 100 mg Documented by: Glucagon (Glucagon For Inj 1 Mg Vial) 1 mg SQ UD PRN; Protocol PRN Reason: Hypoglycemia Protocol Stop: 10/23/20 20:54 Glucose (Glucose 10 Tabs/Tube) 4 - 8 tabs PO UD PRN; Protocol PRN Reason: Hypoglycemia Protocol Stop: 10/23/20 20:54 Glucose (Glucose 40% Gel 15 Gm Tube) 15 - 30 gm PO UD PRN; Protocol PRN Reason: Hypoglycemia Protocol Stop: 10/23/20 20:54 Haloperidol Lactate (Haloperidol Lactate 5 Mg/Ml 1 Ml Vial) 5 mg IM Q8 PRN PRN Reason: Agitation Stop: 10/23/20 17:04 Last Admin: 09/28/20 05:15 Dose: 5 mg Documented by: Insulin Aspart (Insulin Aspart 100 Units/Ml 3 Ml Pen) 0 units SC [facility]; Protocol Stop: 10/23/20 22:59 Last Admin: 09/29/20 08:03 Dose: 11 units Documented by: Insulin Glargine (Insulin Glargine Solostar 100 Units/Ml 3 Ml Pen) [address] [facility]; Protocol Stop: 10/23/20 22:59 Last Admin: 09/29/20 07:53 Dose: 25 units Documented by: Isosorbide Mononitrate (Isosorbide [place] Extended Rel 30 Mg Tabcr) 30 mg PO BID [facility] Stop: 10/23/20 20:59 Last Admin: 09/29/20 07:57 Dose: 30 mg Documented by: Metoprolol Succinate (Metoprolol Succ 50mg Ext Rel Tab) 50 mg PO DAILY [facility] Stop: 10/25/20 08:59 Last Admin: 09/29/20 07:54 Dose: 50 mg Documented by: Metoprolol Tartrate (Metoprolol Tartrate 1 Mg/Ml Vial) 5 mg IV Q6 PRN PRN Reason: Hypertension Stop: 10/28/20 00:00 Last Admin: 09/29/20 05:41 Dose: 5 mg Documented by: Miconazole Nitrate (Miconazole Nitrate Powder 43 Gm) 1 appln EXT PRN PRN PRN Reason: Affected Skin Folds Stop: 10/23/20 21:26 Last Admin: 09/24/20 15:59 Dose: 1 appln Documented by: Miscellaneous (Carbohydrates For Hypoglycemia ) 15 - 30 gm PO UD PRN PRN Reason: Hypoglycemia Protocol Stop: 10/23/20 20:54 Miscellaneous Information (Pharmacy Glycemic Mgmt Consult) 1 ea N/A UD PRN; Protocol PRN Reason: Consult Stop: 10/23/20 21:43 Multivitamins/Minerals (Calcium 600mg + Vit D 400 Iu Tab) 1 tab PO BID [facility] Stop: 10/23/20 21:29 Last Admin: 09/29/20 07:57 Dose: 1 tab Documented by: Ondansetron HCl (Ondansetron Inj 2 Mg/Ml 2 Ml Vial) 4 mg IV Q6H PRN PRN Reason: Nausea Stop: 10/23/20 20:54 Pantoprazole Sodium (Pantoprazole 40 Mg Tab) 40 mg PO BID [facility] Stop: 10/23/20 20:59 Last Admin: 09/29/20 07:57 Dose: 40 mg Documented by: Polyethylene Glycol (Polyethylene (Miralax) 17 Gm Pack) 17 gm PO DAILY PRN PRN Reason: Constipation Stop: 10/23/20 20:54 Quetiapine Fumarate (Quetiapine Fumarate 25 Mg Tablet) 25 mg PO HS [facility] Stop: 10/23/20 20:59 Last Admin: 09/25/20 21:47 Dose: 25 mg Documented by: Rosuvastatin Calcium (Rosuvastatin Calcium 20 Mg Tab) 20 mg PO DAILY [facility] Stop: 10/24/20 08:59 Last Admin: 09/29/20 07:57 Dose: 20 mg Documented by: Spironolactone (Spironolactone 12.5 Mg Tab) 12.5 mg PO DAILY [facility] Stop: 10/24/20 08:59 Last Admin: 09/29/20 07:58 Dose: 12.5 mg Documented by: Trazodone HCl (Trazodone Hcl 50 Mg Tab) 25 mg PO Q4H PRN PRN Reason: Agitation Stop: 10/24/20 14:29 Last Admin: 09/28/20 01:30 Dose: 25 mg Documented by: Warfarin Sodium (Warfarin Sod 1 Mg Tab) 1 mg PO [id number]@1600 [facility] Stop: 10/23/20 20:54 Last Admin: 09/27/20 15:44 Dose: Not Given Documented by: Warfarin Sodium (Warfarin Sod 2 Mg Tab) 2 mg PO Mo@1600 [facility] Stop: 10/28/20 17:34 Last Admin: 09/28/20 16:38 Dose: 2 mg Documented by: (1) CKD (chronic kidney disease) Chronic kidney disease stage: unspecified stage Qualified Code(s): N18.9 - Chronic kidney disease, unspecified (2) Abdominal pain Abdominal location: unspecified location Qualified Code(s): R10.9 - Unspecified abdominal pain
--- NOTE | 2020-09-29 19:11 | Discharge Summary ---
Date of Service September 29, 2020 Admission HPI Per Admitting Provider This is a 84-year-old female with complex past medical history of chronic A. fib, history of coronary artery disease diastolic CHF dementia. Was seen at her family physician's office today as she was not feeling well for past few days. She also complained of chest heaviness, dizzy spell, was asked to come to the ER for further evaluation. In the ER patient was very confused, agitated, delirious, wants to leave the ER, She has been asking repeatedly to sign paperwork /refused to be admitted in the hospital: As they do not do anything, Further history is limited due to patient's mental status. Patient's was present at bedside, reports at baseline patient has dementia, confusion, has not been eating and drinking well past 2 to 3 days. does not believe he will be able to take care of the patient at home, patient's was not able to sit up on her own in the ER. I spoke with patient's daughter over the phone, patient gets very confused, agitated, severe sundowning during her hospital stay. As there is no evidence of active or ongoing heart attack or cardiac issue noted on ER labs/studies. Family was hoping patient to be discharged to home from ER with p.o. antibiotics for possible UTI Plan of care discussed with ER physician, and patient's , patient was very deconditioned, generalized weakness, delirious, not safe to be discharged home with elderly . Patient got very combative, attempted to climb out of bed IV Ativan ordered by ER physician; required 4 persons to assist to administer as patient was constantly swinging at nursing staff. Patient will be admitted to medical telemetry, ordered as needed IM Haldol for agitation/scheduled Seroquel at bedtime Fall precaution, bed alarm Admission Exam Per Admitting Provider Constitutional: Agitated, angry Eyes: Unable to have any detailed physical exam as patient was not cooperative at all Respiratory: no respiratory distress and no cough Auscultation: + wheezes (Audible wheeze) Gastrointestinal (Abdomen): Percussion/Palpation: abdomen soft; abdomen nontender Neurologic: Patient remains very agitated, combative, does not allow any physical exam Psychiatric: Affect: + angry affect Thought Content: + paranoid and + delusions Principal Diagnosis Metabolic encephalopathy, dementia with occasional agitation, atrial fibrillation on Coumadin, hypertension, CKD Discharge Exam Constitutional well developed, well nourished, + ill appearing and + obese Eyes PERRL, conjunctivae normal, anicteric sclerae ENMT external ear and nose normal, oropharynx normal Neck trachea midline, no thyromegaly Respiratory no respiratory distress (Minimal distress due to shortness of breath) Auscultation: lungs clear to auscultation bilaterally, + crackles (Minimal crackles at the bases) and + rhonchi Cardiovascular Rate/Rhythm: + irregularly irregular Heart Sounds: + murmur (2/6 ESM over precordium) Gastrointestinal (Abdomen) Inspection/Auscultation: normal bowel sounds; abdomen not distended Percussion/Palpation: abdomen soft; abdomen nontender Psychiatric Orientation: alert and cooperative; + not oriented x 3 Affect: + irritable affect Mood: + depressed mood Lymphatic no cervical or axillary lymphadenopathy Discharge Data Allergies Allergy/AdvReac Type Severity Reaction Status Date / Time Sulfa (Sulfonamide Allergy Unknown HIVES Unverified 09/23/20 15:55 Antibiotics) Consultations 09/23/20 15:39 ED Decision to Admit Stat 09/23/20 20:55 Consult Case Management - Discharge Planning Routine Ordered Studies 09/23/20 13:55 CT abd pelvis IV con only Stat Hospital Course (1) Acute confusional state: Likely has metabolic encephalopathy due to multiple factors as mentioned below She has history of dementia and presented with acute confusion Noted to be agitated and combative on admission Has been hallucinating at times Will not give any benzodiazepines and/or narcotics Discussed with the daughter We will start trazodone 25 mg every 4 hourly as needed for agitation No acute agitation and/or combative behavior Medically stable with confusion secondary to dementia Required 1 dose of Haldol last night for agitation Discussed with the psychiatrist. He has been under care of outpatient psychiatrist who has been trying to wean off duloxetine and giving Celexa Her duloxetine has been discontinued and Celexa 10 mg daily has been started Her gabapentin doses have been decreased to 100 mg 3 times daily and will be sent home with as needed dose to decrease the side effect She is more alert and awake, pleasantly confused and remains generally weak We will get PT and OT evaluation for possible placement which was discussed with the [id number] and the daughter Remains pleasantly confused without any agitation or combative behavior She will be discharged this afternoon Will be given small doses of trazodone as needed for agitation Semiresponsiveness- Noted to be very drowsy and has not been participating with conversation Does not seems to be in any acute distress He did not receive any narcotics pain medications or any benzodiazepines We will hold off her antipsychotic medications medications for now We will get a psychiatric evaluation if needed Condition resolved Hypertensive urgency Blood pressure noted to be high this morning at 201/96 Beta-davin doses have been increased Blood pressure is stable as of this morning She remains on the upper side otherwise stable Possible UTI Has been getting intravenous Rocephin Will await culture and sensitivity-negative so far Discontinue antibiotic (2) Dementia: (3) Chest pain: Presented with questionable chest pain Initial troponin minimally elevated She has chronically elevated troponin Did not have any EKG changes-doubt any ACS (4) Atrial fibrillation: Heart rate is controlled We will continue current medications To have occasional ectopic beats/VT but nothing is sustaining Continue current medication Diabetes (5) CKD (chronic kidney disease): (6) Systolic CHF, chronic: Remains euvolemic Advised more fluid intake but will not give any intravenous fluid No signs or symptoms of fluid overload and no shortness of breath (7) Abdominal pain: CT of the abdomen and pelvis remains unremarkable DVT prophylaxis Has been on Coumadin-INR remains therapeutic CODE STATUS Full Discussed with the daughter and the granddaughter Continue PT and OT evaluation and possible placement on discharge Total Time Total Time Spent Total Time Spent (In Minutes): 35 minutes Total Time Includes: Examination of the Patient, Discharge Planning, Medication Reconciliation and Communication With Other Providers Discharge Plan Discharge Items Patient Disposition: Home - Home Health Services Reason For Visit: CHEST PAIN,ELEVATED TROPONIN Discharge Diagnosis: Metabolic encephalopathy, dementia with occasional agitation, atrial fibrillation on Coumadin, hypertension, CKD Condition on Discharge: Fair Activity: As commented below Activity Comment: Please take extreme precautions to avoid fall Non-emergency contact: Primary Care Provider Call non-emergency contact if: you have any medication questions and your symptoms worsen Follow-up/Referrals: Camila Olson MD [Primary Care Provider] - (Date & Time 10/02/2020 11:50 AM Provider Janny Alvarado DO Department Internal Medicine [facility] ) Diet: Carb Consistent or DM2 and Low Sodium (2gm) Diet Comment: Minced and moist Addtl Attending Provider Instructions: Please take precaution to avoid falls Please take medications as directed Pending Studies at Discharge: No Stand-Alone Forms: [facility] [employer], Smoking Cessation Medications and DC Order Prescriptions: New trazodone 50 mg Tablet 25 mg PO Q4H PRN (Reason: agitation) 30 Days Qty: 60 RF: 0 metoprolol succinate 50 mg Tablet Extended Release 24 Hr 50 mg PO DAILY 30 Days Qty: 30 RF: 0 gabapentin 100 mg Capsule 100 mg PO BID 30 Days Qty: 60 RF: 0 Continued clopidogrel [Plavix] 75 mg Tablet 75 mg PO QAM RF: 0 nitroglycerin [Nitrostat] 0.4 mg Tablet, Sublingual 0.4 mg Sublingual UD PRN (Reason: Chest Pain) RF: 0 furosemide [Lasix] 40 mg Tablet 40 mg PO [id number] RF: 0 rosuvastatin 20 mg tablet 20 mg PO DAILY RF: 0 digoxin 125 mcg tablet 125 mcg PO MOWEFR RF: 0 insulin NPH and regular human 100 unit/mL (70-30) suspension See Rx Instructions .ROUTE .COMPLEX RF: 0 warfarin 2 mg tablet 1 mg PO [id number] RF: 0 warfarin 2 mg tablet 2 mg PO MO RF: 0 sennosides [senna] 8.6 mg Tablet 8.6 mg PO DAILY PRN (Reason: Constipation) RF: 0 albuterol sulfate 90 mcg/actuation Hfa Aerosol Inhaler 2 puff INHALATION Q4 PRN (Reason: Shortness Of Breath Or Wheezing) RF: 0 citalopram 10 mg tablet 10 mg PO HS RF: 0 miconazole nitrate 2 % Powder 1 applic TOPICAL DAILY PRN (Reason: Rash) RF: 0 calcium carbonate-vitamin D3 [Calcium 500 + D] 500 mg(1,250mg) -200 unit Tablet 1 tab PO BID RF: 0 isosorbide mononitrate 30 mg tablet extended release 24 hr 30 mg PO BID Qty: 0 RF: 0 pantoprazole 40 mg Tablet,Delayed Release (Dr/Ec) 40 mg PO BID Qty: 0 RF: 0 triamcinolone acetonide 0.1 % Cream 1 applic TOPICAL BID RF: 0 spironolactone 25 mg Tablet 12.5 mg PO DAILY RF: 0 acetaminophen [Tylenol Arthritis Pain] 650 mg Tablet Extended Release 650 mg PO Q8H PRN (Reason: PAIN) RF: 0 Discontinued gabapentin 300 mg capsule 300 mg PO BID RF: 0 duloxetine 20 mg Capsule,Delayed Release(Dr/Ec) 20 mg PO HS RF: 0 metoprolol succinate 25 mg tablet extended release 24 hr 25 mg PO DAILY RF: 0 tramadol 50 mg tablet 50 mg PO Q8H PRN (Reason: pain) RF: 0 Discharge Orders: Discharge Order (Routine); Ordered 09/29/20 Ordered By: Abelardo Martins/Other Patient Handouts: High Blood Sugar (Hyperglycemia), Hypoglycemia (Low Blood Sugar), Managing Type 2 Diabetes Admission Data Admit Date/Time: 09/25/20 15:10 Attending Provider: Abelardo Hebert Admit Provider: Diana Manley Primary Care Provider: Camila Olson Other Providers: Diana Manley Other Interventions: Discharge Summary Assessment (RN) Last Done: 09/29/20 13:59
== END 2020-09-29 15:00 | disposition home health service (06) | DRG 689 ==
LOC: 2N 12:49 → ED 12:49 → SUATTDRO 16:11 → 2N 20:53 → 2W 09-24 22:32